=== PATIENT | male | born 1955 | race Caucasian/White ===

== ENCOUNTER 2016-07-29 09:17 | Emergency (ER) | payer OTHER ==
[2016-07-29] MEDS ORDERED: SODIUM CHLORIDE 0.9% 1,000 ML IV ONE (09:48)
--- NOTE | 2016-07-29 09:52 | ED ---
Fall HPI - General Chief Complaint: Fall Stated Complaint: Shortness of Breath Time Seen by Provider: 07/29/16 09:26 Source: patient, RN notes reviewed Mode of arrival: EMS - History of Present Illness Initial Comments: Patient is a 61-year-old male presents to the emergency room for elevation a fall injury. Patient states he had 2 beers last night. Patient states he drinks about 3 beers per day. Patient states he was getting off the toilet and fell into his bathtub. Patient states he hit the right side of his head against the faucet. Patient denies loss of consciousness. Patient denies taking blood thinners. Patient states he is usually on oxygen for COPD. Patient states that he was not on his oxygen when he fell so he continued to call for help until someone found him. Patient states he lives in a motel and someone from outside of his room called 911. Patient states he was feeling shortness of breath because he was not on his oxygen. Patient states she's not sure how long he laid in the bathtub before. Patient states he has an abrasion over his right shoulder with right shoulder pain. Patient states he is no longer short of breath because he is on oxygen again. Patient denies chest pain. Patient denies nausea or vomiting. Patient denies any other injuries during incident. Patient denies numbness or tingling when on his legs. Patient denies saddle anesthesia. Patient denies fecal or urinary incontinence. Patient denies suicidal or homicidal thoughts. - Related Data Home Medications Medication Instructions Recorded Confirmed Albuterol Inhaler [Ventolin Hfa 2 puff INHALATION RT-Q6H PRN 08/25/15 07/29/16 Inhaler] Ergocalciferol [Vitamin D2 50,000 unit PO QMONTH 08/25/15 07/29/16 (DRISDOL)] Flunisolide [Aerospan] 2 puff INHALATION RT-BID 12/14/15 07/29/16 Benazepril HCl 40 mg PO DAILY 07/29/16 07/29/16 Simvastatin [Zocor] 80 mg PO HS 07/29/16 07/29/16 rOPINIRole HCL [Requip] 0.25 - 0.5 mg PO HS 07/29/16 07/29/16 Previous Rx's Medication Instructions Recorded Digoxin [Lanoxin] 125 mcg PO DAILY tab 09/06/15 Insuln Asp Prt/Insulin Aspart 18 unit SQ AC-SUPPER vial 09/06/15 [NovoLOG MIX 70-30 VIAL] Insuln Asp Prt/Insulin Aspart 30 unit SQ AC-BRKFST vial 09/06/15 [NovoLOG MIX 70-30 VIAL] Pantoprazole [Protonix] 40 mg PO AC-BRKFST tablet. 09/06/15 Allergies Allergy/AdvReac Type Severity Reaction Status Date / Time No Known Allergies Allergy Verified 12/14/15 20:24 Review of Systems ROS Statement: Those systems with pertinent positive or pertinent negative responses have been documented in the HPI. ROS Other: All systems not noted in ROS Statement are negative. Past Medical History Past Medical History: Heart Failure, COPD, CVA/TIA, Diabetes Mellitus, Hypertension, Pneumonia Additional Past Medical History / Comment(s): irregular heart beat, hard time urinating have to sit it takes a while per patient [place], cva july 2015 and residual weakness in legs, etoh, falls, 02 2 liters n/c, etoh, increasing falls History of Any Multi-Drug Resistant Organisms: None Reported Past Surgical History: Appendectomy Additional Past Surgical History / Comment(s): removal testicles unsure why, one removed when he was 19 the other six years ago Past Anesthesia/Blood Transfusion Reactions: Unable to Obtain Past Psychological History: No Psychological Hx Reported Additional Psychological History / Comment(s): pt stated its getting difficult for hime to take care of himself when living alone-increased falls, uses a walker when up-has a nurse lalo the comes to help helps clean,shop. Smoking Status: Current every day smoker Past Alcohol Use History: Daily Additional Past Alcohol Use History / Comment(s): 6-7 beers a day, started smoking at age 10, ippd Past Drug Use History: None Reported Additional Drug Use History / Comment(s): quit drug use 1995 - Past Family History Father History Unknown: Yes Additional Family Medical History / Comment(s): from complications from alcoholism Mother Additional Family Medical History / Comment(s): committed suicide by hanging. General Exam - General Exam Comments Initial Comments: Sitting in the room, no distress. General appearance: alert, appears intoxicated Head exam: Present: atraumatic, normocephalic, normal inspection Eye exam: Present: normal appearance, PERRL, EOMI Pupils: Present: normal accommodation ENT exam: Present: normal exam Neck exam: Present: normal inspection Respiratory exam: Present: normal lung sounds bilaterally. Absent: respiratory distress Cardiovascular Exam: Present: normal rhythm, tachycardia, normal heart sounds GI/Abdominal exam: Present: soft, normal bowel sounds. Absent: distended, tenderness, guarding, rebound, rigid Right Shoulder Exam: Present: full ROM, abrasion (Small abrasion over her anterior shoulder). Absent: tenderness, tenderness over AC joint Neuro motor exam: Present: wrist extension intact, thumb opposition intact, thumb IP flexion intact, thumb adduction intact, fingers 2-5 abduction intact Vascular: Present: normal capillary refill (Capillary refill less than 2 seconds ), radial pulse (2+), ulnar pulse (2+) Back exam: Present: normal inspection Neurological exam: Present: alert Psychiatric exam: Present: normal affect, normal mood Skin exam: Present: warm, dry. Absent: rash Course Vital Signs 07/29/16 07/29/16 07/29/16 09:19 12:00 14:35 Temperature 98.0 F Pulse Rate 110 H 108 H 109 H Respiratory 20 20 18 Rate Blood Pressure 167/101 141/88 151/70 O2 Sat by Pulse 93 L 95 98 Oximetry 07/29/16 18:23 Temperature 98.1 F Pulse Rate 114 H Respiratory 20 Rate Blood Pressure 164/105 O2 Sat by Pulse 96 Oximetry Medical Decision Making - Medical Decision Making Patient is a 61-year-old male presents to the emergency room for evaluation fall injury. Patient is intoxicated. Brain/C-spine CT shows no acute findings. Shoulder x-ray shows no acute findings. Patient's alcohol level 241. Patient has no means of transportation home. Patient be discharged when clinically sober. Patient's BAT 0.00 at 1822. Patient will be discharged home. - Lab Data Result diagrams: 07/29/16 10:13 07/29/16 10:13 Lab Results 07/29/16 07/29/16 07/29/16 Range/Units 10:13 10:13 13:18 WBC 5.6 (3.8-10.6) k/uL RBC 4.78 (4.30-5.90) m/uL Hgb 14.7 (13.0-17.5) gm/dL Hct 44.8 (39.0-53.0) % MCV 93.8 (80.0-100.0) fL MCH 30.7 (25.0-35.0) pg MCHC 32.7 (31.0-37.0) g/dL RDW 13.8 (11.5-15.5) % Plt Count 135 L (150-450) k/uL Neutrophils % 77 % Lymphocytes % 15 % Monocytes % 5 % Eosinophils % 1 % Basophils % 1 % Neutrophils # 4.3 (1.3-7.7) k/uL Lymphocytes # 0.9 L (1.0-4.8) k/uL Monocytes # 0.3 (0-1.0) k/uL Eosinophils # 0.1 (0-0.7) k/uL Basophils # 0.0 (0-0.2) k/uL Sodium 140 (137-145) mmol/L Potassium 4.6 (3.5-5.1) mmol/L Chloride 93 L (98-107) mmol/L Carbon Dioxide 33 H (22-30) mmol/L Anion Gap 14 mmol/L BUN 13 (9-20) mg/dL Creatinine 0.55 L (0.66-1.25) mg/dL Est GFR (MDRD) Af Amer >60 (>60 ml/min/1.73 sqM) Est GFR (MDRD) Non-Af >60 (>60 ml/min/1.73 sqM) Glucose 113 H (74-99) mg/dL Calcium 8.7 (8.4-10.2) mg/dL Total Bilirubin 0.7 (0.2-1.3) mg/dL AST 48 (17-59) U/L ALT 36 (21-72) U/L Alkaline Phosphatase 75 (38-126) U/L Total Protein 7.5 (6.3-8.2) g/dL Albumin 4.3 (3.5-5.0) g/dL Urine Color Light Yellow Urine Appearance Clear (Clear) Urine pH 5.0 (5.0-8.0) Ur Specific [place] 1.004 (1.001-1.035) Urine Protein Trace H (Negative) Urine Glucose (UA) Negative (Negative) Urine Ketones Negative (Negative) Urine Blood Negative (Negative) Urine Nitrite Negative (Negative) Urine Bilirubin Negative (Negative) Urine Urobilinogen <2.0 (<2.0) mg/dL Ur Leukocyte Esterase Negative (Negative) Urine Opiates Screen Not Detected (NotDetected) Ur Oxycodone Screen Not Detected (NotDetected) Urine Methadone Screen Not Detected (NotDetected) Ur Propoxyphene Screen Not Detected (NotDetected) Ur Barbiturates Screen Not Detected (NotDetected) U Tricyclic Antidepress Not Detected (NotDetected) Ur Phencyclidine Scrn Not Detected (NotDetected) Ur Amphetamines Screen Not Detected (NotDetected) U Methamphetamines Scrn Not Detected (NotDetected) U Benzodiazepines Scrn Not Detected (NotDetected) Urine Cocaine Screen Not Detected (NotDetected) U Marijuana (THC) Screen Not Detected (NotDetected) Serum Alcohol 241 mg/dL - Radiology Data Radiology results: report reviewed, image reviewed Disposition Clinical Impression: Fall, Alcohol intoxication Disposition: HOME SELF-CARE Condition: Good Instructions: Alcohol Intoxication (ED), Alcohol Dependence (ED) Additional Instructions: Refrain from drinking alcohol. Please follow up with primary care provider in 1- 2 days. If any new symptom arises or symptoms worsen, return to ER as soon as possible. Referrals: Danny Morse MD [Primary Care Provider] - 1-2 days Time of Disposition: 18:22
[2016-07-29 10:34] LABS: ALT 36 U/L (21-72); AST 48 U/L (17-59); Alkaline Phosphatase 75 U/L (38-126); Anion Gap 14 mmol/L; Blood Urea Nitrogen 13 mg/dL (9-20); Calcium 8.7 mg/dL (8.4-10.2); Carbon Dioxide 33 mmol/L (22-30); Chloride 93 mmol/L (98-107); Glucose 113 mg/dL (74-99); Non-African American GFR(MDRD) >60 (>60 ml/min/1.73 sqM); Potassium 4.6 mmol/L (3.5-5.1); Sodium 140 mmol/L (137-145); Total Bilirubin 0.7 mg/dL (0.2-1.3); Total Protein 7.5 g/dL (6.3-8.2)
[2016-07-29 10:35] LABS: Basophils % (A) 1 %; CH 29.9; Eosinophils # (A) 0.1 k/uL (0-0.7); Eosinophils % (A) 1 %; HCT 44.8 % (39.0-53.0); HDW 2.47; HGB 14.7 gm/dL (13.0-17.5); Luc # (Auto) 0.08; Luc % (Auto) 1; Lymphocytes # (A) 0.9 k/uL (1.0-4.8); Lymphocytes % (A) 15 %; MCH 30.7 pg (25.0-35.0); MCHC 32.7 g/dL (31.0-37.0); MCV 93.8 fL (80.0-100.0); Mean Platelet Volume 7.8; Monocytes # (A) 0.3 k/uL (0-1.0); Monocytes % (A) 5 %; Neutrophils # (A) 4.3 k/uL (1.3-7.7); Neutrophils % (A) 77 %; RBC 4.78 m/uL (4.30-5.90); RDW 13.8 % (11.5-15.5); WBC 5.6 k/uL (3.8-10.6); WBC (Perox) 5.25
[2016-07-29 10:42] LABS: Alcohol 241 mg/dL
--- NOTE | 2016-07-29 11:22 | CT ---
EXAMINATION TYPE: CT brain cspine wo con DATE OF EXAM: 07/29/2016 10:45 AM COMPARISON: 12/14/2015 HISTORY: 61-year-old male with pain after fall CT DLP: DLP brain 1090.4 and Cervical 604.7 mGycm Automated exposure control for dose reduction was used. Technique: Examination of the head was done in axial plane without intravenous contrast. Coronal and sagittal reconstructions performed. CT of the cervical spine was obtained in axial plane without intravenous injection of contrast mater ial. Coronal and sagittal reformatted images were obtained from the axial views for evaluation of f ractures, spinal alignment and canal. FINDINGS: Head: There is no evidence of acute intracranial hemorrhage, acute ischemic changes, mass effect, or extra -axial fluid collection. There is no effacement of cerebral sulci or basal subarachnoid cisterns. T here is no hydrocephalus. There is no midline shift. Grant-white matter distinction is preserved. Redemonstrated 5 mm hyperdense nodule along the left paramedian foramen of [place]. Mild patchy perive ntricular and deep white matter hypodensities are unchanged. Rightward nasal septal deviation. Opacification of the right mastoid air cells persists. Orbits and g lobes are intact. No calvarial fracture. Cervical spine: No craniocervical junction abnormality, predental space widening, or prevertebral soft tissue swellin g. Stable advanced distention plate degenerative changes especially in the mid cervical spine with disc osteophyte complexes at C4-C5 and C5-C6 probably causing at least moderate canal stenosis. Stable grade 1 anterolisthesis at C2-C3 likely on a degenerative basis. Multilevel uncovertebral joint and facet degenerative change results in variable moderate to severe n euroforaminal stenoses. No acute fracture of the cervical spine. Sagittal and coronal reformatted images confirm above findings. COMBINED IMPRESSION: 1. No acute intracranial abnormality seen. 2. 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 No associated obstructive hydrocep halus at this time. 3. No acute fracture of the cervical spine. Stable degenerative grade 1 anterolisthesis at C2-C3 and moderate to severe spondylotic change as mentioned above. 4. Retained secretions within the right mastoid air cells. Correlate for any mastoid pain to exclude mastoiditis.
--- NOTE | 2016-07-29 11:28 | XR ---
EXAMINATION TYPE: XR shoulder complete RT DATE OF EXAM: 07/29/2016 11:10 AM COMPARISON: NONE HISTORY: 61-year-old male fall and right shoulder laceration with pain TECHNIQUE: 3 views FINDINGS: There is moderate to severe degenerative joint space narrowing with marginal spurring at the acromioc lavicular joint. Subacromial space is preserved. No acute fracture or dislocation. There is some matu re callus associated with sixth posterior right rib compatible with a remote rib fracture. IMPRESSION: Degenerative changes at the AC joint. No acute osseous abnormality seen. Old right posterior sixth ri b fracture deformity.
[2016-07-29] MEDS ORDERED: LORazepam 2 MG/ML SYRINGE IV STA (13:02)
[2016-07-29 13:25] LABS: Appearance,Urine Clear (Clear); Bilirubin,Urine Negative (Negative); Glucose,Urine (UA) Negative (Negative); Ketones,Urine Negative (Negative); Leukocyte Esterase,Urine Negative (Negative); Nitrite,Urine Negative (Negative); Protein,Urine Trace (Negative); Specific Gravity,Urine 1.004 (1.001-1.035); UA Billing (MACRO vs. MICRO) CHEM; Urobilinogen,Urine <2.0 mg/dL (<2.0)
[2016-07-29 18:24] VITALS: BP 164/105; PULSE 114; RESP 20; TEMP 98.1
== END 2016-07-29 18:40 | disposition home or self-care (01) ==
LOC: EC 09:17
DX: S40.211A Abrasion of right shoulder, initial encounter (principal); F10.129 Alcohol abuse with intoxication, unspecified; R00.0 Tachycardia, unspecified; J44.9 Chronic obstructive pulmonary disease, unspecified; I10 Essential (primary) hypertension; F17.200 Nicotine dependence, unspecified, uncomplicated; Z79.51 Long term (current) use of inhaled steroids; Z79.899 Other long term (current) drug therapy; W18.2XXA Fall in (into) shower or empty bathtub, initial encounter; Y92.59 Other trade areas as the place of occurrence of the external cause
CPT/HCPCS: 99285; 96374; 96361; 82075; 36415; 80053; 85025; 81003; 80306; 80320; 73030; 72125; 70450; J2060

== ENCOUNTER 2016-08-14 13:05 | Inpatient (IN) | payer OTHER ==
[2016-08-14] MEDS ORDERED: SODIUM CHLORIDE 0.9% 1,000 ML IV STA (13:19)
[2016-08-14] MEDS ORDERED: methylPREDNISolone SOD SUCCI 125 MG/2 ML VIAL IV STA (13:19)
[2016-08-14] MEDS ORDERED: SODIUM CHLORIDE 0.9% 500 ML IV STA (13:19)
[2016-08-14] MEDS ORDERED: IPRATROPIUM-ALBUTEROL 3 ML NEB INHALATION STA (13:19)
--- NOTE | 2016-08-14 13:26 | ED ---
SOB HPI - General Stated Complaint: EPS Time Seen by Provider: 08/14/16 13:14 - History of Present Illness Initial Comments: This 61-year-old white male presents with a complaint of difficulty in breathing. This is been relatively chronic pain but worse over the last several days. He is had a cough which is nonproductive. He states that it is worse when he smokes cigarettes. He does have a long-standing history of COPD. He is still actively utilizing tobacco. He also has a long-standing history of alcohol abuse. He states that he's been slowing down recently. He states that his last intake of alcohol was proximally 2 days and denies any current withdrawal symptoms. Report from EMS relates that the patient was found by home health care worker. She apparently relates that he has been in a wheelchair ever since she last saw him 3 days ago. He presents covered in stool and urine. He states that he has been too weak to ambulate. He denies any chest pains. He denies any known fevers. He does complain of bilateral lower extremity edema. He states that he is still been eating and drinking. Even though he is unable to ambulate, he has been ordering food and drink from the local [email or web address] store and they'll bring it directly into his house for him. He denies any nausea or vomiting. No other complaints or modifying factors. He apparently lives at home at the current time but ability to do so in the future is questionable. - Related Data Home Medications Medication Instructions Recorded Confirmed Albuterol Inhaler [Ventolin Hfa 2 puff INHALATION RT-Q6H PRN 08/25/15 08/14/16 Inhaler] Ergocalciferol [Vitamin D2 50,000 unit PO QMONTH 08/25/15 08/14/16 (DRISDOL)] Flunisolide [Aerospan] 2 puff INHALATION RT-BID 12/14/15 08/14/16 Benazepril HCl 40 mg PO DAILY 07/29/16 08/14/16 Simvastatin [Zocor] 80 mg PO HS 07/29/16 08/14/16 rOPINIRole HCL [Requip] 0.25 - 0.5 mg PO HS 07/29/16 08/14/16 Previous Rx's Medication Instructions Recorded Digoxin [Lanoxin] 125 mcg PO DAILY tab 09/06/15 Insuln Asp Prt/Insulin Aspart 18 unit SQ AC-SUPPER vial 09/06/15 [NovoLOG MIX 70-30 VIAL] Insuln Asp Prt/Insulin Aspart 30 unit SQ AC-BRKFST vial 09/06/15 [NovoLOG MIX 70-30 VIAL] Pantoprazole [Protonix] 40 mg PO AC-BRKFST tablet. 09/06/15 Allergies Allergy/AdvReac Type Severity Reaction Status Date / Time No Known Allergies Allergy Verified 08/14/16 14:16 Review of Systems ROS Statement: Those systems with pertinent positive or pertinent negative responses have been documented in the HPI. ROS Other: All systems not noted in ROS Statement are negative. Past Medical History Past Medical History: Heart Failure, COPD, CVA/TIA, Diabetes Mellitus, Hypertension, Pneumonia Additional Past Medical History / Comment(s): irregular heart beat, hard time urinating have to sit it takes a while per patient kake, cva july 2015 and residual weakness in legs, etoh, falls, 02 2 liters n/c, etoh, increasing falls History of Any Multi-Drug Resistant Organisms: None Reported Past Surgical History: Appendectomy Additional Past Surgical History / Comment(s): removal testicles unsure why, one removed when he was 19 the other six years ago Past Anesthesia/Blood Transfusion Reactions: Unable to Obtain Past Psychological History: No Psychological Hx Reported Additional Psychological History / Comment(s): pt stated its getting difficult for hime to take care of himself when living alone-increased falls, uses a walker when up-has a nurse lalo the comes to help helps clean,shop. Smoking Status: Current every day smoker Past Alcohol Use History: Daily Additional Past Alcohol Use History / Comment(s): 6-7 beers a day, started smoking at age 10, ippd Past Drug Use History: None Reported Additional Drug Use History / Comment(s): quit drug use 1995 - Past Family History Father History Unknown: Yes Additional Family Medical History / Comment(s): from complications from alcoholism Mother Additional Family Medical History / Comment(s): committed suicide by hanging. General Exam - General Exam Comments Initial Comments: GENERAL: The patient appears malnourished and cachectic. He is covered in feces and urine. VITAL SIGNS: Heart rate, blood pressure, respiratory rate reviewed as recorded in nurse's notes. EYES: Pupils are round and reactive. Extraocular movements are intact. There is bilateral moderate conjunctival erythema. ENT: No external evidence of injury, swelling, or ecchymosis. Airway is patent. Throat is clear. NECK: Nontender. No swelling or evidence of injury. No subcutaneous emphysema. Trachea is midline. No thyroid mass. HEART: Regular rate and rhythm. Good peripheral pulses. LUNGS/CHEST: There is diffuse significant wheezing and decreased aeration noted bilaterally. Pulse ox is approximately 71% on room air. No ecchymosis, subcutaneous emphysema, or tenderness. ABDOMEN: Abdomen soft without tenderness. No palpable masses or organomegaly. No peritoneal signs. No abdominal wall swelling or ecchymosis. EXTREMITIES: No extremity tenderness. Normal muscle tone and function. No thoracolumbar tenderness. There is moderate edema present to bilateral lower extremities. NEUROLOGIC: Sensation is grossly intact. Cranial nerve exam reveals face is symmetrical, tongue is midline, speech is clear. SKIN: No abrasions or ecchymosis is noted. No induration or masses noted. There is slight erythema noted to bilateral lower extremities. PSYCHIATRIC: Alert and oriented. Appropriate behavior and judgment. Course Vital Signs 08/14/16 08/14/16 08/14/16 13:25 14:05 14:15 Temperature 98.8 F Pulse Rate 106 H 110 H Respiratory 22 22 Rate Blood Pressure 147/68 O2 Sat by Pulse 78 L Oximetry 08/14/16 08/14/16 08/14/16 14:32 14:36 15:02 Temperature Pulse Rate 100 113 H 104 H Respiratory 22 18 Rate Blood Pressure 155/70 164/73 O2 Sat by Pulse 96 97 Oximetry 08/14/16 08/14/16 08/14/16 15:21 16:08 18:02 Temperature Pulse Rate 105 H 104 H 104 H Respiratory 22 22 18 Rate Blood Pressure 168/79 151/72 O2 Sat by Pulse 91 L 91 L Oximetry Medical Decision Making - Medical Decision Making The patient was seen and examined. All diagnostics were reviewed. The EKG shows a sinus tachycardia at a rate of 107. There is some possible left atrial enlargement. The FL interval is 174, castration is 102, and QTc interval is 448. There is no acute ST-T wave changes otherwise noted. The patient's sodium and chloride came back fairly low. He is moderately hydrated. He had approximately 1 L of normal saline. The remainder of labs came back showing that his BNP is fairly elevated. It is felt as though he does have a degree of conjunctivitis and is given some eyedrops. Initially, he was started on BiPAP as he was quite hypoxic and having difficulty in breathing. An ABG was done. It is felt as though the results are incorrect. It is felt as though the draw is a venous draw on the side where he is receiving IV fluids. The results do not seem to make much sense and do not correlate with his bicarb on his labs. He receives 3 breathing treatments and his breathing does improve although he remains moderately hypoxic. On last check was 92% on 5 L. He states that he feels much improved. Also receives some Solu-Medrol intravenously. His d- dimer came back elevated and a CT angiogram of his chest is ordered to rule out the possibility of pulmonary embolism. Congestive heart failure is in the differential as well. A repeat ABG is ordered and this is much improved and it is felt as though this is accurate. Is still does show a degree of hypoxia and some slight hypercapnia. The patient had a computed tomography scan of the thorax done and this does not show any definitive PE but is also a suboptimal study per radiologist. No infiltrates are identified. His felt as though his difficulty breathing is multifocal. He likely does have primarily a COPD exacerbation. The possibility of a bronchitis certainly is possible as well. The possibility of a degree of underlying CHF is possible. It is felt as though he benefit from admission to the intensive care unit. Case will be discussed with Dr. Morse in the near future. Approximately 45 minutes of critical care time was utilized and the treatment of the patient. Case will also be discussed with ICU physician in the near future. - Lab Data Result diagrams: 08/14/16 14:20 08/14/16 14:20 Lab Results 08/14/16 08/14/16 08/14/16 Range/Units 14:20 14:20 14:20 WBC 9.0 (3.8-10.6) k/uL RBC 4.80 (4.30-5.90) m/uL Hgb 14.7 (13.0-17.5) gm/dL Hct 43.7 (39.0-53.0) % MCV 90.9 (80.0-100.0) fL MCH 30.6 (25.0-35.0) pg MCHC 33.7 (31.0-37.0) g/dL RDW 13.7 (11.5-15.5) % Plt Count 57 L D (150-450) k/uL Neutrophils % (Manual) 86.0 % Band Neutrophils % 4.0 % Lymphocytes % (Manual) 5.0 % Monocytes % (Manual) 5.0 % Neutrophils # (Manual) 8.1 H (1.3-7.7) k/uL Lymphocytes # (Manual) 0.5 L (1.0-4.8) k/uL Monocytes # (Manual) 0.5 (0-1.0) k/uL Nucleated RBCs 0 (0-0) /100 WBC Manual Slide Review Performed Large Platelets Present RBC Morphology Normal PT (9.0-12.0) sec INR (<1.1) APTT (22.0-30.0) sec D-Dimer (<0.60) mg/L FEU Sample Site ABG pH (7.35-7.45) ABG pCO2 (35-45) mmHg ABG pO2 (83-108) mmHg ABG HCO3 (21-25) mmol/L ABG Total CO2 (19-24) mmol/L ABG O2 Saturation (94-97) % ABG Base Excess mmol/L FiO2 % Sodium 117 L* (137-145) mmol/L Potassium 5.0 (3.5-5.1) mmol/L Chloride 74 L* (98-107) mmol/L Carbon Dioxide 34 H (22-30) mmol/L Anion Gap 9 mmol/L BUN 21 H (9-20) mg/dL Creatinine 0.80 (0.66-1.25) mg/dL Est GFR (MDRD) Af Amer >60 (>60 ml/min/1.73 sqM) Est GFR (MDRD) Non-Af >60 (>60 ml/min/1.73 sqM) Glucose 137 H (74-99) mg/dL Calcium 8.3 L (8.4-10.2) mg/dL Magnesium 1.8 (1.6-2.3) mg/dL Total Bilirubin 0.9 (0.2-1.3) mg/dL AST 1651 H (17-59) U/L ALT 681 H (21-72) U/L Alkaline Phosphatase 64 (38-126) U/L Total Creatine Kinase 342 H (55-170) U/L CK-MB (CK-2) 17.0 H* (0.0-2.4) ng/mL CK-MB (CK-2) Rel Index 5.0 Troponin I 0.033 (0.000-0.034) ng/mL NT-Pro-B Natriuret Pep pg/mL Total Protein 6.7 (6.3-8.2) g/dL Albumin 3.9 (3.5-5.0) g/dL Urine Color Urine Appearance (Clear) Urine pH (5.0-8.0) Ur Specific Fidelity (1.001-1.035) Urine Protein (Negative) Urine Glucose (UA) (Negative) Urine Ketones (Negative) Urine Blood (Negative) Urine Nitrite (Negative) Urine Bilirubin (Negative) Urine Urobilinogen (<2.0) mg/dL Ur Leukocyte Esterase (Negative) Urine WBC (0-5) /hpf Hyaline Casts (0-2) /lpf Urine Mucus (None) /hpf Digoxin <0.4 ng/mL C. difficile (EIA) Intrp (Negative) 08/14/16 08/14/16 08/14/16 Range/Units 14:20 14:20 14:20 WBC (3.8-10.6) k/uL RBC (4.30-5.90) m/uL Hgb (13.0-17.5) gm/dL Hct (39.0-53.0) % MCV (80.0-100.0) fL MCH (25.0-35.0) pg MCHC (31.0-37.0) g/dL RDW (11.5-15.5) % Plt Count (150-450) k/uL Neutrophils % (Manual) % Band Neutrophils % % Lymphocytes % (Manual) % Monocytes % (Manual) % Neutrophils # (Manual) (1.3-7.7) k/uL Lymphocytes # (Manual) (1.0-4.8) k/uL Monocytes # (Manual) (0-1.0) k/uL Nucleated RBCs (0-0) /100 WBC Manual Slide Review Large Platelets RBC Morphology PT 10.7 (9.0-12.0) sec INR 1.1 (<1.1) APTT 25.7 (22.0-30.0) sec D-Dimer 1.92 H (<0.60) mg/L FEU Sample Site ABG pH (7.35-7.45) ABG pCO2 (35-45) mmHg ABG pO2 (83-108) mmHg ABG HCO3 (21-25) mmol/L ABG Total CO2 (19-24) mmol/L ABG O2 Saturation (94-97) % ABG Base Excess mmol/L FiO2 % Sodium (137-145) mmol/L Potassium (3.5-5.1) mmol/L Chloride (98-107) mmol/L Carbon Dioxide (22-30) mmol/L Anion Gap mmol/L BUN (9-20) mg/dL Creatinine (0.66-1.25) mg/dL Est GFR (MDRD) Af Amer (>60 ml/min/1.73 sqM) Est GFR (MDRD) Non-Af (>60 ml/min/1.73 sqM) Glucose (74-99) mg/dL Calcium (8.4-10.2) mg/dL Magnesium (1.6-2.3) mg/dL Total Bilirubin (0.2-1.3) mg/dL AST (17-59) U/L ALT (21-72) U/L Alkaline Phosphatase (38-126) U/L Total Creatine Kinase (55-170) U/L CK-MB (CK-2) (0.0-2.4) ng/mL CK-MB (CK-2) Rel Index Troponin I (0.000-0.034) ng/mL NT-Pro-B Natriuret Pep 3430 pg/mL Total Protein (6.3-8.2) g/dL Albumin (3.5-5.0) g/dL Urine Color Urine Appearance (Clear) Urine pH (5.0-8.0) Ur Specific Fidelity (1.001-1.035) Urine Protein (Negative) Urine Glucose (UA) (Negative) Urine Ketones (Negative) Urine Blood (Negative) Urine Nitrite (Negative) Urine Bilirubin (Negative) Urine Urobilinogen (<2.0) mg/dL Ur Leukocyte Esterase (Negative) Urine WBC (0-5) /hpf Hyaline Casts (0-2) /lpf Urine Mucus (None) /hpf Digoxin ng/mL C. difficile (EIA) Intrp (Negative) 08/14/16 08/14/16 08/14/16 Range/Units 15:04 15:23 15:23 WBC (3.8-10.6) k/uL RBC (4.30-5.90) m/uL Hgb (13.0-17.5) gm/dL Hct (39.0-53.0) % MCV (80.0-100.0) fL MCH (25.0-35.0) pg MCHC (31.0-37.0) g/dL RDW (11.5-15.5) % Plt Count (150-450) k/uL Neutrophils % (Manual) % Band Neutrophils % % Lymphocytes % (Manual) % Monocytes % (Manual) % Neutrophils # (Manual) (1.3-7.7) k/uL Lymphocytes # (Manual) (1.0-4.8) k/uL Monocytes # (Manual) (0-1.0) k/uL Nucleated RBCs (0-0) /100 WBC Manual Slide Review Large Platelets RBC Morphology PT (9.0-12.0) sec INR (<1.1) APTT (22.0-30.0) sec D-Dimer (<0.60) mg/L FEU Sample Site lbrac ABG pH 7.21 L (7.35-7.45) ABG pCO2 <20 L* (35-45) mmHg ABG pO2 49 L (83-108) mmHg ABG HCO3 3 L* (21-25) mmol/L ABG Total CO2 3 L (19-24) mmol/L ABG O2 Saturation 78.0 L (94-97) % ABG Base Excess -24.5 mmol/L FiO2 40 % Sodium (137-145) mmol/L Potassium (3.5-5.1) mmol/L Chloride (98-107) mmol/L Carbon Dioxide (22-30) mmol/L Anion Gap mmol/L BUN (9-20) mg/dL Creatinine (0.66-1.25) mg/dL Est GFR (MDRD) Af Amer (>60 ml/min/1.73 sqM) Est GFR (MDRD) Non-Af (>60 ml/min/1.73 sqM) Glucose (74-99) mg/dL Calcium (8.4-10.2) mg/dL Magnesium (1.6-2.3) mg/dL Total Bilirubin (0.2-1.3) mg/dL AST (17-59) U/L ALT (21-72) U/L Alkaline Phosphatase (38-126) U/L Total Creatine Kinase (55-170) U/L CK-MB (CK-2) (0.0-2.4) ng/mL CK-MB (CK-2) Rel Index Troponin I (0.000-0.034) ng/mL NT-Pro-B Natriuret Pep pg/mL Total Protein (6.3-8.2) g/dL Albumin (3.5-5.0) g/dL Urine Color Yellow Urine Appearance Cloudy (Clear) Urine pH 6.0 (5.0-8.0) Ur Specific Fidelity 1.020 (1.001-1.035) Urine Protein 2+ H (Negative) Urine Glucose (UA) Negative (Negative) Urine Ketones Trace H (Negative) Urine Blood Moderate H (Negative) Urine Nitrite Positive (Negative) Urine Bilirubin Negative (Negative) Urine Urobilinogen 2.0 (<2.0) mg/dL Ur Leukocyte Esterase Negative (Negative) Urine WBC 3 (0-5) /hpf Hyaline Casts 12 H (0-2) /lpf Urine Mucus Rare H (None) /hpf Digoxin ng/mL C. difficile (EIA) Intrp Negative (Negative) 08/14/16 Range/Units 16:25 WBC (3.8-10.6) k/uL RBC (4.30-5.90) m/uL Hgb (13.0-17.5) gm/dL Hct (39.0-53.0) % MCV (80.0-100.0) fL MCH (25.0-35.0) pg MCHC (31.0-37.0) g/dL RDW (11.5-15.5) % Plt Count (150-450) k/uL Neutrophils % (Manual) % Band Neutrophils % % Lymphocytes % (Manual) % Monocytes % (Manual) % Neutrophils # (Manual) (1.3-7.7) k/uL Lymphocytes # (Manual) (1.0-4.8) k/uL Monocytes # (Manual) (0-1.0) k/uL Nucleated RBCs (0-0) /100 WBC Manual Slide Review Large Platelets RBC Morphology PT (9.0-12.0) sec INR (<1.1) APTT (22.0-30.0) sec D-Dimer (<0.60) mg/L FEU Sample Site r banner ABG pH 7.29 L (7.35-7.45) ABG pCO2 78 H* (35-45) mmHg ABG pO2 62 L (83-108) mmHg ABG HCO3 36 H (21-25) mmol/L ABG Total CO2 38 H (19-24) mmol/L ABG O2 Saturation 87.0 L (94-97) % ABG Base Excess 9.3 mmol/L FiO2 40 % Sodium (137-145) mmol/L Potassium (3.5-5.1) mmol/L Chloride (98-107) mmol/L Carbon Dioxide (22-30) mmol/L Anion Gap mmol/L BUN (9-20) mg/dL Creatinine (0.66-1.25) mg/dL Est GFR (MDRD) Af Amer (>60 ml/min/1.73 sqM) Est GFR (MDRD) Non-Af (>60 ml/min/1.73 sqM) Glucose (74-99) mg/dL Calcium (8.4-10.2) mg/dL Magnesium (1.6-2.3) mg/dL Total Bilirubin (0.2-1.3) mg/dL AST (17-59) U/L ALT (21-72) U/L Alkaline Phosphatase (38-126) U/L Total Creatine Kinase (55-170) U/L CK-MB (CK-2) (0.0-2.4) ng/mL CK-MB (CK-2) Rel Index Troponin I (0.000-0.034) ng/mL NT-Pro-B Natriuret Pep pg/mL Total Protein (6.3-8.2) g/dL Albumin (3.5-5.0) g/dL Urine Color Urine Appearance (Clear) Urine pH (5.0-8.0) Ur Specific Fidelity (1.001-1.035) Urine Protein (Negative) Urine Glucose (UA) (Negative) Urine Ketones (Negative) Urine Blood (Negative) Urine Nitrite (Negative) Urine Bilirubin (Negative) Urine Urobilinogen (<2.0) mg/dL Ur Leukocyte Esterase (Negative) Urine WBC (0-5) /hpf Hyaline Casts (0-2) /lpf Urine Mucus (None) /hpf Digoxin ng/mL C. difficile (EIA) Intrp (Negative) Disposition Clinical Impression: Bilateral conjunctivitis, Acute respiratory failure, Acute exacerbation of chronic obstructive airways disease, Alcohol abuse, Lower extremity edema, Elevated d-dimer, Elevated brain natriuretic peptide (BNP) level, Hyponatremia, Hypochloremia, Inability to walk, Weakness, UTI (urinary tract infection), Transaminitis, Diarrhea Disposition: ADMITTED IP TO THIS HOSP Condition: Fair Referrals: Danny Morse MD [Primary Care Provider] - 1-2 days Time of Disposition: 18:23 Decision Date: 08/14/16 Decision Time: 18:23
[2016-08-14] MEDS: MAGNESIUM SULFATE-D5W PMX 1 GM in DEXTROSE/WATER 1 100ML.BAG IVPB SCH ×2 (14:26→15:35)
[2016-08-14 14:43] LABS: INR 1.1 (<1.1); Partial Thromboplastin Time 25.7 sec (22.0-30.0); Prothrombin Time 10.7 sec (9.0-12.0)
[2016-08-14 14:46] LABS: ALT 681 U/L (21-72); Alkaline Phosphatase 64 U/L (38-126); Anion Gap 9 mmol/L; Blood Urea Nitrogen 21 mg/dL (9-20); Calcium 8.3 mg/dL (8.4-10.2); Carbon Dioxide 34 mmol/L (22-30); Digoxin <0.4 ng/mL; Glucose 137 mg/dL (74-99); Magnesium 1.8 mg/dL (1.6-2.3); Non-African American GFR(MDRD) >60 (>60 ml/min/1.73 sqM); Total Bilirubin 0.9 mg/dL (0.2-1.3); Total Protein 6.7 g/dL (6.3-8.2)
[2016-08-14 14:52] LABS: CH 30.7; HCT 43.7 % (39.0-53.0); HDW 2.79; HGB 14.7 gm/dL (13.0-17.5); MCH 30.6 pg (25.0-35.0); MCHC 33.7 g/dL (31.0-37.0); MCV 90.9 fL (80.0-100.0); Mean Platelet Volume 9.7; RDW 13.7 % (11.5-15.5); WBC (Perox) 8.27
--- NOTE | 2016-08-14 14:54 | XR ---
EXAMINATION TYPE: XR chest 1V portable DATE OF EXAM: 08/14/2016 2:44 PM HISTORY: Shortness of breath. COMPARISON: 12/14/2015 TECHNIQUE: Single view of the chest is submitted. FINDINGS: Demonstrated are scattered senescent parenchymal change. There is no evidence for focal infiltrate. The heart is stable. Hilar and mediastinal structures are within normal limits. Degenerative changes are seen of the dorsal spine. Remote right-sided rib fractures. IMPRESSION: 1. Chronic changes without evidence for acute pulmonary disease.
[2016-08-14 15:08] LABS: Troponin I 0.033 ng/mL (0.000-0.034)
[2016-08-14 15:10] LABS: AST 1651 U/L (17-59); Chloride 74 mmol/L (98-107); Sodium 117 mmol/L (137-145)
[2016-08-14] MEDS ORDERED: SODIUM CHLORIDE 0.9% 1,000 ML IV ONE (15:14)
[2016-08-14 15:15] LABS: Add Differential Manual Differential
[2016-08-14] MEDS ORDERED: ALBUTEROL NEBULIZED 2.5 MG/3 ML INHALATION STA (15:15)
[2016-08-14 15:16] LABS: Manual Review Performed; Nucleated Red Blood Cells 0 /100 WBC (0-0); Total Cells Counted 100
[2016-08-14 15:17] LABS: Large Platelets Present; RBC Morphology Normal
[2016-08-14 15:22] LABS: ABG PH 7.21 (7.35-7.45)
[2016-08-14 15:24] LABS: ABG PCO2 <20 mmHg (35-45)
[2016-08-14 15:25] LABS: ABG Base Excess -24.5 mmol/L; ABG HCO3 3 mmol/L (21-25); ABG PO2 49 mmHg (83-108); ABG TCO2 3 mmol/L (19-24)
[2016-08-14 15:33] LABS: Appearance,Urine Cloudy (Clear); Bilirubin,Urine Negative (Negative); Glucose,Urine (UA) Negative (Negative); Ketones,Urine Trace (Negative); Leukocyte Esterase,Urine Negative (Negative); Mucus,Urine Rare /hpf; Nitrite,Urine Positive (Negative); Particle Count 13231; Protein,Urine 2+ (Negative); UA Billing (MACRO vs. MICRO) MICRO; WBC,Urine 3 /hpf (0-5)
[2016-08-14] MEDS ORDERED: RX INFO: IV CONTRAST WAS GIVEN 1 EACH MISC MISCELLANE PRN (15:42)
[2016-08-14] MEDS ORDERED: TOBRAMYCIN 0.3% OPHTH DROPS 5 ML BTL BOTH EYES STA (16:33)
[2016-08-14 16:37] LABS: ABG Base Excess 9.3 mmol/L; ABG HCO3 36 mmol/L (21-25); ABG PCO2 78 mmHg (35-45); ABG PH 7.29 (7.35-7.45); ABG PO2 62 mmHg (83-108); ABG TCO2 38 mmol/L (19-24)
--- NOTE | 2016-08-14 17:17 | CT ---
EXAMINATION TYPE: CT angio chest DATE OF EXAM: 08/14/2016 5:08 PM COMPARISON: NONE HISTORY: Patient poor historian. Appears congested shortness of breath per order. CT DLP: 604 mGycm. Automated Exposure Control for Dose Reduction was Utilized. CONTRAST: CTA scan of the thorax is performed with IV Contrast, patient injected with 100 mL of Omnipaque 350, pulmonary embolism protocol. MIP Images are created on CT scanner and reviewed. FINDINGS: LUNGS: There is respiratory motion artifact seen making evaluation suboptimal particularly for subcen timeter nodules. There is background mild emphysematous change. There is linear scarring or atelectas is bilaterally in the mid to lower lungs. No concerning parenchymal greater than 1 cm nodule or mass is present bilaterally. No pleural effusion or pneumothorax is seen. There is mild peribronchial wall thickening seen centrally bilaterally. MEDIASTINUM: There is suboptimal bolus without large central saddle pulmonary embolism, smaller pulmo nary emboli cannot be excluded on this exam. Majority of contrast is pooled in SVC. There are no grea ter than 1 cm hilar or mediastinal lymph nodes. No significant pericardial effusion is seen. Cardio megaly is present. OTHER: Visualized liver is diffusely low dense consistent with marked fatty infiltration. Slight scol iotic curvature to the spine is seen. Bilateral gynecomastia is present. IMPRESSION: 1. Suboptimal study, no large central saddle pulmonary embolism, smaller lobar as well as segmental a nd subsegmental PE cannot be excluded on this study. 2. Cardiomegaly with scattered linear scarring and/or atelectasis in mid to lower lungs bilaterally. No suspicious focal consolidation. Significant respiratory motion artifact.
[2016-08-14] MEDS ORDERED: NALOXONE 0.4 MG/ML 1 ML VIAL IV PRN (18:45)
[2016-08-14] MEDS ORDERED: ERGOCALCIFEROL 50,000 UNIT CAP PO SCH (19:00)
[2016-08-14] MEDS: IPRATROPIUM-ALBUTEROL 3 ML NEB INHALATION PRN (19:33)
[2016-08-14] MEDS: BUDESONIDE 0.5 MG/2 ML NEBU INHALATION SCH (19:33)
[2016-08-14] MEDS: PANTOPRAZOLE 40 MG/10 ML VIAL IV SCH (19:54)
[2016-08-14] MEDS: ENOXAPARIN 40 MG/0.4 ML SYRINGE SQ SCH (19:57)
[2016-08-14] MEDS: TOBRAMYCIN 0.3% OPHTH DROPS 5 ML BTL BOTH EYES SCH (19:58)
[2016-08-14 22:19] LABS: Glucose,Whole Blood 189 mg/dL (75-99)
[2016-08-14] MEDS: INSULIN LISPRO (humaLOG) 300 UNIT/3 ML VIAL SQ SCH (22:30)
[2016-08-14] MEDS: ATORVASTATIN 40 MG TAB PO SCH ×2 (22:33→22:48)
[2016-08-14 22:45] LABS: Hemoglobin A1C 5.7 % (4.2-6.1)
[2016-08-15] MEDS: LORazepam 2 MG/ML SYRINGE IV PRN (05:54)
[2016-08-15 06:04] LABS: Basophils % (A) 0 %; CH 30.7; CHCM 33.2; Eosinophils % (A) 0 %; HCT 42.1 % (39.0-53.0); HDW 2.68; HGB 13.3 gm/dL (13.0-17.5); Luc # (Auto) 0.09; Luc % (Auto) 1; Lymphocytes # (A) 0.3 k/uL (1.0-4.8); Lymphocytes % (A) 4 %; MCH 29.2 pg (25.0-35.0); MCHC 31.5 g/dL (31.0-37.0); MCV 92.8 fL (80.0-100.0); Mean Platelet Volume 9.1; Monocytes # (A) 0.4 k/uL (0-1.0); Monocytes % (A) 5 %; Neutrophils % (A) 90 %; RBC 4.53 m/uL (4.30-5.90); WBC 7.8 k/uL (3.8-10.6); WBC (Perox) 7.79
[2016-08-15 06:20] LABS: ALT 439 U/L (21-72); AST 619 U/L (17-59); Alkaline Phosphatase 52 U/L (38-126); Anion Gap 5 mmol/L; Blood Urea Nitrogen 16 mg/dL (9-20); Calcium 8.1 mg/dL (8.4-10.2); Carbon Dioxide 36 mmol/L (22-30); Chloride 84 mmol/L (98-107); Glucose 124 mg/dL (74-99); Magnesium 2.1 mg/dL (1.6-2.3); Non-African American GFR(MDRD) >60 (>60 ml/min/1.73 sqM); Phosphorous 1.7 mg/dL (2.5-4.5); Potassium 4.7 mmol/L (3.5-5.1); Sodium 125 mmol/L (137-145); Total Bilirubin 0.8 mg/dL (0.2-1.3)
[2016-08-15] MEDS: IPRATROPIUM-ALBUTEROL 3 ML NEB INHALATION PRN ×4 (07:42→20:15)
[2016-08-15] MEDS: BUDESONIDE 0.5 MG/2 ML NEBU INHALATION SCH ×2 (07:42→20:15)
--- NOTE | 2016-08-15 08:22 | XR ---
EXAMINATION TYPE: XR chest 1V DATE OF EXAM: 08/15/2016 6:41 AM COMPARISON: 08/14/2016 HISTORY: Respiratory failure, shortness of breath TECHNIQUE: Single frontal view of the chest is obtained. FINDINGS: Mild infiltrate is developed along the right middle lobe with some minimal atelectasis may be in the left base IMPRESSION: 1. Suggestion of right middle lobe infiltrate. Correlate for pneumonia. Follow-up is recommended.
[2016-08-15 08:28] LABS: Glucose,Whole Blood 136 mg/dL (75-99)
[2016-08-15] MEDS: DIGOXIN 125 MCG TAB PO SCH (09:10)
[2016-08-15] MEDS: ENOXAPARIN 40 MG/0.4 ML SYRINGE SQ SCH (09:10)
[2016-08-15] MEDS: INSULIN LISPRO (humaLOG) 300 UNIT/3 ML VIAL SQ SCH ×4 (09:11→21:07)
[2016-08-15] MEDS: PANTOPRAZOLE 40 MG/10 ML VIAL IV SCH (09:11)
[2016-08-15] MEDS: LISINOPRIL 20 MG TAB PO SCH (09:11)
[2016-08-15] MEDS: TOBRAMYCIN 0.3% OPHTH DROPS 5 ML BTL BOTH EYES SCH ×4 (09:12→21:09)
--- NOTE | 2016-08-15 12:14 | P.CNPUL ---
History of Present Illness Consult date: 08/15/16 Requesting physician: Danny Morse Reason for consult: other (Hypoxic respiratory failure) Chief complaint: Shortness of breath History of present illness: This is a 61-year-old male patient being evaluated and examined today in the intensive care unit this patient came into the emergency room with shortness of breath that had been increasing in severity over the last few days. Patient has had a nonproductive cough. Patient is also an active smoker and has a long- standing history of COPD. He also has a long-standing history of alcohol abuse. According to the chart the patient was found by a home health care worker that usually sees him every 3 days or so and he was covered in stool and urine and was in a wheelchair. The patient has been too weak to ambulate on his own and then ordering delivery food to be brought directly to him. In the ER the patient had EKG which showed sinus tachycardia. He did have a 1 L bolus of normal saline. He did have an elevated BNP as well as some conjunctivitis and was given eyedrops. The patient was started on BiPAP due to being hypoxic and shortness of breath. There is some controversy on his ABG results on whether they are accurate or not during the evaluation in the emergency room. Patient's d-dimer also was elevated and had a CT A of his chest to rule out pulmonary embolism. The CTA was negative for PE and showed the possibility of some congestive heart failure. The patient was admitted with bacterial conjunctivitis, acute respiratory failure, acute exacerbation of COPD, alcohol abuse, bilateral lower extremity edema, elevated d-dimer, elevated BNP, hyponatremia hypochloremia, debility and weakness, UTI, transaminitis, and diarrhea. On examination the patient is currently on BiPAP, he appears tired and has intermittent confusion. Patient does have some bilateral lower extremity edema as well. Patient is denying any cough at this time however continues to state that he take feels short of breath when the BiPAP is taken off. Review of Systems 14 point review of systems was completed and is negative other than what is noted in the HPI. Past Medical History Past Medical History: Atrial Fibrillation, Cancer, Heart Failure, COPD, CVA/TIA , Diabetes Mellitus, GERD/Reflux, Hearing Disorder / Deafness, Hypertension, Pneumonia Additional Past Medical History / Comment(s): Paroxysmal Afib, cva july 2015 and residual weakness in legs, 02 2 liters n/c ATC, etoh abuse, chronic hyponatremia , generalized weakness, increasing falls, prostate cancer with sx, nome bilaterally, difficulty with urinary stream, DDD, chronic low back pain. History of Any Multi-Drug Resistant Organisms: None Reported Past Surgical History: Appendectomy, Prostate Surgery Additional Past Surgical History / Comment(s): removal testicles -does not know reason- one removed when he was 19 the other six years ago, prostatectomy, colonoscopy. Past Anesthesia/Blood Transfusion Reactions: No Reported Reaction Past Psychological History: No Psychological Hx Reported Additional Psychological History / Comment(s): Pt stated its getting difficult for hime to take care of himself when living alone-increased falls, uses a walker some but now mostly in wheelchair, home O2 at 2L/NC ATC, has a home connect lpn the comes to help helps clean shop. Smoking Status: Current every day smoker Past Alcohol Use History: Daily Additional Past Alcohol Use History / Comment(s): 6-7 beers a day-last drank 3 days ago, started smoking at age 10, 1 ppd. Past Drug Use History: Cocaine, Marijuana Additional Drug Use History / Comment(s): quit drug use 1995 - Past Family History Father History Unknown: Yes Additional Family Medical History / Comment(s): from complications from alcoholism Mother Family Medical History: Unable to Obtain Additional Family Medical History / Comment(s): committed suicide by hanging. Medications and Allergies Home Medications Medication Instructions Recorded Confirmed Type Albuterol Inhaler [Ventolin Hfa 2 puff INHALATION RT-Q6H PRN 08/25/15 08/14/16 History Inhaler] Ergocalciferol [Vitamin D2 50,000 unit PO QMONTH 08/25/15 08/14/16 History (DRISDOL)] Flunisolide [Aerospan] 2 puff INHALATION RT-BID 12/14/15 08/14/16 History Benazepril HCl 40 mg PO DAILY 07/29/16 08/14/16 History Simvastatin [Zocor] 80 mg PO HS 07/29/16 08/14/16 History rOPINIRole HCL [Requip] 0.25 - 0.5 mg PO HS 07/29/16 08/14/16 History Allergies Allergy/AdvReac Type Severity Reaction Status Date / Time No Known Allergies Allergy Verified 08/14/16 14:16 Physical Exam Vitals: Vital Signs Temp Pulse Resp BP Pulse Ox 08/15/16 11:46 101 H 08/15/16 11:35 94 08/15/16 11:00 98.2 F 94 18 102/50 96 08/15/16 10:00 102 H 14 132/65 96 08/15/16 09:00 107 H 25 H 174/81 94 L 08/15/16 08:00 112 H 18 149/90 92 L 08/15/16 07:52 106 H 08/15/16 07:42 106 H 08/15/16 05:35 97 18 174/84 92 L 08/15/16 04:32 96 18 148/77 92 L 08/15/16 03:30 96 19 142/86 92 L 08/15/16 02:30 98 18 140/65 92 L 08/15/16 01:10 97 19 142/74 95 08/14/16 22:39 97 19 136/63 98 08/14/16 21:35 102 H 18 146/80 91 L 08/14/16 19:59 96 16 122/58 92 L 08/14/16 19:45 100 08/14/16 19:33 98 08/14/16 19:02 103 H 20 170/84 92 L 08/14/16 18:02 104 H 18 151/72 91 L 08/14/16 16:08 104 H 22 168/79 91 L 08/14/16 15:21 105 H 22 08/14/16 15:02 104 H 18 164/73 97 08/14/16 14:36 113 H 22 155/70 96 08/14/16 14:32 100 08/14/16 14:15 22 08/14/16 14:05 110 H 08/14/16 13:25 98.8 F 106 H 22 147/68 78 L GENERAL EXAM: Alert, active, comfortable in no apparent distress. HEAD: Normocephalic. EYES: Normal reaction of pupils, equal size. Some purulent conjunctivitis noted NOSE: Clear with pink turbinates. THROAT: No erythema or exudates. NECK: No masses, no JVD. CHEST: No chest wall deformity. LUNGS: Decreased air entry, scattered rhonchi and wheezes noted throughout. Bases diminished CVS: S1 and S2 normal with no audible mumurs, regular rhythm. ABDOMEN: No hepatosplenomegaly, normal bowel sounds, no guarding or rigidity. EXTREMITIES: +1-2 edema noted, pedal pulses palpable. SKIN: No rashes CENTRAL NERVOUS SYSTEM: No focal deficits, tone is normal in all 4 extremities. Results - Laboratory Findings CBC and BMP: 08/15/16 05:42 08/15/16 05:42 ABG ABG pH 7.29 (7.35-7.45) L 08/14/16 16:25 ABG pCO2 78 mmHg (35-45) H* 08/14/16 16:25 ABG pO2 62 mmHg (83-108) L 08/14/16 16:25 ABG O2 Saturation 87.0 % (94-97) L 08/14/16 16:25 PT/INR, D-dimer PT 10.7 sec (9.0-12.0) 08/14/16 14:20 INR 1.1 (<1.1) 08/14/16 14:20 D-Dimer 1.92 mg/L FEU (<0.60) H 08/14/16 14:20 Abnormal lab findings: Abnormal Labs 08/14/16 08/14/16 08/14/16 14:20 14:20 14:20 Plt Count 57 L D Neutrophils # (Manual) 8.1 H Lymphocytes # Lymphocytes # (Manual) 0.5 L D-Dimer ABG pH ABG pCO2 ABG pO2 ABG HCO3 ABG Total CO2 ABG O2 Saturation Sodium 117 L* Chloride 74 L* Carbon Dioxide 34 H BUN 21 H Creatinine Glucose 137 H POC Glucose (mg/dL) Calcium 8.3 L Phosphorus AST 1651 H ALT 681 H Total Creatine Kinase 342 H CK-MB (CK-2) 17.0 H* Total Protein Albumin Urine Protein Urine Ketones Urine Blood Hyaline Casts Urine Mucus 08/14/16 08/14/16 08/14/16 14:20 15:04 15:23 Plt Count Neutrophils # (Manual) Lymphocytes # Lymphocytes # (Manual) D-Dimer 1.92 H ABG pH 7.21 L ABG pCO2 <20 L* ABG pO2 49 L ABG HCO3 3 L* ABG Total CO2 3 L ABG O2 Saturation 78.0 L Sodium Chloride Carbon Dioxide BUN Creatinine Glucose POC Glucose (mg/dL) Calcium Phosphorus AST ALT Total Creatine Kinase CK-MB (CK-2) Total Protein Albumin Urine Protein 2+ H Urine Ketones Trace H Urine Blood Moderate H Hyaline Casts 12 H Urine Mucus Rare H 08/14/16 08/14/16 08/15/16 16:25 22:17 05:42 Plt Count 55 L Neutrophils # (Manual) Lymphocytes # 0.3 L Lymphocytes # (Manual) D-Dimer ABG pH 7.29 L ABG pCO2 78 H* ABG pO2 62 L ABG HCO3 36 H ABG Total CO2 38 H ABG O2 Saturation 87.0 L Sodium Chloride Carbon Dioxide BUN Creatinine Glucose POC Glucose (mg/dL) 189 H Calcium Phosphorus AST ALT Total Creatine Kinase CK-MB (CK-2) Total Protein Albumin Urine Protein Urine Ketones Urine Blood Hyaline Casts Urine Mucus 08/15/16 08/15/16 05:42 08:25 Plt Count Neutrophils # (Manual) Lymphocytes # Lymphocytes # (Manual) D-Dimer ABG pH ABG pCO2 ABG pO2 ABG HCO3 ABG Total CO2 ABG O2 Saturation Sodium 125 L Chloride 84 L Carbon Dioxide 36 H BUN Creatinine 0.55 L Glucose 124 H POC Glucose (mg/dL) 136 H Calcium 8.1 L Phosphorus 1.7 L AST 619 H ALT 439 H Total Creatine Kinase CK-MB (CK-2) Total Protein 6.0 L Albumin 3.3 L Urine Protein Urine Ketones Urine Blood Hyaline Casts Urine Mucus - Diagnostic Findings Chest x-ray: report reviewed, image reviewed CT scan - chest: report reviewed, image reviewed Assessment and Plan Plan: Assessment Acute hypoxic respiratory failure Acute exacerbation of COPD Bilateral lower extremity edema Elevated d-dimer Elevated BNP Hyponatremia hypochloremia Urinary tract infection Transaminitis Bilateral conjunctivitis Alcohol abuse Medical debility Plan Medications have been reviewed and will be continued as ordered. Continue with the current nebulizer treatments and IV antibiotics. Continue with antibiotic eyedrops. We will add scheduled IV steroids. Initiate and encourage incentive spirometer. BiPAP at night and when necessary throughout the day. Blood cultures pending. We will obtain sputum cultures. Repeat chest x-ray in the morning. Repeat labs in the morning. Replace electrolytes per protocol. We will continue to monitor labs/results and adjust treatment as necessary. I performed an examination of the patient and discussed their management with the nurse practitioner. I have reviewed the nurse practitioner's note and agree with the documented findings and plan of care.
[2016-08-15] MEDS: methylPREDNISolone SOD SUCCI 125 MG/2 ML VIAL IV SCH ×2 (13:00→17:42)
[2016-08-15] MEDS: THIAMINE 100 MG TAB PO SCH (13:46)
[2016-08-15 13:49] LABS: Glucose,Whole Blood 159 mg/dL (75-99)
[2016-08-15 14:29] LABS: Glucose,Whole Blood 174 mg/dL (75-99)
--- NOTE | 2016-08-15 16:24 | HP ---
CHIEF COMPLAINT: Lethargy, possible rhabdomyolysis, COPD, mental status changes and alcoholism. HISTORY OF PRESENT ILLNESS: This is another admission for this 60-year-old white male chronic alcoholic who smokes heavily. He was brought him in from his home, where he apparently was found passed out. He is not able to give any other history. He appears to be dehydrated. Review of systems is unobtainable. Past medical history, family history and personal and social histories reveal that he is not allergic to anything and he is on: 1. NovoLog mix 70/30, 30 units in the morning and 18 at night. 2. Cardura 1 mg at bedtime. 3. Protonix 40 mg once a day. 4. Lanoxin 0.125 once a day. 5. Xarelto 20 mg once a day. 6. Ventolin HFA. 7. Requip 0.25 at bedtime. 8. Aerospan 80 mcg 2 puffs twice a day. 9. Benazepril 40 mg once a day. 10. Metformin 1 g twice a day. 11. Simvastatin 80 once a day. 12. Vitamin D 50,000 units a month. 13. Aspirin. Remainder of his history is unremarkable. PHYSICAL EXAMINATION: VITAL SIGNS: Blood pressure 132/65 with a pulse of 102, respirations 14 and he is afebrile, pulse ox is 96. In general, appeared to be dehydrated and very lethargic. Skin demonstrated venous stasis dermatitis on the lower extremities. Head, ears, eyes, nose, mouth, and throat were normal and carotids seemed to be normal. Chest demonstrated very poor breath sounds and there were no rales or rhonchi. Cardiac demonstrated tachycardia with no murmurs or extra sounds. ABDOMEN: Soft without masses. EXTREMITIES: Normal. NEUROLOGICAL: He is lethargic. IMPRESSION: 1. Lethargy and mental status changes. 2. Chronic obstructive pulmonary disease. 3. Alcoholism. 4. Diabetes. 5. Rule out rhabdomyolysis. PLAN: 1. Bed rest. 2. IV fluids. 3. Rehydrate. 4. Watch for rhabdomyolysis with or without renal failure.
--- NOTE | 2016-08-15 16:33 | PN ---
CHIEF COMPLAINT: Respiratory failure, mental status changes, diabetes and dehydration. HISTORY OF PRESENT ILLNESS: This gentleman is doing well, although he still quite lethargic. He is waiting to be moved up to ICU. He is arousable and he denies pain. His chest is clear and breath sounds are very poor. CARDIAC: Sinus rhythm. ABDOMEN: Soft and there are no masses. IMPRESSION: 1. Mental status changes. 2. Chronic obstructive pulmonary disease. 3. Diabetes. 4. Alcoholism. 5. Dehydration. PLAN: Rehydration and continue to follow neurologically.
[2016-08-15 18:57] LABS: Glucose,Whole Blood 132 mg/dL (75-99)
[2016-08-15 21:07] LABS: Glucose,Whole Blood 158 mg/dL (75-99)
[2016-08-16] MEDS: methylPREDNISolone SOD SUCCI 125 MG/2 ML VIAL IV SCH ×5 (00:39→23:28)
[2016-08-16] MEDS: LORazepam 2 MG/ML SYRINGE IV PRN ×2 (03:59→21:58)
[2016-08-16 05:56] LABS: Basophils % (A) 0 %; CH 29.8; Eosinophils % (A) 0 %; HCT 40.7 % (39.0-53.0); HDW 2.52; HGB 13.1 gm/dL (13.0-17.5); Hypochromasia Slight; Luc # (Auto) 0.04; Luc % (Auto) 1; Lymphocytes # (A) 0.2 k/uL (1.0-4.8); Lymphocytes % (A) 4 %; MCH 31.1 pg (25.0-35.0); MCHC 32.2 g/dL (31.0-37.0); MCV 96.6 fL (80.0-100.0); Mean Platelet Volume 8.8; Monocytes # (A) 0.3 k/uL (0-1.0); Monocytes % (A) 5 %; Neutrophils % (A) 91 %; RBC 4.22 m/uL (4.30-5.90); RDW 13.7 % (11.5-15.5); WBC 6.6 k/uL (3.8-10.6)
[2016-08-16 06:10] LABS: ALT 304 U/L (21-72); AST 236 U/L (17-59); Alkaline Phosphatase 46 U/L (38-126); Anion Gap 8 mmol/L; Blood Urea Nitrogen 18 mg/dL (9-20); Calcium 8.3 mg/dL (8.4-10.2); Carbon Dioxide 36 mmol/L (22-30); Chloride 88 mmol/L (98-107); Glucose 140 mg/dL (74-99); Magnesium 2.3 mg/dL (1.6-2.3); Non-African American GFR(MDRD) >60 (>60 ml/min/1.73 sqM); Phosphorous 2.7 mg/dL (2.5-4.5); Potassium 4.5 mmol/L (3.5-5.1); Sodium 132 mmol/L (137-145); Total Bilirubin 0.5 mg/dL (0.2-1.3); Total Protein 5.6 g/dL (6.3-8.2)
[2016-08-16] MEDS: IPRATROPIUM-ALBUTEROL 3 ML NEB INHALATION PRN ×4 (07:56→19:31)
[2016-08-16] MEDS: BUDESONIDE 0.5 MG/2 ML NEBU INHALATION SCH ×2 (07:56→19:31)
[2016-08-16 08:03] LABS: Glucose,Whole Blood 147 mg/dL (75-99)
[2016-08-16] MEDS: INSULIN LISPRO (humaLOG) 300 UNIT/3 ML VIAL SQ SCH ×4 (08:06→21:50)
[2016-08-16] MEDS: PANTOPRAZOLE 40 MG/10 ML VIAL IV SCH (08:08)
[2016-08-16] MEDS: LISINOPRIL 20 MG TAB PO SCH (08:09)
[2016-08-16] MEDS: DIGOXIN 125 MCG TAB PO SCH (08:09)
--- NOTE | 2016-08-16 08:14 | XR ---
EXAMINATION TYPE: XR chest 1V portable DATE OF EXAM: 08/16/2016 5:55 AM CLINICAL HISTORY: Difficulty breathing and respiratory failure progress study. TECHNIQUE: Single AP portable upright view of the chest is obtained. COMPARISON: Chest x-ray from one day earlier FINDINGS: There is stable mild cardiomegaly with atherosclerotic thoracic aorta. There is chronic pa renchymal change with increasing left basilar opacity felt to reflect developing atelectasis and/or i nfiltrate. Improved aeration right lung base is noted. Cannot exclude new small left pleural effusion . No pneumothorax is seen bilaterally. Osseous structures are intact. Patient was rotated to the left on prior study. IMPRESSION: Improving right medial basilar atelectasis and/or infiltrate noted. Suspect developing le ft basilar atelectasis and/or infiltrate however. Progress study advised.
[2016-08-16] MEDS: ENOXAPARIN 40 MG/0.4 ML SYRINGE SQ SCH (08:30)
[2016-08-16] MEDS: TOBRAMYCIN 0.3% OPHTH DROPS 5 ML BTL BOTH EYES SCH ×4 (08:30→21:51)
--- NOTE | 2016-08-16 09:40 | P.PN ---
Subjective A 61-year-old male unkempt in appearance sitting up in the ICU being followed by pulmonology for shortness of breath in a patient who has a history of COPD with active nicotine dependency. The oxygen is being titrated up to keep the sats greater than 90 . Patient states he's living alone is requesting ECF placement for subacute rehab. Patient states he does have a home aid does see the patient every 3 days found the patient sitting up in a wheelchair covered in stool patient stated he was just too weak to ambulate on his own. Patient does state that he drinks beer every day 3-4. Did note the AST is elevated to 36 with an ALT of 304 Patient's d-dimer was elevated patient did have a CAT scan of the chest which showed no evidence of a pulmonary emboli did suggest possible congestive heart failure echocardiogram done July 2015 shows left ventricular systolic function normal EF between 60 and 65% with mild pulmonary hypertension. Objective - Vital Signs Vital signs: Vital Signs Temp 98.3 F 08/16/16 08:00 Pulse 138 H 08/16/16 09:00 Resp 17 08/16/16 09:00 BP 123/69 08/16/16 09:00 Pulse Ox 95 08/16/16 09:00 Intake & Output 08/15/16 08/16/16 08/16/16 18:59 06:59 18:59 Intake Total 50 120 Output Total 1610 640 85 Balance -1560 -520 -85 Weight 104.3 kg Intake: Intake, IV Titration 50 Amount cefTRIAXone 1,000 mg In 50 Sodium Chloride 0.9% 50 ml @ 100 mls/hr IVPB Q24H [facility] Rx#:[id number] Oral 120 Output: Urine 1610 640 85 Other: Voiding Method Indwelling Catheter Indwelling Catheter Indwelling Catheter # Bowel Movements 1 - Exam GENERAL APPEARANCE: 61-year-old male looking older than stated age unkemp sitting up in bedt patient is , oriented to person and place and event , in no acute distress. VITAL SIGNS reviewed : HEENT: Head is normocephalic and atraumatic. Pupils are equal and reactive. The nares are patent. Oropharynx is clear without lesions. NECK: Supple without lymphadenopathy. Traches midline. HEART: S1, S2. irregular monitor atrial fibrillation LUNGS: coarse rhonchi upper airway lower lobes diminished bilaterally at the bases. ABDOMEN: Soft, nontender, nondistended with good bowel sounds. No peritoneal signs. No palpable organomegaly or masses. indwelling Boykin catheter in place EXTREMITIES: Normal skin color and turgor. bilateral chronic venous stasis plus edema noted Radial pedal pulses are 2/4 bilaterally. NEUROLOGICAL: No focal deficits. Strength and sensation are grossly intact. - Labs CBC & Chem 7: 08/16/16 05:23 08/16/16 05:23 Labs: Abnormal Lab Results - Last 24 Hours (Table) 08/15/16 08/15/16 08/15/16 Range/Units 13:48 14:28 18:55 RBC (4.30-5.90) m/uL Plt Count (150-450) k/uL Lymphocytes # (1.0-4.8) k/uL Sodium (137-145) mmol/L Chloride (98-107) mmol/L Carbon Dioxide (22-30) mmol/L Creatinine (0.66-1.25) mg/dL Glucose (74-99) mg/dL POC Glucose (mg/dL) 159 H 174 H 132 H (75-99) mg/dL Calcium (8.4-10.2) mg/dL AST (17-59) U/L ALT (21-72) U/L Total Protein (6.3-8.2) g/dL Albumin (3.5-5.0) g/dL 08/15/16 08/16/16 08/16/16 Range/Units 21:05 05:23 05:23 RBC 4.22 L (4.30-5.90) m/uL Plt Count 77 L (150-450) k/uL Lymphocytes # 0.2 L (1.0-4.8) k/uL Sodium 132 L (137-145) mmol/L Chloride 88 L (98-107) mmol/L Carbon Dioxide 36 H (22-30) mmol/L Creatinine 0.60 L (0.66-1.25) mg/dL Glucose 140 H (74-99) mg/dL POC Glucose (mg/dL) 158 H (75-99) mg/dL Calcium 8.3 L (8.4-10.2) mg/dL AST 236 H (17-59) U/L ALT 304 H (21-72) U/L Total Protein 5.6 L (6.3-8.2) g/dL Albumin 3.2 L (3.5-5.0) g/dL 08/16/16 Range/Units 08:01 RBC (4.30-5.90) m/uL Plt Count (150-450) k/uL Lymphocytes # (1.0-4.8) k/uL Sodium (137-145) mmol/L Chloride (98-107) mmol/L Carbon Dioxide (22-30) mmol/L Creatinine (0.66-1.25) mg/dL Glucose (74-99) mg/dL POC Glucose (mg/dL) 147 H (75-99) mg/dL Calcium (8.4-10.2) mg/dL AST (17-59) U/L ALT (21-72) U/L Total Protein (6.3-8.2) g/dL Albumin (3.5-5.0) g/dL Microbiology - Last 24 Hours (Table) 08/14/16 14:20 Blood Culture - Preliminary Blood No Growth after 24 hours Assessment and Plan Plan: Impression Present on admission acute hypoxic respiratory failure suspect due to an acute exacerbation of COPD Present on admission elevated d-dimer with a CAT scan of the chest showing no evidence of a pulmonary emboli Chronic physical medical debility Elevated trnasaminitis present on admission Chronic alcoholism daily consumption Significant nicotine dependency greater than a 40 year history 1 pack a day currently active Present on admission bilateral conjunctivitis Present on admission elevated BNP Present on admission urinary tract infection Present on admission electrolyte abnormality hypo-natremia hypochloremia Chronic persistent atrial fibrillation controlled ventricular response Present on admission mild protein calorie malnutrition suspect due to poor caloric intake due to chronic illness Pulmonary cachectic Type 2 diabetes insulin requiring hemoglobin A1c 5.7 Plan Continue ICU management per the jackspooler Respiratory treatments as ordered Attempt to titrate the O2 down DVT and GI prophylaxis Resume home meds as appropriate Monitor for impending DTs using ciwa protocol Ativan PT OT eval retail business development manager to pursue the discharge plan patient would benefit from subacute rehab Monitor blood sugars while on steroids Further recommendations pending Repeat the labs in the morning The above dictated assessment and findings were discussed with dr dobbins Impression and the plan of care have been dictated as directed. Chichi Santizo nurse practitioner acting as a scribe for dr dobbins.
--- NOTE | 2016-08-16 11:06 | P.PN ---
Subjective This is a 61-year-old male patient being evaluated and examined today in the intensive care unit this patient came into the emergency room with shortness of breath that had been increasing in severity over the last few days. Patient has had a nonproductive cough. Patient is also an active smoker and has a long- standing history of COPD. He also has a long-standing history of alcohol abuse. According to the chart the patient was found by a home health care worker that usually sees him every 3 days or so and he was covered in stool and urine and was in a wheelchair. The patient has been too weak to ambulate on his own and then ordering delivery food to be brought directly to him. In the ER the patient had EKG which showed sinus tachycardia. He did have a 1 L bolus of normal saline. He did have an elevated BNP as well as some conjunctivitis and was given eyedrops. The patient was started on BiPAP due to being hypoxic and shortness of breath. There is some controversy on his ABG results on whether they are accurate or not during the evaluation in the emergency room. Patient's d-dimer also was elevated and had a CT A of his chest to rule out pulmonary embolism. The CTA was negative for PE and showed the possibility of some congestive heart failure. The patient was admitted with bacterial conjunctivitis, acute respiratory failure, acute exacerbation of COPD, alcohol abuse, bilateral lower extremity edema, elevated d-dimer, elevated BNP, hyponatremia hypochloremia, debility and weakness, UTI, transaminitis, and diarrhea. On examination the patient is currently on 10 L high flow nasal cannula. Patient appears more awake and alert today than previously. Patient states his breathing is somewhat improved today however he feels the is starting to shake due to withdrawing from alcohol. Patient is on CIWA protocol. BiPAP was used overnight and the patient responded well. Objective - Vital Signs Vital signs: Vital Signs Temp 98.3 F 08/16/16 08:00 Pulse 138 H 08/16/16 09:00 Resp 08/16/16 09:00 BP 123/69 08/16/16 09:00 Pulse Ox 95 08/16/16 09:00 Intake & Output 08/15/16 08/16/16 08/16/16 18:59 06:59 18:59 Intake Total 50 120 Output Total 1610 640 85 Balance -1560 -520 -85 Weight 104.3 kg Intake: Intake, IV Titration 50 Amount cefTRIAXone 1,000 mg In 50 Sodium Chloride 0.9% 50 ml @ 100 mls/hr IVPB Q24H [facility] Rx#:[id number] Oral 120 Output: Urine 1610 640 85 Other: Voiding Method Indwelling Catheter Indwelling Catheter Indwelling Catheter # Bowel Movements 1 - Exam GENERAL EXAM: Alert, active, comfortable in no apparent distress. HEAD: Normocephalic. EYES: Normal reaction of pupils, equal size. Some purulent conjunctivitis noted NOSE: Clear with pink turbinates. THROAT: No erythema or exudates. NECK: No masses, no JVD. CHEST: No chest wall deformity. LUNGS: Decreased air entry, scattered rhonchi and wheezes noted throughout. Bases diminished CVS: S1 and S2 normal with no audible mumurs, regular rhythm. ABDOMEN: No hepatosplenomegaly, normal bowel sounds, no guarding or rigidity. EXTREMITIES: +1-2 edema noted, pedal pulses palpable. SKIN: No rashes CENTRAL NERVOUS SYSTEM: No focal deficits, tone is normal in all 4 extremities. - Labs CBC & Chem 7: 08/16/16 05:23 08/16/16 05:23 Labs: Abnormal Lab Results - Last 24 Hours (Table) 08/15/16 08/15/16 08/15/16 Range/Units 13:48 14:28 18:55 RBC (4.30-5.90) m/uL Plt Count (150-450) k/uL Lymphocytes # (1.0-4.8) k/uL Sodium (137-145) mmol/L Chloride (98-107) mmol/L Carbon Dioxide (22-30) mmol/L Creatinine (0.66-1.25) mg/dL Glucose (74-99) mg/dL POC Glucose (mg/dL) 159 H 174 H 132 H (75-99) mg/dL Calcium (8.4-10.2) mg/dL AST (17-59) U/L ALT (21-72) U/L Total Protein (6.3-8.2) g/dL Albumin (3.5-5.0) g/dL 08/15/16 08/16/16 08/16/16 Range/Units 21:05 05:23 05:23 RBC 4.22 L (4.30-5.90) m/uL Plt Count 77 L (150-450) k/uL Lymphocytes # 0.2 L (1.0-4.8) k/uL Sodium 132 L (137-145) mmol/L Chloride 88 L (98-107) mmol/L Carbon Dioxide 36 H (22-30) mmol/L Creatinine 0.60 L (0.66-1.25) mg/dL Glucose 140 H (74-99) mg/dL POC Glucose (mg/dL) 158 H (75-99) mg/dL Calcium 8.3 L (8.4-10.2) mg/dL AST 236 H (17-59) U/L ALT 304 H (21-72) U/L Total Protein 5.6 L (6.3-8.2) g/dL Albumin 3.2 L (3.5-5.0) g/dL 08/16/16 Range/Units 08:01 RBC (4.30-5.90) m/uL Plt Count (150-450) k/uL Lymphocytes # (1.0-4.8) k/uL Sodium (137-145) mmol/L Chloride (98-107) mmol/L Carbon Dioxide (22-30) mmol/L Creatinine (0.66-1.25) mg/dL Glucose (74-99) mg/dL POC Glucose (mg/dL) 147 H (75-99) mg/dL Calcium (8.4-10.2) mg/dL AST (17-59) U/L ALT (21-72) U/L Total Protein (6.3-8.2) g/dL Albumin (3.5-5.0) g/dL Microbiology - Last 24 Hours (Table) 08/14/16 14:20 Blood Culture - Preliminary Blood No Growth after 24 hours Assessment and Plan Plan: Assessment Acute hypoxic respiratory failure Acute exacerbation of COPD Bilateral lower extremity edema Elevated d-dimer Elevated BNP Hyponatremia hypochloremia Urinary tract infection Transaminitis Bilateral conjunctivitis Alcohol abuse Medical debility Impending DTs due to alcohol withdrawal. Plan Medications have been reviewed and will be continued as ordered. Continue with the current nebulizer treatments and IV antibiotics. Continue with antibiotic eyedrops. Continue with scheduled IV steroids. Initiate and encourage incentive spirometer. BiPAP at night and when necessary throughout the day. Blood cultures pending. We will obtain sputum cultures. Repeat chest x-ray in the morning. Repeat labs in the morning. CIWA protocol as ordered. Replace electrolytes per protocol. We will continue to monitor labs/results and adjust treatment as necessary. I performed an examination of the patient and discussed their management with the nurse practitioner. I have reviewed the nurse practitioner's note and agree with the documented findings and plan of care.
[2016-08-16 12:22] LABS: Glucose,Whole Blood 306 mg/dL (75-99)
--- NOTE | 2016-08-16 12:55 | ECHOF ---
Referral Reason:lvh MEASUREMENTS -------- HEIGHT: 180.3 cm WEIGHT: 103.9 kg BP: 92/60 RVIDd: 3.1 cm (< 3.3) IVSd: 1.5 cm (0.6 - 1.1) LVIDd: 4.3 cm (3.9 - 5.3) LVPWd: 1.5 cm (0.6 - 1.1) IVSs: 1.7 cm LVIDs: 3.0 cm LVPWs: 1.8 cm LA Diam: 3.6 cm (2.7 - 3.8) LAESV Index (A-L): 17.40 ml/m Ao Diam: 3.7 cm (2.0 - 3.7) AV Cusp: 2.4 cm (1.5 - 2.6) MV EXCURSION: 21.866 mm (> 18.000) MV EF SLOPE: 74 mm/s (70 - 150) EPSS: 1.1 cm RAP: 5.00 mmHg RVSP: 36.87 mmHg FINDINGS -------- Atrial fibrillation. This was a technically difficult study with suboptimal views. The left ventricular size is normal. There is moderate concentric left ventricular hypertrophy. Overall left ventricular systolic function is low-normal with, an EF between 50 - 55 %. The right ventricle is normal in size. Normal LA size by volume 22+/-6 ml/m2. The right atrium was not well visualized. 1.5mg of Definity was utilized for enhancement of images There is mild aortic valve sclerosis. Mild mitral annular calcification present. There is trace to mild mitral regurgitation. Mild tricuspid regurgitation present. There is mild pulmonary hypertension. The right ventricular systolic pressure, as measured by Doppler, is 36.87mmHg. The pulmonic valve was not well visualized. The aortic root is dilated measuring 3.7cm. The inferior vena cava is mildly dilated. The pericardium is normal. CONCLUSIONS -------- 1. Atrial fibrillation. 2. There is mild aortic valve sclerosis. 3. Mild mitral annular calcification present. 4. There is trace to mild mitral regurgitation. 5. Mild tricuspid regurgitation present. 6. There is mild pulmonary hypertension. 7. The right ventricular systolic pressure, as measured by Doppler, is 36.87mmHg. 8. The pulmonic valve was not well visualized. 9. The aortic root is dilated measuring 3.7cm. 10. The inferior vena cava is mildly dilated. 11. The pericardium is normal. 12. This was a technically difficult study with suboptimal views. 13. The left ventricular size is normal. 14. There is moderate concentric left ventricular hypertrophy. 15. Overall left ventricular systolic function is low-normal with, an EF between 50 - 55 %. 16. The right ventricle is normal in size. 17. Normal LA size by volume 22+/-6 ml/m2. 18. The right atrium was not well visualized. 19. 1.5mg of Definity was utilized for enhancement of images [employer] ENGINEER: Noemy Stallings RDCS
[2016-08-16] MEDS: THIAMINE 100 MG TAB PO SCH (13:40)
--- NOTE | 2016-08-16 17:26 | PN ---
DATE OF SERVICE: 08/16/2016 CHIEF COMPLAINT: Mental status changes, pneumonitis, COPD and alcoholism. HISTORY OF PRESENT ILLNESS: This gentleman is doing well. He is awake and alert and he is not having any DTs. He is denying any pain. PHYSICAL EXAMINATION: Vital signs are normal. HEENT: Normal. Chest demonstrates very poor breath sounds throughout with scattered rales and wheezing. CARDIAC: Normal. ABDOMEN: Protuberant, soft. EXTREMITIES: Normal with good peripheral perfusion. IMPRESSION: 1. Mental status changes. 2. Exacerbation of chronic obstructive pulmonary disease. 3. Alcoholism. PLAN: Progress activity and diet and work on a discharge plan, which will probably be to a group home, since he is unable to walk due to leg weakness secondary to disuse.
[2016-08-16 17:33] LABS: Glucose,Whole Blood 185 mg/dL (75-99)
[2016-08-16] MEDS: SODIUM CHLORIDE 0.9% 1,000 ML IV SCH (17:38)
[2016-08-16] MEDS ORDERED: MAG HYDROX/AL HYDROX/SIMETH 30 ML CUP ONE (18:28)
[2016-08-16 18:32] LABS: Amorphous Sediment,Urine Rare /hpf; Appearance,Urine Clear (Clear); Bilirubin,Urine 1+ (Negative); Glucose,Urine (UA) Negative (Negative); Ketones,Urine Negative (Negative); Leukocyte Esterase,Urine Negative (Negative); Mucus,Urine Moderate /hpf; Nitrite,Urine Negative (Negative); PH, Urine 6.5 (5.0-8.0); Particle Count 4753; Protein,Urine 1+ (Negative); RBC,Urine 1 /hpf (0-5); Specific Gravity,Urine 1.022 (1.001-1.035); Squamous Epithelial Cell,Urine 1 /hpf (0-4); UA Billing (MACRO vs. MICRO) MICRO; Urobilinogen,Urine <2.0 mg/dL (<2.0); WBC,Urine 6 /hpf (0-5)
[2016-08-16 21:14] LABS: Glucose,Whole Blood 170 mg/dL (75-99)
[2016-08-16] MEDS: ATORVASTATIN 40 MG TAB PO SCH (21:51)
[2016-08-16] MEDS: ACETAMINOPHEN TAB 325 MG TAB PO PRN (23:27)
[2016-08-17] MEDS: LORazepam 2 MG/ML SYRINGE IV PRN ×4 (05:02→21:08)
[2016-08-17] MEDS: methylPREDNISolone SOD SUCCI 125 MG/2 ML VIAL IV SCH ×3 (05:02→18:23)
[2016-08-17 05:23] LABS: Basophils % (A) 0 %; CH 29.5; CHCM 29.5; Eosinophils % (A) 0 %; HCT 41.1 % (39.0-53.0); HDW 2.34; HGB 12.4 gm/dL (13.0-17.5); Hypochromasia Marked; Luc # (Auto) 0.08; Luc % (Auto) 1; Lymphocytes # (A) 0.2 k/uL (1.0-4.8); Lymphocytes % (A) 3 %; MCH 30.3 pg (25.0-35.0); MCHC 30.2 g/dL (31.0-37.0); MCV 100.4 fL (80.0-100.0); Macrocytosis Slight; Mean Platelet Volume 9.3; Monocytes # (A) 0.4 k/uL (0-1.0); Monocytes % (A) 5 %; Neutrophils # (A) 6.6 k/uL (1.3-7.7); Neutrophils % (A) 91 %; RBC 4.09 m/uL (4.30-5.90); RDW 13.7 % (11.5-15.5); WBC 7.3 k/uL (3.8-10.6); WBC (Perox) 8.17
[2016-08-17 05:34] LABS: ALT 210 U/L (21-72); AST 85 U/L (17-59); Alkaline Phosphatase 39 U/L (38-126); Anion Gap 6 mmol/L; Blood Urea Nitrogen 26 mg/dL (9-20); Calcium 8.2 mg/dL (8.4-10.2); Carbon Dioxide 35 mmol/L (22-30); Chloride 92 mmol/L (98-107); Glucose 221 mg/dL (74-99); Magnesium 2.2 mg/dL (1.6-2.3); Non-African American GFR(MDRD) >60 (>60 ml/min/1.73 sqM); Phosphorous 2.1 mg/dL (2.5-4.5); Potassium 5.2 mmol/L (3.5-5.1); Sodium 133 mmol/L (137-145); Total Bilirubin 0.4 mg/dL (0.2-1.3); Total Protein 5.4 g/dL (6.3-8.2)
--- NOTE | 2016-08-17 08:08 | XR ---
EXAMINATION TYPE: XR chest 1V portable DATE OF EXAM: 08/17/2016 6:40 AM Comparison: 08/16/2016 Clinical History: 61 year-old male shortness of breath Findings: Heart remains upper limits of normal in size. Mild diffuse interstitial and vascular prominence simil ar to slightly increased. Patchy right basilar opacity slightly increased. Continued small left pleur al effusion with adjacent opacity. Old healed right posterior fracture deformity. Impression: 1. Correlate for developing CHF with pulmonary vascular congestion. 2. Increased patchy right basilar atelectasis and/or consolidation. 3. Continued small left pleural effusion with adjacent atelectasis and/or consolidation.
[2016-08-17] MEDS: INSULIN LISPRO (humaLOG) 300 UNIT/3 ML VIAL SQ SCH ×4 (08:17→20:50)
[2016-08-17 08:19] LABS: Glucose,Whole Blood 266 mg/dL (75-99)
[2016-08-17] MEDS: ENOXAPARIN 40 MG/0.4 ML SYRINGE SQ SCH (08:24)
[2016-08-17] MEDS: PANTOPRAZOLE 40 MG TABLET PO SCH (08:24)
[2016-08-17] MEDS: TOBRAMYCIN 0.3% OPHTH DROPS 5 ML BTL BOTH EYES SCH ×4 (08:24→21:08)
[2016-08-17] MEDS: DIGOXIN 125 MCG TAB PO SCH (08:24)
[2016-08-17] MEDS: LISINOPRIL 20 MG TAB PO SCH (08:24)
[2016-08-17] MEDS: SODIUM CHLORIDE 0.9% 1,000 ML IV SCH (08:37)
[2016-08-17] MEDS: IPRATROPIUM-ALBUTEROL 3 ML NEB INHALATION PRN ×4 (08:54→20:40)
[2016-08-17] MEDS: BUDESONIDE 0.5 MG/2 ML NEBU INHALATION SCH ×2 (08:54→20:40)
[2016-08-17] MEDS: NICOTINE 21MG/24HR PATCH TRANSDERM SCH (08:56)
[2016-08-17] MEDS ORDERED: FUROSEMIDE 10 MG/ML 4 ML VIAL IV STA (10:10)
[2016-08-17] MEDS: THIAMINE 100 MG TAB PO SCH (11:32)
--- NOTE | 2016-08-17 11:36 | P.PN ---
Subjective This is a 61-year-old male patient being evaluated and examined today in the intensive care unit this patient came into the emergency room with shortness of breath that had been increasing in severity over the last few days. Patient has had a nonproductive cough. Patient is also an active smoker and has a long- standing history of COPD. He also has a long-standing history of alcohol abuse. According to the chart the patient was found by a home health care worker that usually sees him every 3 days or so and he was covered in stool and urine and was in a wheelchair. The patient has been too weak to ambulate on his own and then ordering delivery food to be brought directly to him. In the ER the patient had EKG which showed sinus tachycardia. He did have a 1 L bolus of normal saline. He did have an elevated BNP as well as some conjunctivitis and was given eyedrops. The patient was started on BiPAP due to being hypoxic and shortness of breath. There is some controversy on his ABG results on whether they are accurate or not during the evaluation in the emergency room. Patient's d-dimer also was elevated and had a CT A of his chest to rule out pulmonary embolism. The CTA was negative for PE and showed the possibility of some congestive heart failure. The patient was admitted with bacterial conjunctivitis, acute respiratory failure, acute exacerbation of COPD, alcohol abuse, bilateral lower extremity edema, elevated d-dimer, elevated BNP, hyponatremia hypochloremia, debility and weakness, UTI, transaminitis, and diarrhea. On examination the patient is currently on 6 L high flow nasal cannula. Patient appears more agitated and has some intermittent confusion. Patient's oxygen demand have decreased from previous day however the patient appears short winded and gets short of breath with extensive conversation. Patient has a cough however its nonproductive. Patient continues to shake due to withdrawing from alcohol. Patient is on CIWA protocol. BiPAP was used overnight and the patient responded well. The patient's heart rate was observed during examination to have significant ectopy and the heart rate bounces from the 120s to the 170s. Cardiology is on consult and has been made aware. Patient also having marginal urine output. Blood pressures systolically 100-110. Current chest x-ray has been reviewed and reveals possible developing CHF and pulmonary venous congestion. Increased right basilar atelectasis and small left effusion. Objective - Vital Signs Vital signs: Vital Signs Temp 98.0 F 08/17/16 08:00 Pulse 124 H 08/17/16 11:00 Resp 24 08/17/16 11:00 BP 112/61 08/17/16 11:00 Pulse Ox 91 L 08/17/16 11:00 Intake & Output 08/16/16 08/17/16 08/17/16 18:59 06:59 18:59 Intake Total 535 1620 375 Output Total 325 385 270 Balance 210 1235 105 Weight 104.3 kg 107.1 kg Intake: Intake, IV Titration 175 900 375 Amount Sodium Chloride 0.9% 1, 75 900 375 000 ml @ 75 mls/hr IV . [id number] [facility] Rx#:[id number] cefTRIAXone 1,000 mg In 100 Sodium Chloride 0.9% 50 ml @ 100 mls/hr IVPB Q24H [facility] Rx#:[id number] Oral 360 720 Output: Urine 325 385 270 Other: Voiding Method Indwelling Catheter Indwelling Catheter Indwelling Catheter - Exam GENERAL EXAM: Alert, active, comfortable in no apparent distress. HEAD: Normocephalic. EYES: Normal reaction of pupils, equal size. Some purulent conjunctivitis noted NOSE: Clear with pink turbinates. THROAT: No erythema or exudates. NECK: No masses, no JVD. CHEST: No chest wall deformity. LUNGS: Decreased air entry, scattered rhonchi and wheezes noted throughout. Bases diminished CVS: S1 and S2 normal with no audible mumurs, regular rhythm. ABDOMEN: No hepatosplenomegaly, normal bowel sounds, no guarding or rigidity. EXTREMITIES: +1-2 edema noted, pedal pulses palpable. SKIN: No rashes CENTRAL NERVOUS SYSTEM: No focal deficits, tone is normal in all 4 extremities. - Labs CBC & Chem 7: 08/17/16 04:13 08/17/16 04:13 Labs: Abnormal Lab Results - Last 24 Hours (Table) 08/16/16 08/16/16 08/16/16 Range/Units 12:18 17:20 17:31 RBC (4.30-5.90) m/uL Hgb (13.0-17.5) gm/dL MCV (80.0-100.0) fL MCHC (31.0-37.0) g/dL Plt Count (150-450) k/uL Lymphocytes # (1.0-4.8) k/uL Sodium (137-145) mmol/L Potassium (3.5-5.1) mmol/L Chloride (98-107) mmol/L Carbon Dioxide (22-30) mmol/L BUN (9-20) mg/dL Creatinine (0.66-1.25) mg/dL Glucose (74-99) mg/dL POC Glucose (mg/dL) 306 H 185 H (75-99) mg/dL Calcium (8.4-10.2) mg/dL Phosphorus (2.5-4.5) mg/dL AST (17-59) U/L ALT (21-72) U/L Total Protein (6.3-8.2) g/dL Albumin (3.5-5.0) g/dL Urine Protein 1+ H (Negative) Urine Bilirubin 1+ H (Negative) Urine WBC 6 H (0-5) /hpf Amorphous Sediment Rare H (None) /hpf Hyaline Casts 32 H (0-2) /lpf Urine Mucus Moderate H (None) /hpf 08/16/16 08/17/16 08/17/16 Range/Units 21:12 04:13 04:13 RBC 4.09 L (4.30-5.90) m/uL Hgb 12.4 L (13.0-17.5) gm/dL MCV 100.4 H (80.0-100.0) fL MCHC 30.2 L (31.0-37.0) g/dL Plt Count 88 L (150-450) k/uL Lymphocytes # 0.2 L (1.0-4.8) k/uL Sodium 133 L (137-145) mmol/L Potassium 5.2 H (3.5-5.1) mmol/L Chloride 92 L (98-107) mmol/L Carbon Dioxide 35 H (22-30) mmol/L BUN 26 H (9-20) mg/dL Creatinine 0.60 L (0.66-1.25) mg/dL Glucose 221 H (74-99) mg/dL POC Glucose (mg/dL) 170 H (75-99) mg/dL Calcium 8.2 L (8.4-10.2) mg/dL Phosphorus 2.1 L (2.5-4.5) mg/dL AST 85 H (17-59) U/L ALT 210 H (21-72) U/L Total Protein 5.4 L (6.3-8.2) g/dL Albumin 2.9 L (3.5-5.0) g/dL Urine Protein (Negative) Urine Bilirubin (Negative) Urine WBC (0-5) /hpf Amorphous Sediment (None) /hpf Hyaline Casts (0-2) /lpf Urine Mucus (None) /hpf 08/17/16 Range/Units 08:17 RBC (4.30-5.90) m/uL Hgb (13.0-17.5) gm/dL MCV (80.0-100.0) fL MCHC (31.0-37.0) g/dL Plt Count (150-450) k/uL Lymphocytes # (1.0-4.8) k/uL Sodium (137-145) mmol/L Potassium (3.5-5.1) mmol/L Chloride (98-107) mmol/L Carbon Dioxide (22-30) mmol/L BUN (9-20) mg/dL Creatinine (0.66-1.25) mg/dL Glucose (74-99) mg/dL POC Glucose (mg/dL) 266 H (75-99) mg/dL Calcium (8.4-10.2) mg/dL Phosphorus (2.5-4.5) mg/dL AST (17-59) U/L ALT (21-72) U/L Total Protein (6.3-8.2) g/dL Albumin (3.5-5.0) g/dL Urine Protein (Negative) Urine Bilirubin (Negative) Urine WBC (0-5) /hpf Amorphous Sediment (None) /hpf Hyaline Casts (0-2) /lpf Urine Mucus (None) /hpf Microbiology - Last 24 Hours (Table) 08/16/16 09:25 Gram Stain - Final Sputum Sputum Culture - Final 08/16/16 17:20 Urine Culture - Preliminary Urine,Catheterized 08/14/16 14:20 Blood Culture - Preliminary Blood No Growth after 48 hours Assessment and Plan Plan: Assessment Acute hypoxic respiratory failure Acute exacerbation of COPD Bilateral lower extremity edema Elevated d-dimer Elevated BNP Hyponatremia hypochloremia Urinary tract infection Transaminitis Bilateral conjunctivitis Alcohol abuse Medical debility Impending DTs due to alcohol withdrawal. Plan Medications have been reviewed and will be continued as ordered. Patient will receive a 1 time dose of Lasix 40 mg. We'll closely monitor I's snd O's. Continue with the current nebulizer treatments and IV antibiotics. Continue with antibiotic eyedrops. Continue with scheduled IV steroids. Initiate and encourage incentive spirometer. BiPAP at night and when necessary throughout the day. Blood cultures pending. We will obtain sputum cultures. Repeat chest x-ray in the morning. Repeat labs in the morning. CIWA protocol as ordered. Replace electrolytes per protocol. Cardiology to see patient and is aware of the recent heart rate and blood pressures. We will continue to monitor labs/results and adjust treatment as necessary. I performed an examination of the patient and discussed their management with the nurse practitioner. I have reviewed the nurse practitioner's note and agree with the documented findings and plan of care.
--- NOTE | 2016-08-17 12:06 | PN ---
DATE OF SERVICE: 08/17/2016 CHIEF COMPLAINT: Mental status changes, COPD, alcoholism. HISTORY OF PRESENT ILLNESS: This patient is doing reasonably well. He is now fully awake, alert and oriented without any neurologic deficits. His heart rate shoots up into the 130s or 140s occasionally with atrial fibrillation. He has had no chest pain, shortness of breath, abdominal pain, etc. PHYSICAL EXAM: Vital signs are normal. He is in atrial fibrillation with a rate of 90. Hydration is improved. Face is less flushed. Chest demonstrates rales bilaterally still, but he is generally clearing up. There are no rhonchi at the present time. Cardiac exam is unchanged. ABDOMEN: Soft, nontender. IMPRESSION: 1. Mental status changes. 2. Exacerbation of chronic obstructive pulmonary disease. 3. Congestive heart failure. 4. Pneumonitis. 5. Alcoholism. PLAN: Probably move to telemetry bed today. Increase activity and physical therapy. At the present time, he is unable to walk and bear weight. We are also working on discharge to a fpc sometime next week.
[2016-08-17 12:15] LABS: Glucose,Whole Blood 207 mg/dL (75-99)
--- NOTE | 2016-08-17 12:29 | P.PN ---
Subjective 61-year-old male being seen in the intensive care unit this morning is sitting up feeding self more awake more alert. Patient states breathing feels improved. Oxygen is being titrated down currently on 6 L high flow. Patient did use the BiPAP during the night. Patient does have a history of chronic alcoholism daily consumption currently is on CIWA protocol. Did note the patient does have episodes with any exertion the heart rate goes up to 140s to 170s. Patient currently is denying chest pain. Patient has chronic atrial fibrillation. Objective - Vital Signs Vital signs: Vital Signs Temp 98.0 F 08/17/16 08:00 Pulse 98 08/17/16 12:14 Resp 24 08/17/16 11:00 BP 112/61 08/17/16 11:00 Pulse Ox 91 L 08/17/16 11:00 Intake & Output 08/16/16 08/17/16 08/17/16 18:59 06:59 18:59 Intake Total 535 1620 375 Output Total 325 385 270 Balance 210 1235 105 Weight 104.3 kg 107.1 kg Intake: Intake, IV Titration 175 900 375 Amount Sodium Chloride 0.9% 1, 75 900 375 000 ml @ 75 mls/hr IV . [id number] [facility] Rx#:[id number] cefTRIAXone 1,000 mg In 100 Sodium Chloride 0.9% 50 ml @ 100 mls/hr IVPB Q24H [facility] Rx#:[id number] Oral 360 720 Output: Urine 325 385 270 Other: Voiding Method Indwelling Catheter Indwelling Catheter Indwelling Catheter - Exam GENERAL APPEARANCE: 61-year-old male looking older than stated age unkemp sitting up in bedt patient is , oriented to person and place and event , in no acute distress. Sitting up feeding self. Did note with exertion the heart rate goes up to 140s 150s denying heart palpitations VITAL SIGNS reviewed : HEENT: Head is normocephalic and atraumatic. Pupils are equal and reactive. The nares are patent. Oropharynx is clear without lesions. NECK: Supple without lymphadenopathy. Traches midline. HEART: S1, S2. irregular monitor atrial fibrillation variable ventricular response no murmur noted LUNGS: coarse rhonchi upper airway lower lobes diminished bilaterally at the bases. A dry nonproductive cough. Currently 6 L nasal cannula ABDOMEN: Soft, nontender, nondistended with good bowel sounds. No peritoneal signs. No palpable organomegaly or masses. indwelling Boykin catheter in place EXTREMITIES: Normal skin color and turgor. bilateral chronic venous stasis plus edema noted Radial pedal pulses are 2/4 bilaterally. - Labs CBC & Chem 7: 08/17/16 04:13 08/17/16 04:13 Labs: Abnormal Lab Results - Last 24 Hours (Table) 08/16/16 08/16/16 08/16/16 Range/Units 17:20 17:31 21:12 RBC (4.30-5.90) m/uL Hgb (13.0-17.5) gm/dL MCV (80.0-100.0) fL MCHC (31.0-37.0) g/dL Plt Count (150-450) k/uL Lymphocytes # (1.0-4.8) k/uL Sodium (137-145) mmol/L Potassium (3.5-5.1) mmol/L Chloride (98-107) mmol/L Carbon Dioxide (22-30) mmol/L BUN (9-20) mg/dL Creatinine (0.66-1.25) mg/dL Glucose (74-99) mg/dL POC Glucose (mg/dL) 185 H 170 H (75-99) mg/dL Calcium (8.4-10.2) mg/dL Phosphorus (2.5-4.5) mg/dL AST (17-59) U/L ALT (21-72) U/L Total Protein (6.3-8.2) g/dL Albumin (3.5-5.0) g/dL Urine Protein 1+ H (Negative) Urine Bilirubin 1+ H (Negative) Urine WBC 6 H (0-5) /hpf Amorphous Sediment Rare H (None) /hpf Hyaline Casts 32 H (0-2) /lpf Urine Mucus Moderate H (None) /hpf 08/17/16 08/17/16 08/17/16 Range/Units 04:13 04:13 08:17 RBC 4.09 L (4.30-5.90) m/uL Hgb 12.4 L (13.0-17.5) gm/dL MCV 100.4 H (80.0-100.0) fL MCHC 30.2 L (31.0-37.0) g/dL Plt Count 88 L (150-450) k/uL Lymphocytes # 0.2 L (1.0-4.8) k/uL Sodium 133 L (137-145) mmol/L Potassium 5.2 H (3.5-5.1) mmol/L Chloride 92 L (98-107) mmol/L Carbon Dioxide 35 H (22-30) mmol/L BUN 26 H (9-20) mg/dL Creatinine 0.60 L (0.66-1.25) mg/dL Glucose 221 H (74-99) mg/dL POC Glucose (mg/dL) 266 H (75-99) mg/dL Calcium 8.2 L (8.4-10.2) mg/dL Phosphorus 2.1 L (2.5-4.5) mg/dL AST 85 H (17-59) U/L ALT 210 H (21-72) U/L Total Protein 5.4 L (6.3-8.2) g/dL Albumin 2.9 L (3.5-5.0) g/dL Urine Protein (Negative) Urine Bilirubin (Negative) Urine WBC (0-5) /hpf Amorphous Sediment (None) /hpf Hyaline Casts (0-2) /lpf Urine Mucus (None) /hpf 08/17/16 Range/Units 12:14 RBC (4.30-5.90) m/uL Hgb (13.0-17.5) gm/dL MCV (80.0-100.0) fL MCHC (31.0-37.0) g/dL Plt Count (150-450) k/uL Lymphocytes # (1.0-4.8) k/uL Sodium (137-145) mmol/L Potassium (3.5-5.1) mmol/L Chloride (98-107) mmol/L Carbon Dioxide (22-30) mmol/L BUN (9-20) mg/dL Creatinine (0.66-1.25) mg/dL Glucose (74-99) mg/dL POC Glucose (mg/dL) 207 H (75-99) mg/dL Calcium (8.4-10.2) mg/dL Phosphorus (2.5-4.5) mg/dL AST (17-59) U/L ALT (21-72) U/L Total Protein (6.3-8.2) g/dL Albumin (3.5-5.0) g/dL Urine Protein (Negative) Urine Bilirubin (Negative) Urine WBC (0-5) /hpf Amorphous Sediment (None) /hpf Hyaline Casts (0-2) /lpf Urine Mucus (None) /hpf Microbiology - Last 24 Hours (Table) 08/16/16 09:25 Gram Stain - Final Sputum Sputum Culture - Final 08/16/16 17:20 Urine Culture - Preliminary Urine,Catheterized 08/14/16 14:20 Blood Culture - Preliminary Blood No Growth after 48 hours Assessment and Plan Plan: Impression Present on admission acute hypoxic respiratory failure suspect due to an acute exacerbation of COPD Present on admission elevated d-dimer with a CAT scan of the chest showing no evidence of a pulmonary emboli Chronic physical medical debility Elevated trnasaminitis present on admission Chronic alcoholism daily consumption Significant nicotine dependency greater than a 40 year history 1 pack a day currently active Present on admission bilateral conjunctivitis Present on admission elevated BNP Present on admission urinary tract infection Present on admission electrolyte abnormality hypo-natremia hypochloremia Chronic persistent atrial fibrillation with episodes of rapid ventricular response on no anticoagulation outpatient setting Present on admission mild protein calorie malnutrition suspect due to poor caloric intake due to chronic illness Pulmonary cachectic Type 2 diabetes insulin requiring hemoglobin A1c 5.7 Impending DTs due to alcohol withdrawal on CIWA protocol using Ativan Plan Continue ICU management per the jewel bearing grinder Respiratory treatments as ordered Attempt to titrate the O2 down DVT and GI prophylaxis Resume home meds as appropriate Monitor for impending DTs using ciwa protocol Ativan PT OT eval manager talent to pursue the discharge plan patient would benefit from subacute rehab Monitor blood sugars while on steroids Consult cardiology recommendations rate control A. fib Repeat the labs in the morning Continue with recommendations by pulmonology Solu-Medrol 60 IV every 6 The above dictated assessment and findings were discussed with dr shilpi Fierro and the plan of care have been dictated as directed. Chichi Santizo nurse practitioner acting as a scribe for dr dobbins.
[2016-08-17] MEDS: VERAPAMIL 40 MG TAB PO SCH (14:12)
[2016-08-17] MEDS: METOPROLOL TARTRATE 12.5 MG TAB PO SCH ×2 (14:12→20:51)
[2016-08-17 18:22] LABS: Glucose,Whole Blood 221 mg/dL (75-99)
[2016-08-17] MEDS: ATORVASTATIN 40 MG TAB PO SCH (20:50)
[2016-08-17 20:51] LABS: Glucose,Whole Blood 374 mg/dL (75-99)
[2016-08-18] MEDS: SODIUM CHLORIDE 0.9% 1,000 ML IV SCH ×4 (02:29→18:22)
[2016-08-18] MEDS: VERAPAMIL 40 MG TAB PO SCH ×2 (02:29→12:24)
[2016-08-18] MEDS: methylPREDNISolone SOD SUCCI 125 MG/2 ML VIAL IV SCH ×2 (02:29→06:03)
[2016-08-18] MEDS: LORazepam 2 MG/ML SYRINGE IV PRN ×2 (02:32→22:32)
[2016-08-18 06:11] LABS: Basophils % (A) 0 %; CHCM 30.9; Eosinophils % (A) 0 %; HDW 2.41; HGB 13.3 gm/dL (13.0-17.5); Hypochromasia Slight; Luc # (Auto) 0.11; Luc % (Auto) 2; Lymphocytes # (A) 0.2 k/uL (1.0-4.8); Lymphocytes % (A) 4 %; MCH 30.9 pg (25.0-35.0); MCHC 31.7 g/dL (31.0-37.0); MCV 97.5 fL (80.0-100.0); Mean Platelet Volume 8.3; Monocytes # (A) 0.4 k/uL (0-1.0); Monocytes % (A) 8 %; Neutrophils # (A) 4.9 k/uL (1.3-7.7); Neutrophils % (A) 86 %; RBC 4.31 m/uL (4.30-5.90); RDW 13.4 % (11.5-15.5); WBC 5.7 k/uL (3.8-10.6); WBC (Perox) 5.38
[2016-08-18 06:39] LABS: ALT 156 U/L (21-72); AST 48 U/L (17-59); Alkaline Phosphatase 39 U/L (38-126); Blood Urea Nitrogen 24 mg/dL (9-20); Calcium 8.5 mg/dL (8.4-10.2); Chloride 90 mmol/L (98-107); Glucose 258 mg/dL (74-99); Magnesium 2.1 mg/dL (1.6-2.3); Non-African American GFR(MDRD) >60 (>60 ml/min/1.73 sqM); Phosphorous 2.7 mg/dL (2.5-4.5); Sodium 133 mmol/L (137-145); Total Bilirubin 0.5 mg/dL (0.2-1.3); Total Protein 5.7 g/dL (6.3-8.2)
[2016-08-18 06:44] LABS: Anion Gap 4 mmol/L; Carbon Dioxide 39 mmol/L (22-30)
[2016-08-18 07:45] LABS: Glucose,Whole Blood 258 mg/dL (75-99)
--- NOTE | 2016-08-18 07:47 | XR ---
EXAMINATION TYPE: XR chest 1V portable DATE OF EXAM: 08/18/2016 7:09 AM Comparison: 08/17/2016 Clinical History: 61 year-old male shortness of breath. Findings: Heart remains mildly enlarged. Diffuse interstitial prominence is similar. Some patchy right basilar opacity is unchanged. Small left pleural effusion is also stable. Marino B lines are suggested. Impression: Overall stable exam. Correlate for CHF with pulmonary vascular congestion/early interstitial edema. S imilar small left pleural effusion with adjacent atelectasis and/or consolidation.
[2016-08-18] MEDS: ENOXAPARIN 40 MG/0.4 ML SYRINGE SQ SCH (08:48)
[2016-08-18] MEDS: DIGOXIN 125 MCG TAB PO SCH (08:48)
[2016-08-18] MEDS: PANTOPRAZOLE 40 MG TABLET PO SCH (08:48)
[2016-08-18] MEDS: LISINOPRIL 20 MG TAB PO SCH (08:49)
[2016-08-18] MEDS: METOPROLOL TARTRATE 12.5 MG TAB PO SCH (08:49)
[2016-08-18] MEDS: TOBRAMYCIN 0.3% OPHTH DROPS 5 ML BTL BOTH EYES SCH ×4 (08:50→22:09)
[2016-08-18] MEDS: NICOTINE 21MG/24HR PATCH TRANSDERM SCH (08:52)
[2016-08-18] MEDS: INSULIN LISPRO (humaLOG) 300 UNIT/3 ML VIAL SQ SCH ×4 (08:58→22:07)
[2016-08-18] MEDS ORDERED: METOPROLOL TARTRATE 25 MG TAB PO STA (09:40)
[2016-08-18] MEDS ORDERED: METOPROLOL TARTRATE 12.5 MG TAB PO STA (09:40)
[2016-08-18] MEDS: RIVAROXABAN 10 MG TAB PO SCH (10:37)
[2016-08-18] MEDS: BUDESONIDE 0.5 MG/2 ML NEBU INHALATION SCH ×2 (11:17→21:27)
[2016-08-18 12:21] LABS: Glucose,Whole Blood 235 mg/dL (75-99)
[2016-08-18] MEDS: THIAMINE 100 MG TAB PO SCH (12:24)
--- NOTE | 2016-08-18 13:04 | P.PN ---
Subjective Principal diagnosis: Acute hypoxic respiratory failure Patient seen and examined in the ICU with nursing staff at bedside. The patient is somnolent today but he did receive Ativan per the C1 protocol. He patient has been on nasal cannula and not requiring BiPAP. He has been hemodynamically stable. He does have atrial fibrillation and his medications have been adjusted by cardiology. He has adequate urine output. He has had elevated blood sugars. Objective - Vital Signs Vital signs: Vital Signs Temp 98.6 F 08/18/16 11:49 Pulse 108 H 08/18/16 11:49 Resp 18 08/18/16 11:49 BP 156/86 08/18/16 11:49 Pulse Ox 95 08/18/16 11:49 Intake & Output 08/17/16 08/18/16 08/18/16 18:59 06:59 18:59 Intake Total 900 1140 210 Output Total 1985 530 565 Balance -1085 610 -355 Weight 108 kg Intake: Intake, IV Titration 900 900 210 Amount Sodium Chloride 0.9% 1, 900 900 210 000 ml @ 20 mls/hr IV . Q24H [facility] Rx#:[id number] Oral 240 Output: Urine 1984 530 565 Other: Voiding Method Indwelling Catheter Indwelling Catheter Indwelling Catheter - Exam Gen.: Patient is arousable but somnolent Cardiovascular: Irregular rate and rhythm, S1/S2 Lungs: Coarse breath sounds bilaterally Abdomen: Soft nontender nondistended positive bowel sounds Extremities: Trace edema - Labs CBC & Chem 7: 08/18/16 05:38 08/18/16 05:38 Labs: Abnormal Lab Results - Last 24 Hours (Table) 08/17/16 08/17/16 08/18/16 Range/Units 18:21 20:49 05:38 Plt Count 90 L (150-450) k/uL Lymphocytes # 0.2 L (1.0-4.8) k/uL Sodium (137-145) mmol/L Chloride (98-107) mmol/L Carbon Dioxide (22-30) mmol/L BUN (9-20) mg/dL Creatinine (0.66-1.25) mg/dL Glucose (74-99) mg/dL POC Glucose (mg/dL) 221 H 374 H (75-99) mg/dL ALT (21-72) U/L Total Protein (6.3-8.2) g/dL Albumin (3.5-5.0) g/dL 08/18/16 08/18/16 08/18/16 Range/Units 05:38 07:44 12:19 Plt Count (150-450) k/uL Lymphocytes # (1.0-4.8) k/uL Sodium 133 L (137-145) mmol/L Chloride 90 L (98-107) mmol/L Carbon Dioxide 39 H (22-30) mmol/L BUN 24 H (9-20) mg/dL Creatinine 0.60 L (0.66-1.25) mg/dL Glucose 258 H (74-99) mg/dL POC Glucose (mg/dL) 258 H 235 H (75-99) mg/dL ALT 156 H (21-72) U/L Total Protein 5.7 L (6.3-8.2) g/dL Albumin 3.3 L (3.5-5.0) g/dL Microbiology - Last 24 Hours (Table) 08/16/16 17:20 Urine Culture - Final Urine,Catheterized 08/14/16 14:20 Blood Culture - Preliminary Blood No Growth after 72 hours Assessment and Plan Plan: Acute hypoxic respiratory failure AECHF, pulmonary vascular congestion, diastolic Mild Pulmonary hypertension Small left pleural effusion Acute exacerbation of COPD Atrial fibrillation with RVR Bilateral lower extremity edema Elevated d-dimer Elevated BNP Thrombocytopenia Hyponatremia hypochloremia Toxic metabolic encephalopathy Urinary tract infection POA Transaminitis Bilateral conjunctivitis Alcohol abuse Medical debility DTs due to alcohol withdrawal. Tobacco abuse DM2, steroid contributing to hyperglycemia Plan Medications have been reviewed and will be continued as ordered. We'll closely monitor I's snd O's. Continue with the current nebulizer treatments and IV antibiotics. Continue with antibiotic eyedrops. Initiate and encourage incentive spirometer. BiPAP at night and when necessary throughout the day. Repeat chest x-ray in the morning. Repeat labs in the morning. CIWA protocol as ordered. Replace electrolytes per protocol. Cardiology to see patient and is aware of the recent heart rate and blood pressures. We will continue to monitor labs/results and adjust treatment as necessary. DC IV Solumedrol due to BS. Xarelto has been initiated for afib. Monitor Na.
--- NOTE | 2016-08-18 16:53 | PN ---
DATE OF SERVICE: 08/18/2016 CHIEF COMPLAINT: Mental status changes, respiratory failure, COPD, chronic alcoholism and delirium. HISTORY OF PRESENT ILLNESS: This gentleman has been doing fairly well. He is getting slightly confused. So I wonder if he is going into DTs. His sugars have also been high, but he has no bronchospasm and he can probably have steroids stopped. PHYSICAL EXAMINATION: He is arousable. Gaze is conjugate. CHEST: Clear but breath sounds are diminished. Cardiac exam demonstrates atrial fibrillation. ABDOMEN: Soft. There are no masses. EXTREMITIES: Minimally edematous. IMPRESSION: 1. Mental status changes. 2. Acute respiratory failure. 3. Chronic obstructive pulmonary disease. 4. Chronic alcoholism. 5. Possible impending delirium tremens. 6. Atrial fibrillation. 7. Elevated blood sugars. PLAN: 1. Stop steroids. 2. Switch him over to Rivaroxaban 20 mg once a day for anticoagulation. 3. Increase activity and diet. 4. Move to regular bed. 5. Watch for worsening DTs.
--- NOTE | 2016-08-18 17:40 | CONS ---
DATE OF CONSULTATION: I was consulted by Dr. Morse for evaluation of atrial fibrillation with RVR in this gentleman with severe lung disease and respiratory distress. He has a history of long-standing COPD, alcohol abuse and smoking. He was admitted initially with sinus tachycardia ( ) atrial fibrillation with RVR. I spoke to Chichi Santizo regarding his management. We initially started him on low-dose beta blockers because of alcohol withdrawal, but he was also having respiratory distress; therefore these were only small doses we were using of oral calcium channel blockers ( ) rate control. On examination, his blood pressure is 160/63 mmHg. Heart rate ranges from 100 to 130 beats per minute. He is afebrile. Breath sounds are reduced bilaterally. He is somnolent. IMPRESSION: 1. Atrial fibrillation with rapid ventricular response. 2. Alcohol abuse. 3. Severe chronic obstructive pulmonary disease. SUGGEST: Rate control only at this time. His dose of beta blockers is increased to 50 mg twice daily. He is also on Verapamil 40 mg q.12 and low-dose digoxin. His creatinine is normal. Overall prognosis is poor. Rate control of atrial fibrillation at this time. Poor candidate for anticoagulation.
[2016-08-18 18:11] LABS: Glucose,Whole Blood 145 mg/dL (75-99)
[2016-08-18] MEDS: IPRATROPIUM-ALBUTEROL 3 ML NEB INHALATION PRN (21:27)
[2016-08-18 21:31] LABS: Glucose,Whole Blood 146 mg/dL (75-99)
[2016-08-18] MEDS: ATORVASTATIN 40 MG TAB PO SCH (22:07)
[2016-08-18] MEDS: METOPROLOL TARTRATE 50 MG TAB PO SCH (22:09)
[2016-08-19] MEDS: VERAPAMIL 40 MG TAB PO SCH ×3 (00:36→23:50)
[2016-08-19 06:32] LABS: Glucose,Whole Blood 151 mg/dL (75-99)
[2016-08-19] MEDS: PANTOPRAZOLE 40 MG TABLET PO SCH (06:44)
[2016-08-19] MEDS: RIVAROXABAN 10 MG TAB PO SCH (06:44)
[2016-08-19 06:45] LABS: Basophils % (A) 0 %; CH 29.7; CHCM 29.6; Eosinophils # (A) 0.1 k/uL (0-0.7); Eosinophils % (A) 1 %; HCT 44.5 % (39.0-53.0); HDW 2.34; HGB 13.5 gm/dL (13.0-17.5); Hypochromasia Marked; Luc # (Auto) 0.11; Luc % (Auto) 2; Lymphocytes # (A) 0.8 k/uL (1.0-4.8); Lymphocytes % (A) 14 %; MCH 30.5 pg (25.0-35.0); MCHC 30.3 g/dL (31.0-37.0); MCV 100.5 fL (80.0-100.0); Macrocytosis Slight; Mean Platelet Volume 8.9; Monocytes # (A) 0.9 k/uL (0-1.0); Monocytes % (A) 15 %; Neutrophils # (A) 3.8 k/uL (1.3-7.7); Neutrophils % (A) 67 %; RBC 4.43 m/uL (4.30-5.90); RDW 13.5 % (11.5-15.5); WBC 5.6 k/uL (3.8-10.6); WBC (Perox) 5.59
[2016-08-19 07:03] LABS: ALT 131 U/L (21-72); AST 49 U/L (17-59); Alkaline Phosphatase 35 U/L (38-126); Blood Urea Nitrogen 28 mg/dL (9-20); Calcium 8.6 mg/dL (8.4-10.2); Chloride 89 mmol/L (98-107); Glucose 164 mg/dL (74-99); Non-African American GFR(MDRD) >60 (>60 ml/min/1.73 sqM); Phosphorous 3.4 mg/dL (2.5-4.5); Potassium 4.4 mmol/L (3.5-5.1); Sodium 138 mmol/L (137-145); Total Bilirubin 0.5 mg/dL (0.2-1.3); Total Protein 5.3 g/dL (6.3-8.2)
[2016-08-19 07:10] LABS: Anion Gap 2 mmol/L
[2016-08-19 07:16] LABS: Carbon Dioxide 47 mmol/L (22-30)
[2016-08-19] MEDS: INSULIN LISPRO (humaLOG) 300 UNIT/3 ML VIAL SQ SCH ×4 (07:30→22:00)
[2016-08-19] MEDS: IPRATROPIUM-ALBUTEROL 3 ML NEB INHALATION PRN ×4 (08:58→20:54)
[2016-08-19] MEDS: BUDESONIDE 0.5 MG/2 ML NEBU INHALATION SCH ×2 (08:58→20:54)
[2016-08-19 12:00] LABS: Glucose,Whole Blood 186 mg/dL (75-99)
[2016-08-19] MEDS: THIAMINE 100 MG TAB PO SCH (12:17)
[2016-08-19] MEDS: METOPROLOL TARTRATE 50 MG TAB PO SCH ×2 (12:17→20:28)
[2016-08-19] MEDS: NICOTINE 21MG/24HR PATCH TRANSDERM SCH (12:17)
[2016-08-19] MEDS: LISINOPRIL 20 MG TAB PO SCH (12:17)
[2016-08-19] MEDS: TOBRAMYCIN 0.3% OPHTH DROPS 5 ML BTL BOTH EYES SCH ×4 (12:18→20:29)
[2016-08-19 15:22] LABS: Glucose,Whole Blood 267 mg/dL (75-99)
--- NOTE | 2016-08-19 15:42 | P.PN ---
Subjective Principal diagnosis: Acute hypoxic respiratory failure Patient seen and examined covering for Dr. Pandya. The patient states he is feeling better today. He is much more alert. The patient is currently on 5 L nasal cannula. He does have coarse breath sounds bilaterally. The patient denies any fevers, chills, cough. Objective - Vital Signs Vital signs: Vital Signs Temp 98.4 F 08/19/16 08:00 Pulse 100 08/19/16 14:04 Resp 18 08/19/16 04:00 BP 117/75 08/19/16 12:00 Pulse Ox 94 L 08/19/16 12:00 Intake & Output 08/18/16 08/19/16 08/19/16 18:59 06:59 18:59 Intake Total 447 155 40 Output Total 565 Balance -118 155 40 Weight 107 kg Intake: IV 155 40 Sodium Chloride 0.9% 1, 155 40 000 ml @ 20 mls/hr IV . Q24H [facility] Rx#:[id number] Intake, IV Titration 210 Amount Sodium Chloride 0.9% 1, 210 000 ml @ 20 mls/hr IV . Q24H [facility] Rx#:[id number] Oral 237 Output: Urine 565 Other: Voiding Method Indwelling Catheter Diaper Diaper # Voids 1 - Exam Gen.: Patient is arousable but somnolent Cardiovascular: Irregular rate and rhythm, S1/S2 Lungs: Coarse breath sounds bilaterally Abdomen: Soft nontender nondistended positive bowel sounds Extremities: Trace edema - Labs CBC & Chem 7: 08/19/16 06:15 08/19/16 06:15 Labs: Abnormal Lab Results - Last 24 Hours (Table) 08/18/16 08/18/16 08/19/16 Range/Units 18:08 21:17 06:15 MCV 100.5 H (80.0-100.0) fL MCHC 30.3 L (31.0-37.0) g/dL Plt Count 99 L (150-450) k/uL Lymphocytes # 0.8 L (1.0-4.8) k/uL Chloride (98-107) mmol/L Carbon Dioxide (22-30) mmol/L BUN (9-20) mg/dL Creatinine (0.66-1.25) mg/dL Glucose (74-99) mg/dL POC Glucose (mg/dL) 145 H 146 H (75-99) mg/dL ALT (21-72) U/L Alkaline Phosphatase (38-126) U/L Total Protein (6.3-8.2) g/dL Albumin (3.5-5.0) g/dL 08/19/16 08/19/16 08/19/16 Range/Units 06:15 06:23 11:55 MCV (80.0-100.0) fL MCHC (31.0-37.0) g/dL Plt Count (150-450) k/uL Lymphocytes # (1.0-4.8) k/uL Chloride 89 L (98-107) mmol/L Carbon Dioxide 47 H* (22-30) mmol/L BUN 28 H (9-20) mg/dL Creatinine 0.60 L (0.66-1.25) mg/dL Glucose 164 H (74-99) mg/dL POC Glucose (mg/dL) 151 H 186 H (75-99) mg/dL ALT 131 H (21-72) U/L Alkaline Phosphatase 35 L (38-126) U/L Total Protein 5.3 L (6.3-8.2) g/dL Albumin 3.0 L (3.5-5.0) g/dL 08/19/16 Range/Units 15:07 MCV (80.0-100.0) fL MCHC (31.0-37.0) g/dL Plt Count (150-450) k/uL Lymphocytes # (1.0-4.8) k/uL Chloride (98-107) mmol/L Carbon Dioxide (22-30) mmol/L BUN (9-20) mg/dL Creatinine (0.66-1.25) mg/dL Glucose (74-99) mg/dL POC Glucose (mg/dL) 267 H (75-99) mg/dL ALT (21-72) U/L Alkaline Phosphatase (38-126) U/L Total Protein (6.3-8.2) g/dL Albumin (3.5-5.0) g/dL Microbiology - Last 24 Hours (Table) 08/14/16 14:20 Blood Culture - Preliminary Blood No Growth after 96 hours Assessment and Plan Plan: Acute hypoxic respiratory failure AECHF, pulmonary vascular congestion, diastolic Mild Pulmonary hypertension Small left pleural effusion Acute exacerbation of COPD Atrial fibrillation with RVR Bilateral lower extremity edema Elevated d-dimer Elevated BNP Thrombocytopenia Hyponatremia hypochloremia Toxic metabolic encephalopathy Urinary tract infection POA Transaminitis Bilateral conjunctivitis Alcohol abuse Medical debility DTs due to alcohol withdrawal. Tobacco abuse DM2, steroid contributing to hyperglycemia Plan Medications have been reviewed and will be continued as ordered. We'll closely monitor I's snd O's. Continue with the current nebulizer treatments and IV antibiotics. Continue with antibiotic eyedrops. Initiate and encourage incentive spirometer. BiPAP at night and when necessary throughout the day. Repeat labs in the morning. Replace electrolytes per protocol. Cardiology to see patient and is aware of the recent heart rate and blood pressures. We will continue to monitor labs/results and adjust treatment as necessary. DC IV Solumedrol due to BS per primary team. Xarelto has been initiated for afib. Monitor Na. Will give diamox today.
[2016-08-19 17:49] LABS: Glucose,Whole Blood 237 mg/dL (75-99)
[2016-08-19] MEDS: FUROSEMIDE 40 MG TAB PO SCH (18:17)
[2016-08-19] MEDS: SODIUM CHLORIDE 0.9% 1,000 ML IV SCH (18:21)
[2016-08-19] MEDS: ATORVASTATIN 40 MG TAB PO SCH (20:28)
[2016-08-19] MEDS: LORazepam 2 MG/ML SYRINGE IV PRN (20:34)
[2016-08-19 20:58] LABS: Glucose,Whole Blood 240 mg/dL (75-99)
[2016-08-20 06:13] LABS: Glucose,Whole Blood 155 mg/dL (75-99)
[2016-08-20 06:47] LABS: Basophils % (A) 0 %; CH 29.9; CHCM 29.7; Eosinophils # (A) 0.2 k/uL (0-0.7); Eosinophils % (A) 3 %; HCT 44.9 % (39.0-53.0); HDW 2.36; HGB 13.5 gm/dL (13.0-17.5); Hypochromasia Marked; Luc # (Auto) 0.11; Luc % (Auto) 2; Lymphocytes # (A) 0.7 k/uL (1.0-4.8); Lymphocytes % (A) 12 %; MCH 30.5 pg (25.0-35.0); MCHC 30.1 g/dL (31.0-37.0); MCV 101.2 fL (80.0-100.0); Macrocytosis Slight; Mean Platelet Volume 8.6; Monocytes # (A) 0.9 k/uL (0-1.0); Monocytes % (A) 14 %; Neutrophils # (A) 4.3 k/uL (1.3-7.7); Neutrophils % (A) 70 %; RBC 4.44 m/uL (4.30-5.90); RDW 13.4 % (11.5-15.5); WBC 6.1 k/uL (3.8-10.6); WBC (Perox) 6.27
[2016-08-20] MEDS: PANTOPRAZOLE 40 MG TABLET PO SCH (06:47)
[2016-08-20] MEDS: RIVAROXABAN 10 MG TAB PO SCH (06:47)
[2016-08-20] MEDS: INSULIN LISPRO (humaLOG) 300 UNIT/3 ML VIAL SQ SCH ×4 (06:48→21:03)
[2016-08-20] MEDS: LORazepam 2 MG/ML SYRINGE IV PRN (07:02)
[2016-08-20 07:46] LABS: ALT 112 U/L (21-72); AST 37 U/L (17-59); Alkaline Phosphatase 33 U/L (38-126); Blood Urea Nitrogen 22 mg/dL (9-20); Calcium 8.3 mg/dL (8.4-10.2); Chloride 87 mmol/L (98-107); Glucose 146 mg/dL (74-99); Magnesium 1.6 mg/dL (1.6-2.3); Non-African American GFR(MDRD) >60 (>60 ml/min/1.73 sqM); Potassium 3.8 mmol/L (3.5-5.1); Sodium 137 mmol/L (137-145); Total Bilirubin 0.7 mg/dL (0.2-1.3); Total Protein 5.3 g/dL (6.3-8.2)
[2016-08-20 07:47] LABS: Glucose,Whole Blood 151 mg/dL (75-99)
[2016-08-20] MEDS: NICOTINE 21MG/24HR PATCH TRANSDERM SCH (08:12)
[2016-08-20] MEDS: METOPROLOL TARTRATE 50 MG TAB PO SCH ×2 (08:13→21:01)
[2016-08-20] MEDS: FUROSEMIDE 40 MG TAB PO SCH (08:13)
[2016-08-20] MEDS: LISINOPRIL 20 MG TAB PO SCH (08:13)
[2016-08-20] MEDS: THIAMINE 100 MG TAB PO SCH (08:14)
[2016-08-20 08:17] LABS: Anion Gap 8 mmol/L
[2016-08-20 08:25] LABS: Carbon Dioxide 42 mmol/L (22-30)
--- NOTE | 2016-08-20 08:58 | XR ---
EXAMINATION TYPE: XR chest 1V portable DATE OF EXAM: 08/20/2016 8:53 AM COMPARISON: 08/18/2016 INDICATION: Hypoxia TECHNIQUE: Single frontal view of the chest is obtained. FINDINGS: The heart size is normal. The pulmonary vasculature is normal. There is a right lower lobe infiltrate. Correlate for right lower lobe pneumonia. IMPRESSION: 1. Right lower lobe infiltrate. Correlate for pneumonia or atelectasis. Follow-up is recommended. Ifeanyi krafts are developing from comparison.
[2016-08-20] MEDS: IPRATROPIUM-ALBUTEROL 3 ML NEB INHALATION PRN ×4 (09:30→21:09)
[2016-08-20] MEDS: BUDESONIDE 0.5 MG/2 ML NEBU INHALATION SCH ×2 (09:30→21:09)
[2016-08-20] MEDS: TOBRAMYCIN 0.3% OPHTH DROPS 5 ML BTL BOTH EYES SCH ×4 (10:19→21:01)
[2016-08-20 11:16] LABS: Glucose,Whole Blood 215 mg/dL (75-99)
--- NOTE | 2016-08-20 11:49 | P.PN ---
Subjective 61-year-old being seen and evaluated. Currently the patient is on 5 L nasal cannula. Patient had been given Ativan earlier is sedated but arousable to verbal stimuli. Patients being followed by pulmonology recommendations reviewed noted. Did note the IV Solu-Medrol has been stopped secondary to a the blood sugars being elevated. Patient has episodes of atrial fibrillation variable ventricular response with exertion does go up into the 120s. Cardiology did start patient on low-dose beta elliot and calcium channel elliot. The discharge plan is in progress patients being evaluated for subacute rehab the oxygen is being titrated down to keep the sats greater than 90%. Objective - Vital Signs Vital signs: Vital Signs Temp 97.8 F 08/20/16 04:00 Pulse 82 08/20/16 10:59 Resp 16 08/20/16 10:59 BP 122/71 08/20/16 10:59 Pulse Ox 91 L 08/20/16 10:59 Intake & Output 08/19/16 08/20/16 08/20/16 18:59 06:59 18:59 Intake Total 420 222 0 Balance 420 222 0 Weight 105 kg Intake: IV 40 Sodium Chloride 0.9% 1, 40 000 ml @ 20 mls/hr IV . Q24H [facility] Rx#:[id number] Oral 380 222 0 Other: Voiding Method Diaper Diaper Diaper # Voids 2 - Exam GENERAL APPEARANCE: 61-year-old male looking older than stated age unkemp sitting up in bedt patient oriented to person and place and event , in no acute distress. VITAL SIGNS reviewed : HEENT: Head is normocephalic and atraumatic. Pupils are equal and reactive. The nares are patent. Oropharynx is clear without lesions. NECK: Supple without lymphadenopathy. Traches midline. HEART: S1, S2. irregular monitor atrial fibrillation variable ventricular response no murmur noted LUNGS: coarse rhonchi upper airway lower lobes diminished bilaterally at the bases. A dry nonproductive cough. Currently 5L nasal cannula ABDOMEN: Soft, nontender, nondistended with good bowel sounds. No peritoneal signs. No palpable organomegaly or masses. Incontinent urine EXTREMITIES: Normal skin color and turgor. bilateral chronic venous stasis plus edema noted Radial pedal pulses are 2/4 bilaterally. - Labs CBC & Chem 7: 08/20/16 06:12 05/22/17 06:12 Labs: Abnormal Lab Results - Last 24 Hours (Table) 08/19/16 08/19/16 08/19/16 Range/Units 11:55 15:07 17:08 MCV (80.0-100.0) fL MCHC (31.0-37.0) g/dL Plt Count (150-450) k/uL Lymphocytes # (1.0-4.8) k/uL Chloride (98-107) mmol/L Carbon Dioxide (22-30) mmol/L BUN (9-20) mg/dL Glucose (74-99) mg/dL POC Glucose (mg/dL) 186 H 267 H 237 H (75-99) mg/dL Calcium (8.4-10.2) mg/dL Phosphorus (2.5-4.5) mg/dL ALT (21-72) U/L Alkaline Phosphatase (38-126) U/L Total Protein (6.3-8.2) g/dL Albumin (3.5-5.0) g/dL 08/19/16 08/20/16 08/20/16 Range/Units 20:57 06:11 06:12 MCV 101.2 H (80.0-100.0) fL MCHC 30.1 L (31.0-37.0) g/dL Plt Count 105 L (150-450) k/uL Lymphocytes # 0.7 L (1.0-4.8) k/uL Chloride (98-107) mmol/L Carbon Dioxide (22-30) mmol/L BUN (9-20) mg/dL Glucose (74-99) mg/dL POC Glucose (mg/dL) 240 H 155 H (75-99) mg/dL Calcium (8.4-10.2) mg/dL Phosphorus (2.5-4.5) mg/dL ALT (21-72) U/L Alkaline Phosphatase (38-126) U/L Total Protein (6.3-8.2) g/dL Albumin (3.5-5.0) g/dL 08/20/16 08/20/16 08/20/16 Range/Units 06:12 07:34 11:15 MCV (80.0-100.0) fL MCHC (31.0-37.0) g/dL Plt Count (150-450) k/uL Lymphocytes # (1.0-4.8) k/uL Chloride 87 L (98-107) mmol/L Carbon Dioxide 42 H* (22-30) mmol/L BUN 22 H (9-20) mg/dL Glucose 146 H (74-99) mg/dL POC Glucose (mg/dL) 151 H 215 H (75-99) mg/dL Calcium 8.3 L (8.4-10.2) mg/dL Phosphorus 5.0 H (2.5-4.5) mg/dL ALT 112 H (21-72) U/L Alkaline Phosphatase 33 L (38-126) U/L Total Protein 5.3 L (6.3-8.2) g/dL Albumin 2.9 L (3.5-5.0) g/dL Microbiology - Last 24 Hours (Table) 08/14/16 14:20 Blood Culture - Preliminary Blood No Growth after 120 hours Assessment and Plan Plan: Impression Present on admission acute hypoxic respiratory failure suspect due to an acute exacerbation of COPD Present on admission elevated d-dimer with a CAT scan of the chest showing no evidence of a pulmonary emboli Chronic physical medical debility Elevated trnasaminitis present on admission Chronic alcoholism daily consumption Significant nicotine dependency greater than a 40 year history 1 pack a day currently active Present on admission bilateral conjunctivitis Present on admission elevated BNP Present on admission urinary tract infection Present on admission electrolyte abnormality hypo-natremia hypochloremia Chronic persistent atrial fibrillation with episodes of rapid ventricular response on no anticoagulation outpatient setting Present on admission mild protein calorie malnutrition suspect due to poor caloric intake due to chronic illness Pulmonary cachectic Type 2 diabetes insulin requiring hemoglobin A1c 5.7 Impending DTs due to alcohol withdrawal on CIWA protocol using Ativan Chronic toxic encephalopathy suspect alcohol-related Bilateral conjunctivitis Thrombocytopenia suspect alcohol-related Toxic metabolic encephalopathy suspect alcohol-related episodes steroids contributing to hyperglycemic episodes Plan DC CIWA protocol Respiratory treatments as ordered Attempt to titrate the O2 down DVT and GI prophylaxis Resume home meds as appropriate PT OT eval manager product design to pursue the discharge plan patient would benefit from subacute rehab Monitor blood sugars while on steroids Consult cardiology recommendations rate control A. fib Repeat the labs in the morning The above dictated assessment and findings were discussed with dr dobbins Impression and the plan of care have been dictated as directed. Chichi Santizo nurse practitioner acting as a scribe for dr dobbins.
--- NOTE | 2016-08-20 13:20 | P.PN ---
Subjective This is a 61-year-old male patient being evaluated and examined today in the selective care unit this patient came into the emergency room with shortness of breath that had been increasing in severity over the last few days. Patient has had a nonproductive cough. Patient is also an active smoker and has a long- standing history of COPD. He also has a long-standing history of alcohol abuse. According to the chart the patient was found by a home health care worker that usually sees him every 3 days or so and he was covered in stool and urine and was in a wheelchair. The patient has been too weak to ambulate on his own and then ordering delivery food to be brought directly to him. In the ER the patient had EKG which showed sinus tachycardia. He did have a 1 L bolus of normal saline. He did have an elevated BNP as well as some conjunctivitis and was given eyedrops. The patient was started on BiPAP due to being hypoxic and shortness of breath. There is some controversy on his ABG results on whether they are accurate or not during the evaluation in the emergency room. Patient's d-dimer also was elevated and had a CT A of his chest to rule out pulmonary embolism. The CTA was negative for PE and showed the possibility of some congestive heart failure. The patient was admitted with bacterial conjunctivitis, acute respiratory failure, acute exacerbation of COPD, alcohol abuse, bilateral lower extremity edema, elevated d-dimer, elevated BNP, hyponatremia hypochloremia, debility and weakness, UTI, transaminitis, and diarrhea. On examination the patient is currently on 4 L of oxygen via nasal cannula. Patient has a cough however its nonproductive. Patient continues to shake due to withdrawing from alcohol. Patient is on CIWA protocol. Patient states he has not used the BiPAP machine the last few days, he has been refusing it, after much education the patient has agreed to try BiPAP again at night and as needed. The patient is much more alert and awake than previous days. Objective - Vital Signs Vital signs: Vital Signs Temp 97.8 F 08/20/16 04:00 Pulse 85 08/20/16 12:19 Resp 16 08/20/16 10:59 BP 122/71 08/20/16 10:59 Pulse Ox 91 L 08/20/16 10:59 Intake & Output 08/19/16 08/20/16 08/20/16 18:59 06:59 18:59 Intake Total 420 222 200 Balance 420 222 200 Weight 105 kg Intake: IV 40 Sodium Chloride 0.9% 1, 40 000 ml @ 20 mls/hr IV . Q24H [facility] Rx#:[id number] Oral 380 222 200 Other: Voiding Method Diaper Diaper Diaper # Voids 2 - Exam GENERAL EXAM: Alert, active, comfortable in no apparent distress. HEAD: Normocephalic. EYES: Normal reaction of pupils, equal size. Some purulent conjunctivitis noted NOSE: Clear with pink turbinates. THROAT: No erythema or exudates. NECK: No masses, no JVD. CHEST: No chest wall deformity. LUNGS: Decreased air entry, scattered rhonchi and wheezes noted throughout. Bases diminished CVS: S1 and S2 normal with no audible mumurs, regular rhythm. ABDOMEN: No hepatosplenomegaly, normal bowel sounds, no guarding or rigidity. EXTREMITIES: +1-2 edema noted, pedal pulses palpable. SKIN: No rashes CENTRAL NERVOUS SYSTEM: No focal deficits, tone is normal in all 4 extremities. - Labs CBC & Chem 7: 08/20/16 06:12 08/20/16 06:12 Labs: Abnormal Lab Results - Last 24 Hours (Table) 08/19/16 08/19/16 08/19/16 Range/Units 15:07 17:08 20:57 MCV (80.0-100.0) fL MCHC (31.0-37.0) g/dL Plt Count (150-450) k/uL Lymphocytes # (1.0-4.8) k/uL Chloride (98-107) mmol/L Carbon Dioxide (22-30) mmol/L BUN (9-20) mg/dL Glucose (74-99) mg/dL POC Glucose (mg/dL) 267 H 237 H 240 H (75-99) mg/dL Calcium (8.4-10.2) mg/dL Phosphorus (2.5-4.5) mg/dL ALT (21-72) U/L Alkaline Phosphatase (38-126) U/L Total Protein (6.3-8.2) g/dL Albumin (3.5-5.0) g/dL 08/20/16 08/20/16 08/20/16 Range/Units 06:11 06:12 06:12 MCV 101.2 H (80.0-100.0) fL MCHC 30.1 L (31.0-37.0) g/dL Plt Count 105 L (150-450) k/uL Lymphocytes # 0.7 L (1.0-4.8) k/uL Chloride 87 L (98-107) mmol/L Carbon Dioxide 42 H* (22-30) mmol/L BUN 22 H (9-20) mg/dL Glucose 146 H (74-99) mg/dL POC Glucose (mg/dL) 155 H (75-99) mg/dL Calcium 8.3 L (8.4-10.2) mg/dL Phosphorus 5.0 H (2.5-4.5) mg/dL ALT 112 H (21-72) U/L Alkaline Phosphatase 33 L (38-126) U/L Total Protein 5.3 L (6.3-8.2) g/dL Albumin 2.9 L (3.5-5.0) g/dL 08/20/16 08/20/16 Range/Units 07:34 11:15 MCV (80.0-100.0) fL MCHC (31.0-37.0) g/dL Plt Count (150-450) k/uL Lymphocytes # (1.0-4.8) k/uL Chloride (98-107) mmol/L Carbon Dioxide (22-30) mmol/L BUN (9-20) mg/dL Glucose (74-99) mg/dL POC Glucose (mg/dL) 151 H 215 H (75-99) mg/dL Calcium (8.4-10.2) mg/dL Phosphorus (2.5-4.5) mg/dL ALT (21-72) U/L Alkaline Phosphatase (38-126) U/L Total Protein (6.3-8.2) g/dL Albumin (3.5-5.0) g/dL Microbiology - Last 24 Hours (Table) 08/14/16 14:20 Blood Culture - Preliminary Blood No Growth after 120 hours Assessment and Plan Plan: Assessment Acute hypoxic respiratory failure Acute exacerbation of COPD Bilateral lower extremity edema Elevated d-dimer Elevated BNP Hyponatremia hypochloremia Urinary tract infection POA Transaminitis Bilateral conjunctivitis Alcohol abuse Medical debility DTs due to alcohol withdrawal. Nicotine dependence Toxic metabolic encephalopathy Plan Patient could be cleared for discharge from a pulmonary standpoint however may require initiation of home oxygen use. Medications have been reviewed and will be continued as ordered. Patient will receive a 1 time dose of Lasix 40 mg. We 'll closely monitor I's snd O's. Continue with the current nebulizer treatments and IV antibiotics. Continue with antibiotic eyedrops. Continue with scheduled IV steroids. Initiate and encourage incentive spirometer. BiPAP at night and when necessary throughout the day. Repeat labs in the morning. CIWA protocol as ordered. Replace electrolytes per protocol. Currently on 02 for atrial fibrillation. We will continue to monitor labs/ results and adjust treatment as necessary. I performed an examination of the patient and discussed their management with the nurse practitioner. I have reviewed the nurse practitioner's note and agree with the documented findings and plan of care.
[2016-08-20 16:44] LABS: Glucose,Whole Blood 199 mg/dL (75-99)
[2016-08-20] MEDS: CEFUROXIME 250 MG TAB PO SCH ×2 (17:44→20:59)
[2016-08-20] MEDS: VERAPAMIL 40 MG TAB PO SCH ×2 (17:46→21:02)
[2016-08-20] MEDS: SODIUM CHLORIDE 0.9% 1,000 ML IV SCH (17:48)
[2016-08-20 20:44] LABS: Glucose,Whole Blood 307 mg/dL (75-99)
[2016-08-20] MEDS: ATORVASTATIN 40 MG TAB PO SCH (21:01)
--- NOTE | 2016-08-20 23:40 | PN ---
DATE OF SERVICE: 08/19/2016 CHIEF COMPLAINT: Exacerbation of COPD, CHF, atrial fibrillation. HISTORY OF PRESENT ILLNESS: This gentleman is doing reasonably well, but he is still having some respiratory distress. This is usual for him. He is a little bit cyanotic and his CO2 is over 40. He is awake and alert, however. REVIEW OF SYSTEMS: He has no complaints. PHYSICAL EXAM: Vital signs are normal. Chest demonstrates very poor breath sounds with wheezing, rales and rhonchi, and very poor breath sounds throughout. Cardiac exam demonstrates atrial fibrillation. ABDOMEN: Soft, nontender. IMPRESSION: 1. Exacerbation of chronic obstructive pulmonary disease. 2. Congestive heart failure. 3. Atrial fibrillation. 4. Alcoholism. 5. Carbon dioxide retention. PLAN: Continue on current program. We are working on a discharge plan.
--- NOTE | 2016-08-20 23:53 | PN ---
DATE OF SERVICE: 08/20/2016 CHIEF COMPLAINT: Exacerbation of COPD, CHF, atrial fibrillation and alcoholism. HISTORY OF PRESENT ILLNESS: The gentleman is still short of breath and has congestion. He always will be. We are working on discharge plan to a skilled nursing. PHYSICAL EXAM: Chest demonstrates poor breath sounds throughout. There are wheezes and rales. There are rhonchi scattered throughout both lung reyes. He has an AP diameter increase. Cardiac exam is normal. The abdomen is soft. IMPRESSION: 1. Exacerbation of chronic obstructive pulmonary disease. 2. Respiratory failure. 3. Atrial fibrillation. 4. Congestive heart failure. 5. Alcoholism. PLAN: Continue with supportive care and await skilled nursing opening. Advanced directives were discussed with the patient, and he is undecided.
[2016-08-21] MEDS: ACETAMINOPHEN TAB 325 MG TAB PO PRN ×2 (05:11→20:30)
[2016-08-21 06:12] LABS: Glucose,Whole Blood 168 mg/dL (75-99)
[2016-08-21] MEDS: RIVAROXABAN 10 MG TAB PO SCH (06:53)
[2016-08-21] MEDS: PANTOPRAZOLE 40 MG TABLET PO SCH (06:53)
[2016-08-21] MEDS: FUROSEMIDE 40 MG TAB PO SCH (06:54)
[2016-08-21] MEDS: METOPROLOL TARTRATE 50 MG TAB PO SCH ×2 (06:54→20:25)
[2016-08-21] MEDS: LISINOPRIL 20 MG TAB PO SCH (06:54)
[2016-08-21] MEDS: CEFUROXIME 250 MG TAB PO SCH ×2 (06:54→20:25)
[2016-08-21] MEDS: VERAPAMIL 40 MG TAB PO SCH ×3 (06:55→20:26)
[2016-08-21] MEDS: NICOTINE 21MG/24HR PATCH TRANSDERM SCH (06:55)
[2016-08-21] MEDS: TOBRAMYCIN 0.3% OPHTH DROPS 5 ML BTL BOTH EYES SCH ×4 (06:55→20:26)
[2016-08-21] MEDS: INSULIN LISPRO (humaLOG) 300 UNIT/3 ML VIAL SQ SCH ×4 (07:00→21:54)
[2016-08-21 07:12] LABS: ALT 94 U/L (21-72); AST 25 U/L (17-59); Alkaline Phosphatase 37 U/L (38-126); Anion Gap 7 mmol/L; Blood Urea Nitrogen 16 mg/dL (9-20); Calcium 8.8 mg/dL (8.4-10.2); Carbon Dioxide 33 mmol/L (22-30); Chloride 93 mmol/L (98-107); Glucose 168 mg/dL (74-99); Non-African American GFR(MDRD) >60 (>60 ml/min/1.73 sqM); Potassium 3.7 mmol/L (3.5-5.1); Sodium 133 mmol/L (137-145)
[2016-08-21] MEDS: IPRATROPIUM-ALBUTEROL 3 ML NEB INHALATION PRN ×4 (08:03→19:16)
[2016-08-21] MEDS: BUDESONIDE 0.5 MG/2 ML NEBU INHALATION SCH ×2 (08:04→19:16)
--- NOTE | 2016-08-21 10:57 | P.PN ---
Subjective 61-year-old seen and evaluated. is increasingly more awake and alert this morning is sitting up in bed taking a diet is feeding self the oxygen is been titrated down to 3 L Ativan has been stopped physical therapist lisseth noted. Patient requires the assist of 2 to maintain balance. Fatigues quickly with sitting exercises would benefit from subacute rehab sats on room air are 86 % and on 3 L are 92-91%. Patient continues to have atrial fibrillation variable ventricular response denying shortness of breath at rest denying chest pain. Discharge planning is in progress plan to transfer to [facility] facility subacute rehab when medically stable Objective - Vital Signs Vital signs: Vital Signs Temp 97.6 F 08/21/16 04:00 Pulse 96 08/21/16 08:15 Resp 18 08/21/16 07:45 BP 164/83 08/21/16 07:45 Pulse Ox 86 L 08/21/16 07:53 Intake & Output 08/20/16 08/21/16 08/21/16 18:59 06:59 18:59 Intake Total 250 118 Balance 250 118 Weight 88.5 kg Intake: Oral 250 118 Other: Voiding Method Diaper Diaper Diaper # Voids 1 2 - Exam GENERAL APPEARANCE: 61-year-old male looking older than stated age sitting up in bed feeding self diet patient oriented to person and place and event , in no acute distress. VITAL SIGNS reviewed : HEENT: Head is normocephalic and atraumatic. Pupils are equal and reactive. The nares are patent. Oropharynx is clear without lesions. NECK: Supple without lymphadenopathy. Traches midline. HEART: S1, S2. irregular monitor atrial fibrillation variable ventricular response no murmur noted LUNGS: coarse rhonchi upper airway lower lobes diminished bilaterally at the bases. A dry nonproductive cough. Currently 4L nasal cannula at rest no shortness of breath ABDOMEN: Soft, nontender, nondistended with good bowel sounds. No peritoneal signs. No palpable organomegaly or masses. Incontinent urine EXTREMITIES: Normal skin color and turgor. bilateral chronic venous stasis plus edema noted Radial pedal pulses are 2/4 bilaterally. - Labs CBC & Chem 7: 08/20/16 06:12 08/21/16 06:05 Labs: Abnormal Lab Results - Last 24 Hours (Table) 08/20/16 08/20/16 08/20/16 Range/Units 11:15 16:43 20:43 Sodium (137-145) mmol/L Chloride (98-107) mmol/L Carbon Dioxide (22-30) mmol/L Creatinine (0.66-1.25) mg/dL Glucose (74-99) mg/dL POC Glucose (mg/dL) 215 H 199 H 307 H (75-99) mg/dL ALT (21-72) U/L Alkaline Phosphatase (38-126) U/L Total Protein (6.3-8.2) g/dL Albumin (3.5-5.0) g/dL 08/21/16 08/21/16 Range/Units 06:05 06:10 Sodium 133 L (137-145) mmol/L Chloride 93 L (98-107) mmol/L Carbon Dioxide 33 H (22-30) mmol/L Creatinine 0.60 L (0.66-1.25) mg/dL Glucose 168 H (74-99) mg/dL POC Glucose (mg/dL) 168 H (75-99) mg/dL ALT 94 H (21-72) U/L Alkaline Phosphatase 37 L (38-126) U/L Total Protein 5.0 L (6.3-8.2) g/dL Albumin 2.8 L (3.5-5.0) g/dL Microbiology - Last 24 Hours (Table) 08/14/16 14:20 Blood Culture - Final Blood No Growth after 144 hours Assessment and Plan Plan: Impression Present on admission acute hypoxic respiratory failure suspect due to an acute exacerbation of COPD Present on admission elevated d-dimer with a CAT scan of the chest showing no evidence of a pulmonary emboli Chronic physical medical debility Elevated trnasaminitis present on admission Chronic alcoholism daily consumption Significant nicotine dependency greater than a 40 year history 1 pack a day currently active Present on admission bilateral conjunctivitis Present on admission elevated BNP Present on admission urinary tract infection Present on admission electrolyte abnormality hypo-natremia hypochloremia Chronic persistent atrial fibrillation with episodes of rapid ventricular response on no anticoagulation outpatient setting Present on admission mild protein calorie malnutrition suspect due to poor caloric intake due to chronic illness Pulmonary cachectic Type 2 diabetes insulin requiring hemoglobin A1c 5.7 Impending DTs due to alcohol withdrawal on CIWA protocol using Ativan Chronic toxic encephalopathy suspect alcohol-related Bilateral conjunctivitis Thrombocytopenia suspect alcohol-related Toxic metabolic encephalopathy suspect alcohol-related episodes steroids contributing to hyperglycemic episodes Plan DC CIWA protocol Respiratory treatments as ordered Attempt to titrate the O2 down DVT and GI prophylaxis Resume home meds as appropriate PT OT eval telephonic case manager to pursue the discharge plan patient would benefit from subacute rehab Monitor blood sugars while on steroids BiPAP at night as ordered The above dictated assessment and findings were discussed with dr dobbins Impression and the plan of care have been dictated as directed. Chichi Santizo nurse practitioner acting as a scribe for dr dobbins.
--- NOTE | 2016-08-21 11:31 | P.PN ---
Subjective This is a 61-year-old male patient being evaluated and examined today in the selective care unit this patient came into the emergency room with shortness of breath that had been increasing in severity over the last few days. Patient has had a nonproductive cough. Patient is also an active smoker and has a long- standing history of COPD. He also has a long-standing history of alcohol abuse. According to the chart the patient was found by a home health care worker that usually sees him every 3 days or so and he was covered in stool and urine and was in a wheelchair. The patient has been too weak to ambulate on his own and then ordering delivery food to be brought directly to him. In the ER the patient had EKG which showed sinus tachycardia. He did have a 1 L bolus of normal saline. He did have an elevated BNP as well as some conjunctivitis and was given eyedrops. The patient was started on BiPAP due to being hypoxic and shortness of breath. There is some controversy on his ABG results on whether they are accurate or not during the evaluation in the emergency room. Patient's d-dimer also was elevated and had a CT A of his chest to rule out pulmonary embolism. The CTA was negative for PE and showed the possibility of some congestive heart failure. The patient was admitted with bacterial conjunctivitis, acute respiratory failure, acute exacerbation of COPD, alcohol abuse, bilateral lower extremity edema, elevated d-dimer, elevated BNP, hyponatremia hypochloremia, debility and weakness, UTI, transaminitis, and diarrhea. On examination the patient is currently on 3 L of oxygen via nasal cannula. Patient has a cough however its nonproductive. Patient continues to shake due to withdrawing from alcohol. Patient is on CIWA protocol. The patient is much more alert and awake than previous days. Patient states that he did use BiPAP overnight however just for a few hours as he could not tolerate it all night. Objective - Vital Signs Vital signs: Vital Signs Temp 97.6 F 08/21/16 04:00 Pulse 94 08/21/16 11:10 Resp 18 08/21/16 07:45 BP 164/83 08/21/16 07:45 Pulse Ox 86 L 08/21/16 07:53 Intake & Output 08/20/16 08/21/16 08/21/16 18:59 06:59 18:59 Intake Total 250 118 Balance 250 118 Weight 88.5 kg Intake: Oral 250 118 Other: Voiding Method Diaper Diaper Diaper # Voids 1 2 - Exam GENERAL EXAM: Alert, active, comfortable in no apparent distress. HEAD: Normocephalic. EYES: Normal reaction of pupils, equal size. Some purulent conjunctivitis noted NOSE: Clear with pink turbinates. THROAT: No erythema or exudates. NECK: No masses, no JVD. CHEST: No chest wall deformity. LUNGS: Decreased air entry, scattered rhonchi and wheezes noted throughout. Bases diminished CVS: S1 and S2 normal with no audible mumurs, regular rhythm. ABDOMEN: No hepatosplenomegaly, normal bowel sounds, no guarding or rigidity. EXTREMITIES: +1-2 edema noted, pedal pulses palpable. SKIN: No rashes CENTRAL NERVOUS SYSTEM: No focal deficits, tone is normal in all 4 extremities. - Labs CBC & Chem 7: 08/20/16 06:12 08/21/16 06:05 Labs: Abnormal Lab Results - Last 24 Hours (Table) 08/20/16 08/20/16 08/21/16 Range/Units 16:43 20:43 06:05 Sodium 133 L (137-145) mmol/L Chloride 93 L (98-107) mmol/L Carbon Dioxide 33 H (22-30) mmol/L Creatinine 0.60 L (0.66-1.25) mg/dL Glucose 168 H (74-99) mg/dL POC Glucose (mg/dL) 199 H 307 H (75-99) mg/dL ALT 94 H (21-72) U/L Alkaline Phosphatase 37 L (38-126) U/L Total Protein 5.0 L (6.3-8.2) g/dL Albumin 2.8 L (3.5-5.0) g/dL 08/21/16 Range/Units 06:10 Sodium (137-145) mmol/L Chloride (98-107) mmol/L Carbon Dioxide (22-30) mmol/L Creatinine (0.66-1.25) mg/dL Glucose (74-99) mg/dL POC Glucose (mg/dL) 168 H (75-99) mg/dL ALT (21-72) U/L Alkaline Phosphatase (38-126) U/L Total Protein (6.3-8.2) g/dL Albumin (3.5-5.0) g/dL Microbiology - Last 24 Hours (Table) 08/14/16 14:20 Blood Culture - Final Blood No Growth after 144 hours Assessment and Plan Plan: Assessment Acute hypoxic respiratory failure Acute exacerbation of COPD Bilateral lower extremity edema Elevated d-dimer Elevated BNP Hyponatremia hypochloremia Urinary tract infection POA Transaminitis Bilateral conjunctivitis Alcohol abuse Medical debility DTs due to alcohol withdrawal. Nicotine dependence Toxic metabolic encephalopathy Plan Patient could be cleared for discharge from a pulmonary standpoint however may require initiation of home oxygen use. Medications have been reviewed and will be continued as ordered. Continue to try to wean oxygen down. We'll closely monitor I's snd O's. Continue with the current nebulizer treatments and IV antibiotics. Continue with antibiotic eyedrops. Continue with scheduled IV steroids. Initiate and encourage incentive spirometer. BiPAP at night and when necessary throughout the day. Repeat labs in the morning. CIWA protocol as ordered. Replace electrolytes per protocol. We will continue to monitor labs/results and adjust treatment as necessary. I performed an examination of the patient and discussed their management with the nurse practitioner. I have reviewed the nurse practitioner's note and agree with the documented findings and plan of care.
[2016-08-21 11:35] LABS: Glucose,Whole Blood 280 mg/dL (75-99)
[2016-08-21] MEDS: THIAMINE 100 MG TAB PO SCH (12:21)
[2016-08-21 16:23] LABS: Glucose,Whole Blood 237 mg/dL (75-99)
[2016-08-21] MEDS: ATORVASTATIN 40 MG TAB PO SCH (20:25)
[2016-08-21 20:47] LABS: Glucose,Whole Blood 229 mg/dL (75-99)
[2016-08-22 05:36] LABS: Glucose,Whole Blood 203 mg/dL (75-99)
[2016-08-22] MEDS: PANTOPRAZOLE 40 MG TABLET PO SCH (06:24)
[2016-08-22] MEDS: INSULIN LISPRO (humaLOG) 300 UNIT/3 ML VIAL SQ SCH ×4 (06:24→21:13)
[2016-08-22] MEDS: NICOTINE 21MG/24HR PATCH TRANSDERM SCH (06:24)
[2016-08-22] MEDS: RIVAROXABAN 10 MG TAB PO SCH (06:25)
[2016-08-22 07:39] LABS: ALT 71 U/L (21-72); AST 20 U/L (17-59); Alkaline Phosphatase 36 U/L (38-126); Anion Gap 8 mmol/L; Blood Urea Nitrogen 17 mg/dL (9-20); Calcium 8.8 mg/dL (8.4-10.2); Carbon Dioxide 31 mmol/L (22-30); Chloride 97 mmol/L (98-107); Glucose 211 mg/dL (74-99); Non-African American GFR(MDRD) >60 (>60 ml/min/1.73 sqM); Potassium 3.5 mmol/L (3.5-5.1); Sodium 136 mmol/L (137-145); Total Bilirubin 1.2 mg/dL (0.2-1.3); Total Protein 5.3 g/dL (6.3-8.2)
[2016-08-22] MEDS: IPRATROPIUM-ALBUTEROL 3 ML NEB INHALATION PRN ×2 (08:04→16:32)
[2016-08-22] MEDS: BUDESONIDE 0.5 MG/2 ML NEBU INHALATION SCH ×2 (08:04→20:17)
[2016-08-22] MEDS: TOBRAMYCIN 0.3% OPHTH DROPS 5 ML BTL BOTH EYES SCH ×4 (09:38→21:14)
[2016-08-22] MEDS: FUROSEMIDE 40 MG TAB PO SCH (09:38)
[2016-08-22] MEDS: LISINOPRIL 20 MG TAB PO SCH (09:38)
[2016-08-22] MEDS: VERAPAMIL 40 MG TAB PO SCH ×3 (09:38→21:12)
[2016-08-22] MEDS: CEFUROXIME 250 MG TAB PO SCH ×2 (09:38→21:12)
[2016-08-22] MEDS: METOPROLOL TARTRATE 50 MG TAB PO SCH ×2 (09:38→21:12)
--- NOTE | 2016-08-22 10:35 | P.PN ---
Subjective This is a 61-year-old male patient being evaluated and examined today in the selective care unit this patient came into the emergency room with shortness of breath that had been increasing in severity over the last few days. Patient has had a nonproductive cough. Patient is also an active smoker and has a long- standing history of COPD. He also has a long-standing history of alcohol abuse. According to the chart the patient was found by a home health care worker that usually sees him every 3 days or so and he was covered in stool and urine and was in a wheelchair. The patient has been too weak to ambulate on his own and then ordering delivery food to be brought directly to him. In the ER the patient had EKG which showed sinus tachycardia. He did have a 1 L bolus of normal saline. He did have an elevated BNP as well as some conjunctivitis and was given eyedrops. The patient was started on BiPAP due to being hypoxic and shortness of breath. There is some controversy on his ABG results on whether they are accurate or not during the evaluation in the emergency room. Patient's d-dimer also was elevated and had a CT A of his chest to rule out pulmonary embolism. The CTA was negative for PE and showed the possibility of some congestive heart failure. The patient was admitted with bacterial conjunctivitis, acute respiratory failure, acute exacerbation of COPD, alcohol abuse, bilateral lower extremity edema, elevated d-dimer, elevated BNP, hyponatremia hypochloremia, debility and weakness, UTI, transaminitis, and diarrhea. On examination the patient is currently on 2 L of oxygen via nasal cannula. Patient has a congested cough however patient is unable to bring up secretions. Patient continues to shake due to withdrawing from alcohol. Patient is on CIWA protocol. The patient is much more alert and awake than previous days. Patient states that he did not use the BiPAP overnight and he does not want to try it again. Objective - Vital Signs Vital signs: Vital Signs Temp 97.1 F L 08/22/16 08:38 Pulse 90 08/22/16 08:38 Resp 18 08/22/16 08:38 BP 131/84 08/22/16 08:38 Pulse Ox 99 08/22/16 08:38 Intake & Output 08/21/16 08/22/16 08/22/16 18:59 06:59 18:59 Intake Total 592 25 Balance 592 25 Weight 84 kg Intake: Oral 592 25 Other: Voiding Method Diaper Diaper # Voids 1 2 - Exam GENERAL EXAM: Alert, active, comfortable in no apparent distress. HEAD: Normocephalic. EYES: Normal reaction of pupils, equal size. Some purulent conjunctivitis noted NOSE: Clear with pink turbinates. THROAT: No erythema or exudates. NECK: No masses, no JVD. CHEST: No chest wall deformity. LUNGS: Decreased air entry, scattered rhonchi and wheezes noted throughout. Bases diminished CVS: S1 and S2 normal with no audible mumurs, regular rhythm. ABDOMEN: No hepatosplenomegaly, normal bowel sounds, no guarding or rigidity. EXTREMITIES: +1-2 edema noted, pedal pulses palpable. SKIN: No rashes CENTRAL NERVOUS SYSTEM: No focal deficits, tone is normal in all 4 extremities. - Labs CBC & Chem 7: 08/20/16 06:12 08/22/16 06:26 Labs: Abnormal Lab Results - Last 24 Hours (Table) 08/21/16 08/21/16 08/21/16 Range/Units 11:31 16:21 20:46 Sodium (137-145) mmol/L Chloride (98-107) mmol/L Carbon Dioxide (22-30) mmol/L Creatinine (0.66-1.25) mg/dL Glucose (74-99) mg/dL POC Glucose (mg/dL) 280 H 237 H 229 H (75-99) mg/dL Alkaline Phosphatase (38-126) U/L Total Protein (6.3-8.2) g/dL Albumin (3.5-5.0) g/dL 08/22/16 08/22/16 Range/Units 05:35 06:26 Sodium 136 L (137-145) mmol/L Chloride 97 L (98-107) mmol/L Carbon Dioxide 31 H (22-30) mmol/L Creatinine 0.52 L (0.66-1.25) mg/dL Glucose 211 H (74-99) mg/dL POC Glucose (mg/dL) 203 H (75-99) mg/dL Alkaline Phosphatase 36 L (38-126) U/L Total Protein 5.3 L (6.3-8.2) g/dL Albumin 2.9 L (3.5-5.0) g/dL Microbiology - Last 24 Hours (Table) 08/21/16 11:50 Gram Stain - Preliminary Sputum Assessment and Plan Plan: Assessment Acute hypoxic respiratory failure Acute exacerbation of COPD Bilateral lower extremity edema Elevated d-dimer Elevated BNP Hyponatremia hypochloremia Urinary tract infection POA Transaminitis Bilateral conjunctivitis Alcohol abuse Medical debility DTs due to alcohol withdrawal. Nicotine dependence Toxic metabolic encephalopathy Plan Patient could be cleared for discharge from a pulmonary standpoint however may require initiation of home oxygen use. Medications have been reviewed and will be continued as ordered. Continue to try to wean oxygen down. Add Mucinex to help with secretions as well as a flutter valve. We'll closely monitor I's snd O's. Continue with the current nebulizer treatments and IV antibiotics. Continue with antibiotic eyedrops. Continue with scheduled IV steroids. Initiate and encourage incentive spirometer. BiPAP at night and when necessary throughout the day. Repeat labs in the morning. CIWA protocol as ordered. Replace electrolytes per protocol. We will continue to monitor labs/results and adjust treatment as necessary. I performed an examination of the patient and discussed their management with the nurse practitioner. I have reviewed the nurse practitioner's note and agree with the documented findings and plan of care.
[2016-08-22 11:32] LABS: Glucose,Whole Blood 304 mg/dL (75-99)
[2016-08-22] MEDS: guaiFENesin 600 MG TABLET.ER PO SCH ×2 (12:19→21:12)
[2016-08-22] MEDS: THIAMINE 100 MG TAB PO SCH (12:19)
[2016-08-22] MEDS ORDERED: LACTULOSE 20 GM/30 ML CUP PO ONE (14:15)
--- NOTE | 2016-08-22 15:36 | P.PN ---
Subjective A 61-year-old seen and evaluated this morning the patient continues to improved the oxygen is being titrated down. Patient currently sitting up in a chair is increasingly more awake and more alert. The discharge plan is in progress. Patient's to be transferred to subacute rehab when medically stable. Patient has refused to wear the BiPAP overnight. Currently the nasal cannula O2 is been titrated down to 2 L keeping a sat of 93%. Objective - Vital Signs Vital signs: Vital Signs Temp 97.4 F L 08/22/16 12:19 Pulse 78 08/22/16 12:19 Resp 18 08/22/16 12:19 BP 95/74 08/22/16 12:19 Pulse Ox 94 L 08/22/16 13:31 Intake & Output 08/21/16 08/22/16 08/22/16 18:59 06:59 18:59 Intake Total 592 422 Balance 592 422 Weight 84 kg Intake: IV 160 Sodium Chloride 0.9% 1, 160 000 ml @ 20 mls/hr IV . Q24H [facility] Rx#:[id number] Oral 592 262 Other: Voiding Method Diaper Diaper Diaper # Voids 1 2 - Exam GENERAL APPEARANCE: 61-year-old male looking older than stated age sitting up in a chair oriented to person and place and event , in no acute distress. VITAL SIGNS reviewed : HEENT: Head is normocephalic and atraumatic. Pupils are equal and reactive. The nares are patent. Oropharynx is clear without lesions. NECK: Supple without lymphadenopathy. Traches midline. HEART: S1, S2. irregular monitor atrial fibrillation variable ventricular response no murmur noted LUNGS: coarse rhonchi upper airway lower lobes diminished bilaterally at the bases. Currently 2l nasal cannula at rest no shortness of breath ABDOMEN: Soft, nontender, nondistended with good bowel sounds. No peritoneal signs. No palpable organomegaly or masses. Incontinent urine no stool EXTREMITIES: Normal skin color and turgor. bilateral chronic venous stasis plus edema noted Radial pedal pulses are 2/4 bilaterally. - Labs CBC & Chem 7: 08/20/16 06:12 08/22/16 06:26 Labs: Abnormal Lab Results - Last 24 Hours (Table) 08/21/16 08/21/16 08/22/16 Range/Units 16:21 20:46 05:35 Sodium (137-145) mmol/L Chloride (98-107) mmol/L Carbon Dioxide (22-30) mmol/L Creatinine (0.66-1.25) mg/dL Glucose (74-99) mg/dL POC Glucose (mg/dL) 237 H 229 H 203 H (75-99) mg/dL Alkaline Phosphatase (38-126) U/L Total Protein (6.3-8.2) g/dL Albumin (3.5-5.0) g/dL 08/22/16 08/22/16 Range/Units 06:26 11:29 Sodium 136 L (137-145) mmol/L Chloride 97 L (98-107) mmol/L Carbon Dioxide 31 H (22-30) mmol/L Creatinine 0.52 L (0.66-1.25) mg/dL Glucose 211 H (74-99) mg/dL POC Glucose (mg/dL) 304 H (75-99) mg/dL Alkaline Phosphatase 36 L (38-126) U/L Total Protein 5.3 L (6.3-8.2) g/dL Albumin 2.9 L (3.5-5.0) g/dL Microbiology - Last 24 Hours (Table) 08/21/16 11:50 Gram Stain - Preliminary Sputum Sputum Culture - Preliminary Gram Neg Bacilli Assessment and Plan Plan: Impression Present on admission acute hypoxic respiratory failure suspect due to an acute exacerbation of COPD Present on admission elevated d-dimer with a CAT scan of the chest showing no evidence of a pulmonary emboli Chronic physical medical debility Elevated trnasaminitis present on admission Chronic alcoholism daily consumption Significant nicotine dependency greater than a 40 year history 1 pack a day currently active Present on admission bilateral conjunctivitis Present on admission elevated BNP Present on admission urinary tract infection Present on admission electrolyte abnormality hypo-natremia hypochloremia Chronic persistent atrial fibrillation with episodes of rapid ventricular response on no anticoagulation outpatient setting Present on admission mild protein calorie malnutrition suspect due to poor caloric intake due to chronic illness Pulmonary cachectic Type 2 diabetes insulin requiring hemoglobin A1c 5.7 Impending DTs due to alcohol withdrawal on CIWA protocol using Ativan Chronic toxic encephalopathy suspect alcohol-related Bilateral conjunctivitis Thrombocytopenia suspect alcohol-related Toxic metabolic encephalopathy suspect alcohol-related episodes steroids contributing to hyperglycemic episodes Plan DC CIWA protocol Respiratory treatments as ordered Attempt to titrate the O2 down DVT and GI prophylaxis Resume home meds as appropriate PT OT eval configuration release manager to pursue the discharge plan patient would benefit from subacute rehab possible discharge within the next 24 hours Monitor blood sugars while on steroids BiPAP at night as ordered The above dictated assessment and findings were discussed with dr dobbins Impression and the plan of care have been dictated as directed. Chichi Santizo nurse practitioner acting as a scribe for dr dobbins.
[2016-08-22] MEDS: ACETAMINOPHEN TAB 325 MG TAB PO PRN (16:21)
[2016-08-22 16:46] LABS: Glucose,Whole Blood 274 mg/dL (75-99)
[2016-08-22 20:30] LABS: Glucose,Whole Blood 265 mg/dL (75-99)
[2016-08-22] MEDS: DOCUSATE 100 MG CAP PO SCH (21:12)
[2016-08-22] MEDS: ATORVASTATIN 40 MG TAB PO SCH (21:13)
--- NOTE | 2016-08-22 21:49 | PN ---
DATE OF SERVICE: 08/22/2016 CHIEF COMPLAINT: Acute respiratory failure, weakness and failure to thrive, alcoholism. HISTORY OF PRESENT ILLNESS: This gentleman is doing fairly well, but he is definitely very weak and not ambulating well. He seems to be oriented and alert now and he is awaiting discharge planning. PHYSICAL EXAMINATION: Breath sounds are extremely poor. There are rales in the bases. Cardiac exam is normal. ABDOMEN: Soft, nontender. IMPRESSION: 1. Exacerbation of chronic obstructive pulmonary disease. 2. Alcoholism. 3. Atrial fibrillation. PLAN: Await discharge plan, which still is not in place.
[2016-08-23 06:02] LABS: Glucose,Whole Blood 245 mg/dL (75-99)
[2016-08-23] MEDS: RIVAROXABAN 10 MG TAB PO SCH (06:38)
[2016-08-23] MEDS: PANTOPRAZOLE 40 MG TABLET PO SCH (06:38)
[2016-08-23] MEDS: INSULIN LISPRO (humaLOG) 300 UNIT/3 ML VIAL SQ SCH ×2 (06:39→11:50)
[2016-08-23 07:00] LABS: ALT 56 U/L (21-72); AST 16 U/L (17-59); Alkaline Phosphatase 39 U/L (38-126); Anion Gap 6 mmol/L; Blood Urea Nitrogen 16 mg/dL (9-20); Calcium 8.6 mg/dL (8.4-10.2); Carbon Dioxide 34 mmol/L (22-30); Chloride 98 mmol/L (98-107); Glucose 238 mg/dL (74-99); Non-African American GFR(MDRD) >60 (>60 ml/min/1.73 sqM); Potassium 3.6 mmol/L (3.5-5.1); Sodium 138 mmol/L (137-145); Total Bilirubin 0.7 mg/dL (0.2-1.3); Total Protein 5.3 g/dL (6.3-8.2)
[2016-08-23] MEDS ORDERED: POLYETHYLENE GLYCOL 3350 17 GM POWD.PACK PO SCH (09:00)
[2016-08-23] MEDS: CEFUROXIME 250 MG TAB PO SCH (09:05)
[2016-08-23] MEDS: METOPROLOL TARTRATE 50 MG TAB PO SCH (09:06)
[2016-08-23] MEDS: guaiFENesin 600 MG TABLET.ER PO SCH (09:06)
[2016-08-23] MEDS: VERAPAMIL 40 MG TAB PO SCH (09:06)
[2016-08-23] MEDS: LISINOPRIL 20 MG TAB PO SCH (09:06)
[2016-08-23] MEDS: FUROSEMIDE 40 MG TAB PO SCH (09:06)
[2016-08-23] MEDS: NICOTINE 21MG/24HR PATCH TRANSDERM SCH (09:06)
[2016-08-23] MEDS: TOBRAMYCIN 0.3% OPHTH DROPS 5 ML BTL BOTH EYES SCH (09:06)
[2016-08-23] MEDS: DOCUSATE 100 MG CAP PO SCH (09:06)
[2016-08-23] MEDS: BUDESONIDE 0.5 MG/2 ML NEBU INHALATION SCH (09:10)
[2016-08-23] MEDS: ACETAMINOPHEN TAB 325 MG TAB PO PRN (09:12)
[2016-08-23 09:29] VITALS: RESP 18
--- NOTE | 2016-08-23 10:27 | P.PN ---
Subjective This is a 61-year-old male patient being evaluated and examined today in the selective care unit this patient came into the emergency room with shortness of breath that had been increasing in severity over the last few days. Patient has had a nonproductive cough. Patient is also an active smoker and has a long- standing history of COPD. He also has a long-standing history of alcohol abuse. According to the chart the patient was found by a home health care worker that usually sees him every 3 days or so and he was covered in stool and urine and was in a wheelchair. The patient has been too weak to ambulate on his own and then ordering delivery food to be brought directly to him. In the ER the patient had EKG which showed sinus tachycardia. He did have a 1 L bolus of normal saline. He did have an elevated BNP as well as some conjunctivitis and was given eyedrops. The patient was started on BiPAP due to being hypoxic and shortness of breath. There is some controversy on his ABG results on whether they are accurate or not during the evaluation in the emergency room. Patient's d-dimer also was elevated and had a CT A of his chest to rule out pulmonary embolism. The CTA was negative for PE and showed the possibility of some congestive heart failure. The patient was admitted with bacterial conjunctivitis, acute respiratory failure, acute exacerbation of COPD, alcohol abuse, bilateral lower extremity edema, elevated d-dimer, elevated BNP, hyponatremia hypochloremia, debility and weakness, UTI, transaminitis, and diarrhea. On examination the patient is currently on 2 L of oxygen via nasal cannula he will require oxygen at discharge. Patient has a congested cough however patient is unable to bring up secretions. Patient continues to shake due to withdrawing from alcohol. Patient states that he did not use the BiPAP overnight and he does not want to try it again. Patient states he [facility] Objective - Vital Signs Vital signs: Vital Signs Temp 98.7 F 08/23/16 09:06 Pulse 68 08/23/16 09:16 Resp 18 08/23/16 09:06 BP 118/67 08/23/16 09:06 Pulse Ox 94 L 08/23/16 09:11 Intake & Output 08/22/16 08/23/16 08/23/16 18:59 06:59 18:59 Intake Total 522 600 118 Output Total 200 Balance 322 600 118 Weight 105.5 kg Intake: IV 160 Sodium Chloride 0.9% 1, 160 000 ml @ 20 mls/hr IV . Q24H [facility] Rx#:[id number] Oral 362 600 118 Output: Urine 200 Other: Voiding Method Diaper Diaper Diaper # Voids 3 - Exam GENERAL EXAM: Alert, active, comfortable in no apparent distress. HEAD: Normocephalic. EYES: Normal reaction of pupils, equal size. Some purulent conjunctivitis noted NOSE: Clear with pink turbinates. THROAT: No erythema or exudates. NECK: No masses, no JVD. CHEST: No chest wall deformity. LUNGS: Decreased air entry, scattered rhonchi and wheezes noted throughout. Bases diminished CVS: S1 and S2 normal with no audible mumurs, regular rhythm. ABDOMEN: No hepatosplenomegaly, normal bowel sounds, no guarding or rigidity. EXTREMITIES: +1-2 edema noted, pedal pulses palpable. SKIN: No rashes CENTRAL NERVOUS SYSTEM: No focal deficits, tone is normal in all 4 extremities. - Labs CBC & Chem 7: 08/20/16 06:12 08/23/16 06:07 Labs: Abnormal Lab Results - Last 24 Hours (Table) 08/22/16 08/22/16 08/22/16 Range/Units 11:29 16:43 20:29 Carbon Dioxide (22-30) mmol/L Creatinine (0.66-1.25) mg/dL Glucose (74-99) mg/dL POC Glucose (mg/dL) 304 H 274 H 265 H (75-99) mg/dL AST (17-59) U/L Total Protein (6.3-8.2) g/dL Albumin (3.5-5.0) g/dL 08/23/16 08/23/16 Range/Units 06:00 06:07 Carbon Dioxide 34 H (22-30) mmol/L Creatinine 0.50 L (0.66-1.25) mg/dL Glucose 238 H (74-99) mg/dL POC Glucose (mg/dL) 245 H (75-99) mg/dL AST 16 L (17-59) U/L Total Protein 5.3 L (6.3-8.2) g/dL Albumin 2.9 L (3.5-5.0) g/dL Microbiology - Last 24 Hours (Table) 08/21/16 11:50 Gram Stain - Preliminary Sputum Sputum Culture - Preliminary Gram Neg Bacilli Assessment and Plan Plan: Assessment Acute hypoxic respiratory failure Acute exacerbation of COPD Bilateral lower extremity edema Elevated d-dimer Elevated BNP Hyponatremia hypochloremia Urinary tract infection POA Transaminitis Bilateral conjunctivitis Alcohol abuse Medical debility DTs due to alcohol withdrawal. Nicotine dependence Toxic metabolic encephalopathy Plan Patient cleared for discharge from a pulmonary standpoint. Patient does require initiation of home oxygen use. Medications have been reviewed and will be continued as ordered. Continue to try to wean oxygen down. Continue with Mucinex to help with secretions as well as a flutter valve. We'll closely monitor I's snd O's. Continue with the current nebulizer treatments and antibiotics. Continue with antibiotic eyedrops. Continue with scheduled IV steroids. Initiate and encourage incentive spirometer. CIWA protocol as ordered. Replace electrolytes per protocol. We will continue to monitor labs/ results and adjust treatment as necessary. I performed an examination of the patient and discussed their management with the nurse practitioner. I have reviewed the nurse practitioner's note and agree with the documented findings and plan of care.
--- NOTE | 2016-08-23 10:44 | P.DS ---
Providers Date of admission: 08/14/16 18:45 Expected date of discharge: 08/23/16 Attending physician: Danny Morse Consults: 08/14/16 18:45 Consult Physician Urgent Consulting Provider: Cristofer Pandya Consult Reason/Comments: resp failure Do you want consulting provider notified?: Yes 08/17/16 08:38 Consult Physician Urgent Consulting Provider: Wesly Bellamy Consult Reason/Comments: afib rvr Do you want consulting provider notified?: Yes Primary care physician: Danny Morse Hospital Course: A 61-year-old gentleman looking older than stated age was admitted on the day of admission to the emergency room via the EMS system after patient was found by the home health care worker to be sitting in a chair covered in stool and urine. Patient was too weak to ambulate on his own. Patient in the emergency room the EKG showed sinus tachycardic. Patient was given a bolus of normal saline. Patient was hypotensive. Patient had elevated BNP. Additionally patient was noted to have bilateral conjunctivitis. Patient was unkempt . Patient was hypoxic. Patient was placed on BiPAP and admitted to the intensive care unit. Patient did have a CAT scan of the chest to rule out a pulmonary emboli. The CAT scan of the chest was negative for pulmonary emboli it did show possibility of congestive heart failure. Patient also has a history of chronic alcoholism daily consumption. Patient was placed on CIWA protocol using Ativan for impending DTs. Patient needed to be placed on high flow nasal cannula to keep a sat greater than 90 and was monitored closely in the intensive care unit. Patient did have episodes o of atrial fibrillation with RVR. Patient was treated with rate control meds. Patient was monitored closely in the intensive care unit and once stable was able to be transferred to a stepdown unit patient was seen by physical and occupational therapy. Patient was felt to be appropriate candidate for subacute rehab. It's noted the patient does have chronic persistent atrial fibrillation and on admission patient was on no anticoagulation therapy. Anticoagulation therapy was initiated this admission patient was placed on Xarelto. To the course of the hospitalization patient clinically improved. Patient was verbalizing wanting to be admitted to a F facility felt that he could not take care of himself at home. At the time of discharge the patient's oxygen level was titrated down to 2 L in keeping a sat between 93 and 94%. Wall consulting physicians patient was felt to be appropriate to be [facility] Impression Present on admission acute hypoxic respiratory failure suspect due to an acute exacerbation of COPD Present on admission elevated d-dimer with a CAT scan of the chest showing no evidence of a pulmonary emboli Chronic physical medical debility Elevated trnasaminitis present on admission Chronic alcoholism daily consumption Significant nicotine dependency greater than a 40 year history 1 pack a day currently active Present on admission bilateral conjunctivitis Present on admission elevated BNP Present on admission urinary tract infection Present on admission electrolyte abnormality hypo-natremia hypochloremia Chronic persistent atrial fibrillation with episodes of rapid ventricular response on no anticoagulation outpatient setting Present on admission mild protein calorie malnutrition suspect due to poor caloric intake due to chronic illness Pulmonary cachectic Type 2 diabetes insulin requiring hemoglobin A1c 5.7 Impending DTs due to alcohol withdrawal on CIWA protocol using Ativan Chronic toxic encephalopathy suspect alcohol-related Bilateral conjunctivitis Thrombocytopenia suspect alcohol-related Toxic metabolic encephalopathy suspect alcohol-related episodes steroids contributing to hyperglycemic episodes The above dictated assessment and findings were discussed with dr shilpi Fierro and the plan of care have been dictated as directed. Chichi Santizo nurse practitioner acting as a scribe for dr morse. Patient Condition at Discharge: Fair Plan - Discharge Summary New Discharge Prescriptions: Cefuroxime [Ceftin] 500 mg PO BID #20 tab rOPINIRole HCL [Requip] 0.5 mg PO HS #30 tab Discharge Medication List Albuterol Inhaler [Ventolin Hfa Inhaler] 2 puff INHALATION RT-Q6H PRN 08/25/15 [ History] Ergocalciferol [Vitamin D2 (DRISDOL)] 50,000 unit PO QMONTH 08/25/15 [History] Digoxin [Lanoxin] 125 mcg PO DAILY tab 09/06/15 [Rx] Insuln Asp Prt/Insulin Aspart [NovoLOG MIX 70-30 VIAL] 18 unit SQ AC-SUPPER vial 09/06/15 [Rx] Insuln Asp Prt/Insulin Aspart [NovoLOG MIX 70-30 VIAL] 30 unit SQ AC-BRKFST vial 09/06/15 [Rx] Pantoprazole [Protonix] 40 mg PO AC-BRKFST tablet. 09/06/15 [Rx] Flunisolide [Aerospan] 2 puff INHALATION RT-BID 12/14/15 [History] Acetaminophen Tab [Tylenol] 650 mg PO Q4HR PRN tab 08/23/16 [Rx] Atorvastatin [Lipitor] 40 mg PO HS tab 08/23/16 [Rx] Budesonide [Pulmicort] 0.5 mg INHALATION RT-BID neb 08/23/16 [Rx] Cefuroxime [Ceftin] 500 mg PO BID #20 tab 08/23/16 [Rx] Docusate [Colace] 100 mg PO BID cap 08/23/16 [Rx] Furosemide [Lasix] 40 mg PO DAILY tab 08/23/16 [Rx] INSULIN LISPRO (humaLOG) [humaLOG (formulary)] 0 unit SQ ACHS vial 08/23/16 [Rx ] Ipratropium-Albuterol Nebulize [Duoneb 0.5 mg-3 mg/3 ml Soln] 3 ml INHALATION RT -Q4H PRN neb 08/23/16 [Rx] Lisinopril [Zestril] 40 mg PO DAILY tab 08/23/16 [Rx] Metoprolol Tartrate [Lopressor] 50 mg PO BID tab 08/23/16 [Rx] Nicotine 21Mg/24Hr Patch [Habitrol] 1 patch TRANSDERM DAILY patch 08/23/16 [Rx] Pantoprazole [Protonix] 40 mg PO AC-BRKFST tab 08/23/16 [Rx] Rivaroxaban [Xarelto] 20 mg PO W/BRKFST tab 08/23/16 [Rx] Thiamine [Vitamin B-1] 100 mg PO DAILY@1200 tab 08/23/16 [Rx] Tobramycin 0.3% Ophth Soln [Tobrex 0.3% Ophth Soln] 1 drops BOTH EYES QID bottle 08/23/16 [Rx] Verapamil [Isoptin] 40 mg PO TID tab 08/23/16 [Rx] guaiFENesin [Mucinex] 1,200 mg PO Q12HR tab 08/23/16 [Rx] rOPINIRole HCL [Requip] 0.5 mg PO HS #30 tab 08/23/16 [Rx] Follow up Appointment(s)/Referral(s): Danny Morse MD [Primary Care Provider] - 1-2 days Cristofer Pandya MD [STAFF PHYSICIAN] - 1 Week Discharge Disposition: TRANSFER TO [facility]
[2016-08-23 11:05] VITALS: BMI 32.4
[2016-08-23 11:27] VITALS: BP 122/73; PULSE 70; TEMP 98.1
[2016-08-23 11:41] LABS: Glucose,Whole Blood 291 mg/dL (75-99)
[2016-08-23] MEDS: THIAMINE 100 MG TAB PO SCH (11:50)
--- NOTE | 2016-08-23 19:35 | PN ---
DATE OF SERVICE: 08/23/2016 CHIEF COMPLAINT: Mental status changes, exacerbation of COPD, delirium, alcoholism and arrhythmia. HISTORY OF PRESENT ILLNESS: This gentleman is fairly stable and going to be [facility] to [facility] today. This will be arranged by the nurse practitioner. We will follow him there.
== END 2016-08-23 12:54 | DRG 190 ==
LOC: EC 13:05 → 6ICU 18:45 → 6SEL 08-18 16:33
PROVIDERS: ADMIT Family Medicine; ATTEND Family Medicine
DX: J44.1 Chronic obstructive pulmonary disease with (acute) exacerbation (principal); J96.01 Acute respiratory failure with hypoxia; G92 Toxic encephalopathy; F10.231 Alcohol dependence with withdrawal delirium; R64 Cachexia; E87.2 Acidosis; I48.1 Persistent atrial fibrillation; I11.0 Hypertensive heart disease with heart failure; D69.6 Thrombocytopenia, unspecified; I50.9 Heart failure, unspecified; E86.0 Dehydration; I48.0 Paroxysmal atrial fibrillation; E44.1 Mild protein-calorie malnutrition; E87.1 Hypo-osmolality and hyponatremia; J98.11 Atelectasis; N39.0 Urinary tract infection, site not specified; I69.359 Hemiplegia and hemiparesis following cerebral infarction affecting unspecified side; Z79.4 Long term (current) use of insulin; E87.8 Other disorders of electrolyte and fluid balance, not elsewhere classified; F17.200 Nicotine dependence, unspecified, uncomplicated; H10.89 Other conjunctivitis; H91.90 Unspecified hearing loss, unspecified ear; I48.2 Chronic atrial fibrillation; K21.9 Gastro-esophageal reflux disease without esophagitis; R62.7 Adult failure to thrive; Z79.899 Other long term (current) drug therapy; Z85.46 Personal history of malignant neoplasm of prostate; T38.0X5A Adverse effect of glucocorticoids and synthetic analogues, initial encounter; E11.65 Type 2 diabetes mellitus with hyperglycemia
CPT/HCPCS: 36415; 36600; 71010; 71275; 80053; 80162; 81001; 82140; 82550; 82553; 82805; 83036; 83735; 83880; 84100; 84484; 85025; 85379; 85610; 85730; 87040; 87070; 87077; 87086; 87186; 87205; 87324; 93005; 93306; 94640; 94660; 94667; 94760; 96365; 96366; 96367; 96375; 96376; 99285

== ENCOUNTER 2016-11-16 02:20 | Emergency (ER) | payer OTHER ==
[2016-11-16 02:31] VITALS: RESP 18
[2016-11-16 02:41] LABS: Glucose,Whole Blood 441 mg/dL (75-99)
[2016-11-16] MEDS ORDERED: INSULIN REGULAR 100 UNIT/ML VIAL SQ STA ×2 (02:48→07:11)
[2016-11-16] MEDS ORDERED: SODIUM CHLORIDE 0.9% 1,000 ML IV ONE ×3 (02:48→07:11)
[2016-11-16 03:01] LABS: Basophils # (A) 0.1 k/uL (0-0.2); Basophils % (A) 1 %; CH 30.1; CHCM 32.8; Eosinophils # (A) 0.3 k/uL (0-0.7); Eosinophils % (A) 3 %; HCT 36.2 % (39.0-53.0); HGB 11.6 gm/dL (13.0-17.5); Luc # (Auto) 0.17; Luc % (Auto) 2; Lymphocytes % (A) 19 %; MCH 29.7 pg (25.0-35.0); MCHC 32.2 g/dL (31.0-37.0); MCV 92.2 fL (80.0-100.0); Mean Platelet Volume 9.8; Monocytes # (A) 0.6 k/uL (0-1.0); Monocytes % (A) 6 %; Neutrophils # (A) 7.3 k/uL (1.3-7.7); Neutrophils % (A) 70 %; RBC 3.93 m/uL (4.30-5.90); RDW 13.5 % (11.5-15.5); WBC 10.3 k/uL (3.8-10.6); WBC (Perox) 10.09
[2016-11-16 03:07] LABS: Anion Gap 10 mmol/L; Blood Urea Nitrogen 28 mg/dL (9-20); Calcium 9.2 mg/dL (8.4-10.2); Carbon Dioxide 33 mmol/L (22-30); Chloride 91 mmol/L (98-107); Non-African American GFR(MDRD) >60 (>60 ml/min/1.73 sqM); Sodium 134 mmol/L (137-145)
[2016-11-16 03:15] LABS: Glucose 453 mg/dL (74-99)
[2016-11-16 03:22] LABS: Appearance,Urine Clear (Clear); Bilirubin,Urine Negative (Negative); Glucose,Urine (UA) 4+ (Negative); Ketones,Urine Negative (Negative); Leukocyte Esterase,Urine Small (Negative); Nitrite,Urine Negative (Negative); PH, Urine 6.5 (5.0-8.0); Particle Count 1129; Protein,Urine Negative (Negative); RBC,Urine <1 /hpf (0-5); Specific Gravity,Urine 1.011 (1.001-1.035); UA Billing (MACRO vs. MICRO) MICRO; Urobilinogen,Urine <2.0 mg/dL (<2.0); WBC,Urine 15 /hpf (0-5)
[2016-11-16 04:39] LABS: Glucose,Whole Blood 347 mg/dL (75-99)
[2016-11-16 06:35] LABS: Glucose,Whole Blood 311 mg/dL (75-99)
[2016-11-16 08:02] LABS: Glucose,Whole Blood 273 mg/dL (75-99)
--- NOTE | 2016-11-16 08:18 | ED ---
Recheck HPI - General Chief Complaint: Recheck/Abnormal Lab/Rx Stated Complaint: Hyperglycemia Time Seen by Provider: 11/16/16 02:40 Source: patient Mode of arrival: EMS Limitations: no limitations - History of Present Illness Initial Comments: This patient is a 61-year-old man sent from the [facility] to be evaluated for elevated blood sugar. Was reported that he had a blood sugar that was measured just above 550 in the evening. The on-call physician for the [facility] requested that the patient be sent to ER to have evaluation. The patient is denying complaints. MD Complaint: abnormal lab -: hour(s) Returns Today for: Called Because of Abnormal Lab/Test Symptoms Since Prior Visit: no new symptoms Associated Symptoms: none - Related Data Home Medications Medication Instructions Recorded Confirmed Albuterol Inhaler [Ventolin Hfa 2 puff INHALATION RT-Q6H PRN 08/25/15 11/16/16 Inhaler] Insulin Aspart [NovoLOG] 24 unit SQ BID 11/16/16 11/16/16 Nitroglycerin Sl Tabs [Nitrostat] 0.4 mg SUBLINGUAL Q5M PRN 11/16/16 11/16/16 Thiamine [Vitamin B-1] 100 mg PO DAILY 11/16/16 11/16/16 Verapamil [Isoptin] 40 mg PO Q8H 11/16/16 11/16/16 Previous Rx's Medication Instructions Recorded Digoxin [Lanoxin] 125 mcg PO DAILY tab 09/06/15 Acetaminophen Tab [Tylenol] 650 mg PO Q4HR PRN tab 08/23/16 Atorvastatin [Lipitor] 40 mg PO HS tab 08/23/16 Budesonide [Pulmicort] 0.5 mg INHALATION RT-BID neb 08/23/16 Docusate [Colace] 100 mg PO BID cap 08/23/16 Furosemide [Lasix] 40 mg PO DAILY tab 08/23/16 Ipratropium-Albuterol Nebulize 3 ml INHALATION RT-Q4H PRN neb 08/23/16 [Duoneb 0.5 mg-3 mg/3 ml Soln] Lisinopril [Zestril] 40 mg PO DAILY tab 08/23/16 Metoprolol Tartrate [Lopressor] 50 mg PO BID tab 08/23/16 Nicotine 21Mg/24Hr Patch [Habitrol] 1 patch TRANSDERM DAILY patch 08/23/16 Pantoprazole [Protonix] 40 mg PO AC-BRKFST tab 08/23/16 Rivaroxaban [Xarelto] 20 mg PO W/BRKFST tab 08/23/16 guaiFENesin [Mucinex] 1,200 mg PO Q12HR tab 08/23/16 rOPINIRole HCL [Requip] 0.5 mg PO HS #30 tab 08/23/16 Allergies Allergy/AdvReac Type Severity Reaction Status Date / Time No Known Allergies Allergy Verified 11/16/16 08:00 Review of Systems ROS Statement: Those systems with pertinent positive or pertinent negative responses have been documented in the HPI. ROS Other: All systems not noted in ROS Statement are negative. Constitutional: Denies: fever, weakness Respiratory: Denies: cough, dyspnea Cardiovascular: Denies: chest pain, palpitations Gastrointestinal: Denies: abdominal pain, vomiting, diarrhea Genitourinary: Denies: dysuria Musculoskeletal: Denies: back pain Skin: Denies: rash Neurological: Denies: headache, weakness, numbness Past Medical History Past Medical History: Atrial Fibrillation, Cancer, Heart Failure, COPD, CVA/TIA , Diabetes Mellitus, GERD/Reflux, Hearing Disorder / Deafness, Hypertension, Pneumonia Additional Past Medical History / Comment(s): Paroxysmal Afib, cva july 2015 and residual weakness in legs, 02 2 liters n/c ATC, etoh abuse, chronic hyponatremia , generalized weakness, increasing falls, prostate cancer with sx, [place] bilaterally, difficulty with urinary stream, DDD, chronic low back pain. History of Any Multi-Drug Resistant Organisms: None Reported Past Surgical History: Appendectomy, Prostate Surgery Additional Past Surgical History / Comment(s): removal testicles -does not know reason- one removed when he was 19 the other six years ago, prostatectomy, colonoscopy. Past Anesthesia/Blood Transfusion Reactions: No Reported Reaction Past Psychological History: No Psychological Hx Reported Smoking Status: Former smoker Past Alcohol Use History: None Reported Past Drug Use History: None Reported - Past Family History Father History Unknown: Yes Additional Family Medical History / Comment(s): from complications from alcoholism Mother Family Medical History: Unable to Obtain Additional Family Medical History / Comment(s): committed suicide by hanging. General Exam General appearance: alert, in no apparent distress Head exam: Present: atraumatic, normocephalic Eye exam: Present: normal appearance. Absent: scleral icterus, conjunctival injection ENT exam: Present: mucous membranes dry Neck exam: Absent: tenderness Respiratory exam: Present: normal lung sounds bilaterally. Absent: respiratory distress, wheezes, rales, rhonchi, stridor Cardiovascular Exam: Present: regular rate, normal rhythm, normal heart sounds GI/Abdominal exam: Present: soft. Absent: distended, tenderness, guarding, mass Extremities exam: Present: normal capillary refill. Absent: pedal edema, calf tenderness Back exam: Present: normal inspection. Absent: CVA tenderness (R), CVA tenderness (L) Neurological exam: Present: alert Skin exam: Present: warm, dry, intact, normal color. Absent: rash Course Vital Signs 11/16/16 11/16/16 11/16/16 02:26 04:42 05:56 Temperature 98.7 F Pulse Rate 74 71 69 Respiratory 18 18 18 Rate Blood Pressure 140/79 139/66 109/53 O2 Sat by Pulse 98 98 98 Oximetry 11/16/16 11/16/16 06:52 08:02 Temperature Pulse Rate 70 71 Respiratory 18 18 Rate Blood Pressure 132/66 163/86 O2 Sat by Pulse 70 L 97 Oximetry - Reevaluation(s) Reevaluation #1: 11/16/16 08:23 Reevaluated patient. He states he is feeling fine and that he wants to go back to [facility]-way, where the beds are more comfortable. States that he does not need anything else at the moment Medical Decision Making - Lab Data Result diagrams: 11/16/16 02:39 11/16/16 02:39 Lab Results 11/16/16 11/16/16 11/16/16 Range/Units 02:38 02:39 02:39 WBC (3.8-10.6) k/uL RBC (4.30-5.90) m/uL Hgb (13.0-17.5) gm/dL Hct (39.0-53.0) % MCV (80.0-100.0) fL MCH (25.0-35.0) pg MCHC (31.0-37.0) g/dL RDW (11.5-15.5) % Plt Count (150-450) k/uL Neutrophils % % Lymphocytes % % Monocytes % % Eosinophils % % Basophils % % Neutrophils # (1.3-7.7) k/uL Lymphocytes # (1.0-4.8) k/uL Monocytes # (0-1.0) k/uL Eosinophils # (0-0.7) k/uL Basophils # (0-0.2) k/uL Sodium 134 L (137-145) mmol/L Potassium 5.0 (3.5-5.1) mmol/L Chloride 91 L (98-107) mmol/L Carbon Dioxide 33 H (22-30) mmol/L Anion Gap 10 mmol/L BUN 28 H (9-20) mg/dL Creatinine 0.60 L (0.66-1.25) mg/dL Est GFR (MDRD) Af Amer >60 (>60 ml/min/1.73 sqM) Est GFR (MDRD) Non-Af >60 (>60 ml/min/1.73 sqM) Glucose 453 H* (74-99) mg/dL POC Glucose (mg/dL) 441 H (75-99) mg/dL POC Glu Industrial Machine Operator ID Sharifa Lopez Calcium 9.2 (8.4-10.2) mg/dL Urine Color Urine Appearance (Clear) Urine pH (5.0-8.0) Ur Specific Joy (1.001-1.035) Urine Protein (Negative) Urine Glucose (UA) (Negative) Urine Ketones (Negative) Urine Blood (Negative) Urine Nitrite (Negative) Urine Bilirubin (Negative) Urine Urobilinogen (<2.0) mg/dL Ur Leukocyte Esterase (Negative) Urine RBC (0-5) /hpf Urine WBC (0-5) /hpf Acetone, Qual Negative (Negative) 11/16/16 11/16/16 11/16/16 Range/Units 02:39 03:00 04:34 WBC 10.3 (3.8-10.6) k/uL RBC 3.93 L (4.30-5.90) m/uL Hgb 11.6 L (13.0-17.5) gm/dL Hct 36.2 L (39.0-53.0) % MCV 92.2 (80.0-100.0) fL MCH 29.7 (25.0-35.0) pg MCHC 32.2 (31.0-37.0) g/dL RDW 13.5 (11.5-15.5) % Plt Count 157 (150-450) k/uL Neutrophils % 70 % Lymphocytes % 19 % Monocytes % 6 % Eosinophils % 3 % Basophils % 1 % Neutrophils # 7.3 (1.3-7.7) k/uL Lymphocytes # 2.0 (1.0-4.8) k/uL Monocytes # 0.6 (0-1.0) k/uL Eosinophils # 0.3 (0-0.7) k/uL Basophils # 0.1 (0-0.2) k/uL Sodium (137-145) mmol/L Potassium (3.5-5.1) mmol/L Chloride (98-107) mmol/L Carbon Dioxide (22-30) mmol/L Anion Gap mmol/L BUN (9-20) mg/dL Creatinine (0.66-1.25) mg/dL Est GFR (MDRD) Af Amer (>60 ml/min/1.73 sqM) Est GFR (MDRD) Non-Af (>60 ml/min/1.73 sqM) Glucose (74-99) mg/dL POC Glucose (mg/dL) 347 H (75-99) mg/dL POC Glu Industrial Machine Operator ID Sharifa Lopez Calcium (8.4-10.2) mg/dL Urine Color Light Yellow Urine Appearance Clear (Clear) Urine pH 6.5 (5.0-8.0) Ur Specific Joy 1.011 (1.001-1.035) Urine Protein Negative (Negative) Urine Glucose (UA) 4+ H (Negative) Urine Ketones Negative (Negative) Urine Blood Negative (Negative) Urine Nitrite Negative (Negative) Urine Bilirubin Negative (Negative) Urine Urobilinogen <2.0 (<2.0) mg/dL Ur Leukocyte Esterase Small H (Negative) Urine RBC <1 (0-5) /hpf Urine WBC 15 H (0-5) /hpf Acetone, Qual (Negative) 11/16/16 11/16/16 11/16/16 Range/Units 06:19 08:01 08:32 WBC (3.8-10.6) k/uL RBC (4.30-5.90) m/uL Hgb (13.0-17.5) gm/dL Hct (39.0-53.0) % MCV (80.0-100.0) fL MCH (25.0-35.0) pg MCHC (31.0-37.0) g/dL RDW (11.5-15.5) % Plt Count (150-450) k/uL Neutrophils % % Lymphocytes % % Monocytes % % Eosinophils % % Basophils % % Neutrophils # (1.3-7.7) k/uL Lymphocytes # (1.0-4.8) k/uL Monocytes # (0-1.0) k/uL Eosinophils # (0-0.7) k/uL Basophils # (0-0.2) k/uL Sodium (137-145) mmol/L Potassium (3.5-5.1) mmol/L Chloride (98-107) mmol/L Carbon Dioxide (22-30) mmol/L Anion Gap mmol/L BUN (9-20) mg/dL Creatinine (0.66-1.25) mg/dL Est GFR (MDRD) Af Amer (>60 ml/min/1.73 sqM) Est GFR (MDRD) Non-Af (>60 ml/min/1.73 sqM) Glucose (74-99) mg/dL POC Glucose (mg/dL) 311 H 273 H 281 H (75-99) mg/dL POC Glu Industrial Machine Operator ID Maria Isabel Oliveira Alison [place], Alison Calcium (8.4-10.2) mg/dL Urine Color Urine Appearance (Clear) Urine pH (5.0-8.0) Ur Specific Joy (1.001-1.035) Urine Protein (Negative) Urine Glucose (UA) (Negative) Urine Ketones (Negative) Urine Blood (Negative) Urine Nitrite (Negative) Urine Bilirubin (Negative) Urine Urobilinogen (<2.0) mg/dL Ur Leukocyte Esterase (Negative) Urine RBC (0-5) /hpf Urine WBC (0-5) /hpf Acetone, Qual (Negative) Disposition Clinical Impression: Hyperglycemia due to type 2 diabetes mellitus Disposition: HOME SELF-CARE Condition: Good Instructions: Diabetic Hyperglycemia (ED) Referrals: Danny Morse MD [Primary Care Provider] - 1-2 days
[2016-11-16 08:34] LABS: Glucose,Whole Blood 281 mg/dL (75-99)
[2016-11-16 08:54] VITALS: BP 148/74; PULSE 78; TEMP 98
== END 2016-11-16 09:30 | disposition home or self-care (01) ==
LOC: EC 02:20
DX: E11.65 Type 2 diabetes mellitus with hyperglycemia (principal); I10 Essential (primary) hypertension; Z85.46 Personal history of malignant neoplasm of prostate; Z87.891 Personal history of nicotine dependence; Z79.4 Long term (current) use of insulin; Z79.899 Other long term (current) drug therapy
CPT/HCPCS: 36415; 80048; 81001; 82009; 85025; 96360; 96361; 99284

== ENCOUNTER → 2017-09-17 | Outpatient (CLI) | payer OTHER ==
--- NOTE | 2017-09-17 15:13 | CT ---
EXAMINATION TYPE: CT abdomen pelvis w con DATE OF EXAM: 09/17/2017 COMPARISON: NONE HISTORY: Patient poor historian. Patient complains of generalized abdominal pain. CT DLP: 2389.2 mGycm Automated exposure control for dose reduction was used. TECHNIQUE: Helical acquisition of images was performed from the lung bases through the pelvis. CONTRAST: Performed with Oral Contrast and with IV Contrast, patient injected with 100 mL of Isovue 300. FINDINGS: LUNG BASES: Left basilar subsegmental atelectasis is present. There is partially visualized left retr oareolar breast density that likely relates to gynecomastia as this was present on the prior exam of 08/14/2016. LIVER/GB: Hepatic parenchyma is diffusely hypoattenuated in comparison to that of the spleen, most co mmonly seen in hepatic steatosis. This finding limits evaluation for hepatic masses. No gross evidenc e of hepatic mass is seen. No intrahepatic biliary ductal dilatation. No cholelithiasis. PANCREAS: No significant abnormality is seen. SPLEEN: No significant abnormality is seen. ADRENALS: No nodularity or or significant thickening. KIDNEYS: Kidneys enhance symmetrically without hydronephrosis. FREE AIR: No free air is visualized. ADENOPATHY: No greater than 1 cm short axis lymph node is seen within the abdomen or pelvis. REPRODUCTIVE ORGANS: Prostate gland is nonenlarged OSSEOUS STRUCTURES: Nonspecific sclerotic 2 mm focus within the right ischial tuberosity is present. Mild multilevel degenerative changes of the spine are noted as well as of the femoral acetabular taryn nts. BOWEL: Ascending colon and cecum are slightly limited due to incomplete distention and haustral thic kening likely related to peristalsis. OTHER: Extensive atheromatous changes are seen of the abdominal aorta and its branches. Abdominal aor ta is of normal course and caliber. There is a small fat filled left inguinal hernia with few calcifications seen, likely phleboliths. Th is is best seen on coronal series 8 image 50 through 62. Additionally there is a very small fat fille d umbilical hernia and ventral diastases recti. IMPRESSION: 1. NO ACUTE INTRA-ABDOMINAL PROCESS. 2. FINDINGS MOST COMMONLY RELATED TO MILD HEPATIC STEATOSIS. 3. INCOMPLETE EVALUATION OF THE ASCENDING COLON DUE TO INCOMPLETE DISTENTION WITH HAUSTRAL FOLD THICK ENING LIKELY RELATED TO PERISTALSIS. IF THERE IS FURTHER CONCERN COLONOSCOPY COULD BE PERFORMED. 4. SMALL FAT FILLED LEFT INGUINAL HERNIA.
== END | disposition home or self-care (01) ==
LOC: RADCTMAIN 11:52
PROVIDERS: ATTEND Family Medicine
DX: K40.90 Unilateral inguinal hernia, without obstruction or gangrene, not specified as recurrent (principal); K63.89 Other specified diseases of intestine; R10.9 Unspecified abdominal pain
CPT/HCPCS: 74177; Q9967